=== PATIENT | female | born 1930 | race Caucasian/White ===

== ENCOUNTER 2016-04-20 20:16 | Inpatient (IN) | payer OTHER, MEDICARE ==
[~2016-04-20] VITALS: Ht 157.5 cm; Wt 54.4 kg
[~2016-04-20 20:16] MED LIST: ACEPHEN650 MG PR; ACETAMINOPHEN500 M4 PO; ACIDOPHILUS1 CAP PO; ALEVE220 MG PO; ANTIVERT25 MG PO; APAP/CODEINE 301 TAB PO; ASPERCREME HE70.8 GM PAT; ATENOLOL25 MG PO; ATIVAN1 M1 PO; ATORVASTATIN CA10 MG PO; AUGMENTIN 500M500 MG PO; BACTRIM DS 8001 TAB PO; BAYER ASPIRIN R81 MG PO; BENGAY ULTRA STREN5% TOP; CIPRO 250MG250 MG PO; CIPRO 500MG TA500 MG PO; COLACE100 MG PO; DILAUDID2 M1 PO; DILAUDID4 M1 PO; DILAUDID8 M1 PO; DULCOLAX10 MG PR; DULCOLAX5 M1 PO; FLEET ENEMA 131 UNIT RC; FUROSEMIDE20 MG; FUROSEMIDE40 MG PO; GABAPENTIN300 MG PO; GOOD NEIGHBOR650 M1 PO; HYDROCO/APAP TAB 5-3 PO; HYDROMORPHONE HC2 M1 PO; HYDROMORPHONE HC4 M1 PO; IMODIUM 2 MG. CA2 MG PO; LACTULOSE10 GM/153 PO; LASIX20 MG PO; LEVOTHYROXINE0.05 M1 PO; LEVOTHYROXINE50 MCG PO; LIDOCAINE51 TOP; LIDODERM1 EACH EXT; LOPRESSOR 25MG25 MG PO; LORAZEPAM0.5 M1 PO; LORAZEPAM1 MG PO; MACROBID100 MG PO; MACRODANTIN 50M50 MG PO; MECLIZINE HCL25 M1 PO; MECLIZINE HCL25 MG PO; METOPROLOL TART50 M1 PO; MILK OF MAGNESI30 ML PO; MIRALAX17 G1 PO; MIRALAX17 GM PO; MYRBETRIQ25 M1; NAPROXEN375 MG PO; NEURONTIN300 MG PO; NITROFURANTOIN100 MG PO; NORCO 325 MG-51 TAB PO; ONDANSETRON HCL4 MG PO; PERCOCET 325 MG1 TA2 PO; PERCOCET 5-3251 EACH PO; PRAVASTATIN40 MG PO; PREDNISONE 1 MG1 MG PO; PREDNISONE10 M2 PO; PREDNISONE5 M1 PO; PRILOSEC 20MG C20 MG PO; PROBIOTIC FORMU1 CAP PO; ROBITUSSIN COU237 ML PO; SENNA CON/DOCUS1 TAB PO; TRAMADOL HCL50 M1 PO; TRAMADOL HCL50 MG PO; TRAMADOL50 MG PO; TYLENOL TAB 32325 MG PO; TYLENOL325 M1 PO; VITAMIN D31000 IU PO; VOLTAREN100 GM TOP; ZITHROMAX250 M2 PO; ZOFRAN 4 MG TABL4 MG PO
[2016-04-20] MEDS ORDERED: HYDROMORPHONE HC2 M1 PO (20:31)
[2016-04-20] MEDS ORDERED: LEVOFLOXACIN500 M1 PO (20:32)
[2016-04-20] MEDS ORDERED: METOPROLOL TART50 M1 PO (20:36)
--- NOTE | 2016-04-20 20:39 | ED DYSPNEA/ASTHMA COMPLAINT ---
History of Present Illness General Chief Complaint: General Adult Stated Complaint: BIBA WITH PROBLEM BREATHIN Source: patient, EMS Exam Limitations: no limitations Allergies Coded Allergies: Sulfa (Sulfonamide Antibiotics) (HIVES 11/13/15) cyclobenzaprine (Severe, LIGHTHEADED 11/13/15) nitrofurantoin (Severe, SWEATING, DIZZY, RED ALL OVER, SHAKING 11/13/15) codeine (GI 11/13/15) mushroom (DIZZY 11/13/15) Reconcile Medications Aspirin (Aysha Aspirin Regimen) 81 MG ECT 2 TAB PO DAILY HEART (Reported) Atorvastatin Calcium (Lipitor) 10 MG TAB 1 TAB PO DAILY CHOLESTEROL (Reported ) Bisacodyl (Dulcolax) 5 MG TABLET.DR 2 TAB PO DAILY GI (Reported) Cholecalciferol (Vitamin D3) 1,000 IU TAB 1 TAB PO DAILY SUPPLEMENT Hydromorphone HCl 4 MG TABLET 1 TAB PO TID PRN PAIN (Reported) Hydromorphone HCl 2 MG TABLET 1 TAB PO QHS PRN PAIN (Reported) Levofloxacin 500 MG TABLET 1 TAB PO DAILY ANTIBIOTIC (Reported) Levothyroxine Sodium 50 MCG TABLET 1 TAB PO DAILY THYROID (Reported) Lorazepam 0.5 MG TABLET 1 TAB PO DAILY NEEDED ANXIETY (Reported) Meclizine HCl 25 MG TABLET 1 TAB PO TIDPRN DIZZY (Reported) Metoprolol Tartrate (Unknown Strength) TABLET 50 MG PO BID HEART/BP (Reported ) Triage Nurses Notes Reviewed? yes HPI: This patient is an 85-year-old female with a past medical history including atrial fibrillation who presented to the emergency department today brought in by ambulance for multiple complaints. This patient is a poor historian. PER EMS , this patient's visiting nurse felt that she needed to come to the emergency department for evaluation. Reported that she had been weak, incontinent which is not her baseline, fever to 102F, complaining of shortness of breath, and no appetite for food or drink. The patient is complaining of 10 out of 10 back pain. She was unable to describe the pain, but reported that it is in her lower back. She reported that she was unable to sleep last night due to the pain. She thinks that the pain began today. The patient denied any chest pain or difficulty breathing here in the emergency department. She denied any abdominal pain, nausea, vomiting. (CHAD HARRELL PA-C) Vital Signs & Intake/Output Vital Signs & Intake/Output Vital Signs Date Time Temp Pulse Resp B/P Pulse O2 O2 Flow FiO2 Ox Delivery Rate 04/21 1302 Nasal 5.0L Cannula 04/21 1023 100 117/70 04/21 0800 96 Nasal 2.5L Cannula 04/21 0702 99.0 90 20 117/70 04/21 0324 96 Nasal 2.5L Cannula 04/21 0134 102 117/67 04/21 0105 98.3 100 20 117/68 95 Nasal Cannula 04/21 0017 95 Nasal 2.5L Cannula 04/20 2346 98.3 108 20 117/68 95 Nasal 2.5L Cannula 04/20 2228 100.0 110 18 120/66 93 Nasal 2.5L Cannula 04/20 2210 100.2 04/20 2201 100.2 122 20 111/56 93 Nasal 2.0L Cannula 04/20 2200 100.2 122 20 111/56 04/20 2134 100.8 127 20 143/70 94 Nasal 2.0L Cannula 04/20 2100 101.1 04/20 205 93 Room Air 04/20 205 101.1 150 18 136/92 04/20 2045 101.1 150 18 136/92 93 Room Air ED Intake and Output 04/21 0000 04/20 1200 Intake Total 1000 Output Total Balance 1000 Intake, IV 1000 Patient 130 lb Weight Past History Travel History Traveled to [place] past 21 day No Medical History Any Pertinent Medical History? see below for history Neurological: CVA EENT: NONE Cardiovascular: AFIB, hypertension Respiratory: NONE Gastrointestinal: GERD Hepatic: NONE Renal: NONE Musculoskeletal: osteoarthritis, rheumatoid arthritis, L SCAPULA FX Psychiatric: anxiety Endocrine: hypothyroidism Blood Disorders: DEHYDRATION Cancer(s): NONE MANAGER EXPRESS/Reproductive: NONE History of MRSA: No History of VRE: No History of CDIFF: No Pneumonia Vaccine: 01/05/15 Influenza Vaccine: 01/06/16 Surgical History Surgical History: appendectomy, cholecystectomy Psychosocial History Who do you live with Patient/Self Services at Home Home Health Aide What is your primary language Indonesian Tobacco Use: Never used Family History Family History, If Any: DAUGHTER FH: diabetes mellitus Hx Contributory? No (CHAD HARRELL PA-C) Review of Systems Review of Systems Constitutional: Reports: see HPI. EENTM: Reports: no symptoms. Respiratory: Reports: see HPI. Cardiovascular: Reports: no symptoms. GI: Reports: no symptoms. Genitourinary: Reports: see HPI. Musculoskeletal: Reports: see HPI. Skin: Reports: no symptoms. Neurological/Psychological: Reports: no symptoms. All Other Systems: Reviewed and Negative (JULIO CESAR SHUKLA,CHAD) Physical Exam Physical Exam Respiratory: normal breath sounds, chest non-tender, no respiratory distress, NO WHEEZES, RALES, OR RHONCHI Comments: Well-developed well-nourished person who appears anxious PERRLA bilaterally Neck: Supple, no lymphadenopathy. No midline tenderness Back: Normal inspection. Positive midline tenderness over the lumbar spine Cardiovascular: Irregularly irregular Abdomen: Soft, nontender nondistended with normoactive bowel sounds Extremity: No edema, no calf tenderness to palpation, normal and equal pulses. Neuro: Alert oriented x3, cranial nerves II through XII grossly intact. Skin: No appreciable rash on exposed skin, skin is warm and dry. Psych: Mood and affect is anxious Core Measures ACS in differential dx? Yes Severe Sepsis Present: No Septic Shock Present: No (JULIO CESAR SHUKLA,CHAD) Progress Differential Diagnosis: asthma, AMI, bronchitis, costochondritis, CHF, COPD, musculoskeletal pain, pericarditis, pulmonary embolism, pneumonia, pneumothorax, unstable angina, ATRIAL FIBRILLATION Diagnostic Imaging: Viewed by Me: Radiology Read. Discussed w/RAD: Radiology Read. CXR Impression: PATIENT: ARMAAN REED PRESENT AGE: 85 PATIENT ACCOUNT NO: [id number] : 31 LOCATION: [facility] ORDERING PHYSICIAN: CHAD HARRELL PA-C SERVICE DATE: 04/20/16 EXAM TYPE: RAD - XRY- PORTABLE CHEST XRAY EXAMINATION: XR CHEST PORTABLE CLINICAL INFORMATION: Atrial fibrillation. Rule out mass or bleed. COMPARISON: Chest radiography 03/09/2016. TECHNIQUE: Portable view of the chest was obtained. FINDINGS: The lungs are well -expanded. Persistent left basilar opacification and blunting of the left costophrenic angle. No overt pulmonary edema. No pneumothorax. Prominence of the cardiac silhouette. No acute osseous abnormalities. IMPRESSION: Persistent left basilar opacification likely representing pleural effusion and adjacent basilar atelectasis/consolidation. No overt pulmonary edema. DICTATED BY: CARLOS KYLE MD DATE/TIME DICTATED:04/20/162118 NEUROSURGEON:NARINDER DATE/TIME TRANSCRIBED:04/20/162118 CONFIDENTIAL, DO NOT COPY WITHOUT APPROPRIATE AUTHORIZATION. <Electronically signed in Other Vendor System> SIGNED BY: CARLOS KYLE MD 04/20/162132 Initial ED EKG: AFIB, rapid ventricular rate, ST depression in lead V4 similar to prior EKG Hand-Off Endorsed To: SHIRA CUTLER MD Endorsed Time: 2250 Pending: CT, labs, other Comments: 04/20/2016 9:51:29 PM: Discussed this patient with Dr. CUTLER who recommended starting with 10 mg IV of Cardizem and increasing by 15 mg each time thereafter. (JULIO CESAR SHUKLA,CHAD) Plan of Care: Orders Procedure Date/time Status Heart Healthy Diet 04/21 B Active RT: Reevaluation 04/21 1301 Active RT: Evaluation 04/21 1301 Active TROPONIN LEVEL 04/21 0600 Complete CBC WITHOUT DIFFERENTIAL 04/21 0600 Complete BASIC ELECTROLYTES PLUS BUN&CR 04/21 0600 Complete EKG 04/21 0600 Active TRC EVALUATION (GEN) 04/21 0051 Complete PT Evaluate & Treat 04/21 0051 Active Saline Lock 04/21 0051 Active Pathway - chart 04/21 0051 Active House Staff 04/21 0051 Active STREP PNEUMO URINARY ANTIGEN 04/21 0051 Complete LEGIONELLA URINARY ANTIGEN 04/21 0051 Complete LOWER RESPIRATORY CULTURE 04/21 0051 Active Code Status 04/21 0051 Active Vital Signs 04/21 0009 Active Teach/Educate 04/21 000 Active Nutritional Intake, Monitor 04/21 8 Active Isolation 04/21 0009 Active Intake & Output 04/21 000 Active Patient Care Conference 04/21 0009 Active Activity/Ambulation 04/21 0009 Active THERAPIST ORDERS 04/21 UNK Complete Lab Add-on Test 04/21 UNK Active VTE Mechanical Prophylaxis 04/21 UNK Active Vital Signs 04/21 UNK Complete Intake & Output 04/21 UNK Complete ECHOCARDIOGRAM 04/21 UNK Active Add-on Test (ER Only) 04/20 2350 Active OXYGEN SETUP (GEN) 04/20 2329 Active Saline Lock 04/20 2329 Active Admit to inpatient 04/20 2329 Active Vital Signs 04/20 2329 Active Activity/Ambulation 04/20 232 Active Code Status 04/20 232 Complete Patient Data 04/20 2318 Active Intake & Output 04/20 2313 Active VIRAL CULTURE 04/20 2309 Active THYROID STIMULATING HORMONE 04/20 2049 Complete PHOSPHORUS 04/20 2049 Complete FREE T4 04/20 2049 Complete DIRECT BILIRUBIN 04/20 2049 Complete BLOOD CULTURE 04/20 2040 Active URINALYSIS 04/20 2040 Complete LACTIC ACID 04/20 2040 Complete D-DIMER 04/20 2040 Complete RAPID VIRAL INFLUENZA A 04/20 2037 Complete TROPONIN LEVEL 04/20 2037 Complete PARTIAL THROMBOPLASTIN TIME 04/20 2037 Complete PROTHROMBIN TIME 04/20 2037 Complete MAGNESIUM 04/20 2037 Complete COMPREHENSIVE METABOLIC PANEL 04/20 2037 Complete CBC WITHOUT DIFFERENTIAL 04/20 2037 Complete EKG 04/20 2021 Active Current Medications Sig/Yessenia Start time Last Medication Dose Stop Time Status Admin Hydromorphone HCl 2 MG Q6P PRN 04/21 0300 AC (Dilaudid) Lorazepam 0.5 MG DAILY NEEDED 04/21 030 AC (Ativan) 04/28 0259 Acetaminophen 650 MG Q6P PRN 04/21 0030 AC (Tylenol) Ibuprofen 600 MG Q6P PRN 04/21 0030 AC (Motrin) Laboratory Tests 04/21/16 0645: Anion Gap 11, Estimated GFR 60, BUN/Creatinine Ratio 17.8, Troponin I 0.02, CBC w Diff NO MAN DIFF REQ, RBC 2.60 L, MCV 92.3, MCH 31.1 H, RDW 15.7 H, MPV 7.6 , Gran % 61.5, Lymphocytes % 28.2, Monocytes % 9.3, Eosinophils % 0.5, Basophils % 0.5, Absolute Granulocytes 1.5, Absolute Lymphocytes 0.7 L, Absolute Monocytes 0.2, Absolute Eosinophils 0, Absolute Basophils 0, PUBS MCHC 33.7 04/21/16 0117: Urine Color YEL, Urine Clarity HAZY H, Urine pH 6.0, Ur Specific Minto 1.015, Urine Protein 30 H, Urine Ketones TRACE H, Urine Nitrite NEG, Urine Bilirubin NEG, Urine Urobilinogen 0.2, Ur Leukocyte Esterase NEG, Ur Microscopic SEDIMENT EXAMINED, Urine RBC 3-5, Urine WBC 1-3 H, Ur Epithelial Cells FEW, Urine Mucus RARE, Urine Hemoglobin TRACE-INTACT, Urine Glucose NEG 04/20/16 2341: Lactic Acid Cancelled 04/20/16 2310: Virus Culture Pending 04/20/162049: Lactic Acid 1.5, D-Dimer 903 H 04/20/162049: Anion Gap 13, Estimated GFR 60, BUN/Creatinine Ratio 21.1, Glucose 99, Calcium 8.8, Phosphorus 3.6, Magnesium 1.8, Total Bilirubin 1.4 H, Direct Bilirubin 0.6 H, AST 27, ALT 23, Alkaline Phosphatase 59, Troponin I 0.02, Total Protein 6.7, Albumin 3.8, Globulin 2.9, Albumin/Globulin Ratio 1.3, TSH 1.370, Free T4 0.99, PT 13.2 H, INR 1.26 H, APTT 31, CBC w Diff NO MAN DIFF REQ, RBC 3.27 L, MCV 92.2, MCH 30.9, RDW 15.6 H, MPV 7.8, Gran % 78.7 H, Lymphocytes % 13.6 L, Monocytes % 6.8, Eosinophils % 0.2, Basophils % 0.7, Absolute Granulocytes 3.2, Absolute Lymphocytes 0.6 L, Absolute Monocytes 0.3, Absolute Eosinophils 0, Absolute Basophils 0, PUBS MCHC 33.5 Microbiology 04/21 116 URINE ROUT: Legionella Antigen - COMP 04/21 116 URINE ROUT: Streptococcus pneumoniae Antigen (M - COMP 04/21 50 LOWER RESP: Respiratory Culture - COLB 04/21 50 LOWER RESP: Gram Stain - COLB 04/20 2134 BLOOD: Blood Culture - RES 04/20 2049 BLOOD: Blood Culture - RES Departure Departure Disposition: STILL A PATIENT Condition: Stable Clinical Impression Primary Impression: Pneumonia Qualifiers: Pneumonia type: due to unspecified organism Laterality: unspecified laterality Lung location: unspecified part of lung Qualified Code: J18.9 - Pneumonia, unspecified organism Referrals: SHEY CARDENAS MD (PCP/Family) Departure Forms: Customer Survey General Discharge Information Admission Note Documentation of Exam: Documentation of any treatments & extenuating circumstances including Concerns Regarding Discharge (functional status, medication knowledge or non-compliance, living conditions, etc.) that warrant an admission rather than observation: [ This patient is an 85-year-old female with a past medical history including atrial fibrillation who presented to the emergency department today for evaluation of weakness, shortness of breath, and lower back pain. Likely persistent pneumonia seen on chest x-ray despite outpatient antibiotic therapy. This patient will need to be brought into the emergency department for cardiac monitoring, cardiology consultation, possible Cardizem drip, IV antibiotics, gentle hydration, trend labs, follow-up blood cultures, PT consultation, and close monitoring. Premature discharge could prove medically harmful.] (CHAD HARRELL PA-C) PA/SAFE EXPERT Co-Sign Statement Statement: ED Attending supervision documentation- x I saw and evaluated the patient. I have also reviewed all the pertinent lab results and diagnostic results. I agree with the findings and the plan of care as documented in the PA's/SAFE EXPERT's documentation. [] I have reviewed the ED Record and agree with the PA's/SAFE EXPERT's documentation. [] Additions or exceptions (if any) to the PAs/SAFE EXPERT's note and plan are summarized below: [] (OMAYRA SHAIKH,SHIRA) Critical Care Note Critical Care Note Critical Care Time: non-applicable (CHAD HARRELL PA-C)
--- NOTE | 2016-04-20 20:40 | NUR ---
PT TO ROOM 21 BIBA FROM HOME FOR GENERAL WEAKNESS, LETHARGY, FEVER, SOB, COUGH, NO APPETITE, INCONTINENCE x2DAYS. PT CURRENTLY ON LEVOFLOXACIN FOR ?PNEUMONIA PER HER PCP. PT ARRIVED AAOx2, RAPID AFIB 150'S ON REED FIXER, TEMP 101.1, NO RESP DISTRESS NOTED, O2SAT 93% ON RA. PT DENIES CHEST PAIN,ABD PAIN, DENIES SOB, C/O BACK PAIN. HX OF AFIB,HTN, CVA, GERD, ARTHRITIS.
--- NOTE | 2016-04-20 20:51 | NUR ---
DARIUS BONILLA AT BEDSIDE FOR PT EVAL. BLOOD DRAWN AND SENT TO LAB-[facility], 1ST BC.
--- NOTE | 2016-04-20 20:52 | NUR ---
CARDIZEM 10MG IV ADMINISTERED PER ORDER FOR RAPID AFIB 150'S.
[2016-04-20 20:59] LABS: ABSOLUTE BASOPHIL COUNT 0 /CUMM (0.0-0.2); ABSOLUTE EOSINOPHIL COUNT 0 /CUMM (0.0-0.7); ABSOLUTE GRANULOCYTE CT 3.2 /CUMM (1.4-6.5); ABSOLUTE LYMPH COUNT 0.6 /CUMM (1.2-3.4); ABSOLUTE MONOCYTE COUNT 0.3 /CUMM (0.10-0.60); BASOPHIL % 0.7 % (0.0-2.0); EOSINOPHIL % 0.2 % (0-5); GRANULOCYTE % 78.7 % (42.2-75.2); HEMATOCRIT 30.1 % (37-47); MEAN CORPUSCULAR HGB 30.9 PG (27.0-31.0); MEAN CORPUSCULAR HGB CONC 33.5 G/DL (33.0-37.0); MEAN CORPUSCULAR VOLUME 92.2 FL (81.0-99.0); MEAN PLATELET VOLUME 7.8 FL (7.4-10.4); PLATELET COUNT 230 /CUMM (130-400); RBC DISTRIBUTION WIDTH 15.6 % (11.5-14.5); RED BLOOD CELL CT 3.27 /CUMM (4.20-5.40)
--- NOTE | 2016-04-20 21:00 | NUR ---
NS AND OFIRMEV INFUSING PER EMAR.
[2016-04-20 21:14] LABS: PT 13.2 SEC (9.4-12.5); PTT 31 SEC (25-37)
--- NOTE | 2016-04-20 21:33 | RADIOLOGY REPORT ---
EXAMINATION: XR CHEST PORTABLE CLINICAL INFORMATION: Atrial fibrillation. Rule out mass or bleed. COMPARISON: Chest radiography 03/09/2016. TECHNIQUE: Portable view of the chest was obtained. FINDINGS: The lungs are well-expanded. Persistent left basilar opacification and blunting of the left costophrenic angle. No overt pulmonary edema. No pneumothorax. Prominence of the cardiac silhouette. No acute osseous abnormalities. IMPRESSION: Persistent left basilar opacification likely representing pleural effusion and adjacent basilar atelectasis/consolidation. No overt pulmonary edema.
--- NOTE | 2016-04-20 22:00 | NUR ---
HR REMAINS AT AFIB 120'S, PT MEDICATED WITH CARDIZEM 15MG IV PER ORDER. TEMP 100.2 AT THIS TIME.
--- NOTE | 2016-04-20 22:29 | NUR ---
PT MEDICATED WITH MORPHINE FOR BACK PAIN, TOLERATED WELL. VSS. PT SENT TO CAT SCAN BY MOON.
--- NOTE | 2016-04-20 23:21 | CT SCAN REPORT ---
EXAMINATION: CT HEAD WITHOUT CONTRAST CLINICAL INFORMATION: Altered mental status COMPARISON: 11/13/2015 TECHNIQUE: Contiguous axial imaging was performed from the skull base to vertex without intravenous administration of contrast. DLP: 743.80 mGy-cm. FINDINGS: Assessment is somewhat limited due to patient motion artifact. There is no evidence of acute intracranial hemorrhage or territorial infarction. No abnormal mass effect or midline shift is seen. Zhu to white matter differentiation is well preserved. No extra-axial fluid collections are identified. The ventricles are normal in size. A chronic hypoattenuating focus in the left basal ganglia may reflect a chronic lacunar infarct or prominent perivascular space. There is mild periventricular white matter hypoattenuation consistent with chronic small vessel ischemic disease. The osseous structures and soft tissues are normal. The mastoid air cells and visualized portions of the paranasal sinuses are well aerated. IMPRESSION: No acute intracranial pathology.
--- NOTE | 2016-04-20 23:31 | CT SCAN REPORT ---
EXAMINATION: CT ANGIOGRAM OF THE CHEST WITH AND WITHOUT CONTRAST (CT PULMONARY ANGIOGRAM FOR PE) CLINICAL INFORMATION: R/O PE
Signs Symptoms: SOB, AFIB COMPARISON: No pertinent prior studies are available for comparison. TECHNIQUE: Prior to contrast administration, noncontrast localization images were obtained. Subsequently, multidetector volumetric imaging was performed from the thoracic inlet to below the diaphragms following the administration of 120 mL Optiray 350 intravenous contrast. No contrast reaction reported Sagittal, coronal, and MIP oblique sagittal reformatted images were obtained on the CT workstation, uploaded to PACS, and reviewed. Total exam dose-length product 255.46 mGy-cm FINDINGS: QUALITY OF STUDY/CONTRAST BOLUS: Satisfactory. PULMONARY ARTERIES: No acute appearing central or segmental pulmonary emboli. There is a questionable right lower lobe segmental pulmonary artery web(image [id number]) suggesting sequelae of chronic embolus. The main pulmonary artery is dilated to 3.4 cm in diameter, suspicious for underlying pulmonary hypertension. THORACIC AORTA: No aneurysm or dissection. There is atherosclerotic calcification along the aorta. LUNG: There is partial opacification of the bilateral lower lobes which may reflect a combination of atelectasis and consolidation. There is mild patchy subpleural opacity in the posterior right upper lobe. Biapical scarring is noted. Scattered mild subsegmental atelectasis is also noted. PLEURA: Trace bilateral pleural effusions are present. MEDIASTINUM: The visualized thyroid gland is grossly unremarkable, although suboptimally assessed due to streak artifact in some regions. No mediastinal lymphadenopathy is seen. There is moderate cardiomegaly. Coronary artery calcifications are present. No evidence of septal bowing or right heart strain. CHEST WALL/AXILLA: No axillary or internal mammary lymphadenopathy. OSSEOUS STRUCTURES: There is a healed fracture of the manubrium. Healed rib fractures are also noted. Degenerative changes are noted in the spine. UPPER ABDOMEN: Grossly unremarkable. No reflux of contrast into the hepatic veins to suggest elevated right heart pressures. IMPRESSION: 1. No acute pulmonary embolus identified. 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 Dilated main pulmonary artery, suspicious for pulmonary hypertension. 2. Partial opacification of the bilateral lower lobes, which may reflect atelectasis and/or consolidation. 3. Trace pleural effusions. VTE: Negative
--- NOTE | 2016-04-20 23:40 | CT SCAN REPORT ---
EXAMINATION: CT LUMBAR SPINE WITH CONTRAST CLINICAL INFORMATION: Rule out cauda equina COMPARISON: 03/08/2016 TECHNIQUE: 120 Optiray 320 intravenous contrast. Multidetector helical imaging was performed through the lumbar spine. Coronal and sagittal reformatted images were created at the technologist workstation. DLP: 526.83 mGy-cm. FINDINGS: There is anatomic alignment of the lumbar vertebral bodies and posterior elements. Mild to moderate loss of height at L5 is again demonstrated with vertebral body cement; degree of compression is unchanged from 03/08/2016. Remaining lumbar vertebral body heights are maintained. Intervertebral disc spaces are relatively well-preserved. There is facet arthropathy at L4-L5 and L5-S1. No acute fracture is seen. Soft tissue detail is limited on CT. There is thickening of the ligamentum flavum and L2-L3 with mild central stenosis suspected. There is also thickening of the ligamentum flavum flavum at L3-L4 with associated disc protrusion, suspected to result in moderate central canal narrowing. Mild central canal narrowing is suspected at L4-L5, with thickening of the ligamentum flavum. No acute appearing paraspinal abnormality is seen. There are partially visualized small pleural effusions with adjacent parenchymal opacification at the lung bases. There is atherosclerotic calcification along the aorta. IMPRESSION: 1. Limited assessment of the soft tissues with CT. Degenerative changes as described above. Moderate central canal narrowing is suspected at L3-L4, with likely mild central canal narrowing at L2-L3 and L4-L5. If clinically warranted, this would be better further assessed with MRI. 2. 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
--- NOTE | 2016-04-20 23:58 | NUR ---
PT STATED SHE IS NOT GIVING A URINE SAMPLE AT THIS TIME.
--- NOTE | 2016-04-21 00:04 | History & Physical ---
TOMMY JEAN MD 04/21/16 0003: General Information and HPI MD Statement: I have seen and personally examined ARMAAN REED and documented this H&P. The patient is a 85 year old F who presented with a patient stated chief complaint of [cold]. Source of Information: patient Exam Limitations: poor historian History of Present Illness: 85-year-old female with PMH of atrial fibrillation on metoprolol and not on anticoagulation due to falls and GI bleed, hypertension, hypothyroidism, presented to the hospital for a "cold". Her only complains are cough productive of thick yellow sputum over the last 2-3 days. As per ED note, visiting nurse noted weakness, urinary incontinence (not her baseline), fever, poor PO intake, and thought pt should be evaluated in the hospital. Pt denied having a visiting nurse, denies weakness, urinary incontinence. She noted fever that started yesterday morning but does not recall the temperature. Her appetite is "so-so". As per ED note, pt was also complaining of 10/10 back pain, but denied it to us. Pt reports that she lives by herself without any nursing aids. Her girl friend comes by to help her with laundry etc. As per pt, her her girlfriend and daughter came to visit her today and thought she "doesn't look good". She reports shortness of breath once she came to the ED, and was put on supplemental oxygen, up to 2.5L. Her shortness of breath has not improved. Pt was admitted at [facility] in Mar 2016 and discharged to rehab.Pt initially said she was in rehab for months, but later said she has not been to rehab in at least 3 years. She went to see Dr. Mccormack a day prior to admission, and was prescribed levaquin. She has only taken 1 pill prior to coming to the hospital. In the ED, her HR was found to be elevated, up to 150, in atrial fibrillation, and she was given 1 X 10 mg IV cardizem, 1 X 15 mg IV cardizem, and her HR was still in the 120s. Low dose cardizem drip started by the ED. Pt refused to have another IV line for antibiotics. Pt refused to get straight cathed for urine sample, but eventually was able to give a sample. We will hold the cardizem drip for an hour to let the antibiotics run. Allergies/Medications Allergies: Coded Allergies: Sulfa (Sulfonamide Antibiotics) (HIVES 11/13/15) cyclobenzaprine (Severe, LIGHTHEADED 11/13/15) nitrofurantoin (Severe, SWEATING, DIZZY, RED ALL OVER, SHAKING 11/13/15) codeine (GI 11/13/15) mushroom (DIZZY 11/13/15) Home Med list Aspirin (Aysha Aspirin Regimen) 81 MG ECT 2 TAB PO DAILY HEART (Reported) Atorvastatin Calcium (Lipitor) 10 MG TAB 1 TAB PO DAILY CHOLESTEROL (Reported ) Bisacodyl (Dulcolax) 5 MG TABLET.DR 2 TAB PO DAILY GI (Reported) Cholecalciferol (Vitamin D3) 1,000 IU TAB 1 TAB PO DAILY SUPPLEMENT Hydromorphone HCl 4 MG TABLET 1 TAB PO TID PRN PAIN (Reported) Hydromorphone HCl 2 MG TABLET 1 TAB PO QHS PRN PAIN (Reported) Levofloxacin 500 MG TABLET 1 TAB PO DAILY ANTIBIOTIC (Reported) Levothyroxine Sodium 50 MCG TABLET 1 TAB PO DAILY THYROID (Reported) Lorazepam 0.5 MG TABLET 1 TAB PO DAILY NEEDED ANXIETY (Reported) Meclizine HCl 25 MG TABLET 1 TAB PO TIDPRN DIZZY (Reported) Metoprolol Tartrate (Unknown Strength) TABLET 50 MG PO BID HEART/BP (Reported ) Past History Travel History Traveled to [place] past 21 day No Medical History Neurological: CVA EENT: NONE Cardiovascular: AFIB, hypertension Respiratory: NONE Gastrointestinal: GERD Hepatic: NONE Renal: NONE Musculoskeletal: osteoarthritis, rheumatoid arthritis, L SCAPULA FX Psychiatric: anxiety Endocrine: hypothyroidism Blood Disorders: DEHYDRATION Cancer(s): NONE CORPORATE STRATEGY ASSOCIATE/Reproductive: NONE History of MRSA: No History of VRE: No History of CDIFF: No Pneumonia Vaccine: 01/05/15 Influenza Vaccine: 01/06/16 Surgical History Surgical History: appendectomy, cholecystectomy Past Family/Social History Family History Relations & Conditions if any DAUGHTER FH: diabetes mellitus Psychosocial History Where do you live? Home Who Do You Live With? self Services at Home: Home Health Aide Smoking Status: Never Smoked ETOH Use: denies use Illicit Drug Use: denies illicit drug use Functional Ability ADLs Independent: dressing, eating, toileting. Needs Assist: bathing. Ambulation: walker IADLs Independent: telephone, medication admin. Needs Assist: shopping, housework, finances, food prep, transportation. Review of Systems Review of Systems Constitutional: Reports: fever. Denies: chills. EENTM: Denies: visual changes. Cardiovascular: Denies: chest pain, palpitations. Respiratory: Reports: cough, short of breath, sputum production. GI: Denies: abdominal pain, bloating, constipation, diarrhea, nausea, vomiting. Genitourinary: Denies: dysuria, frequency, pain. Exam & Diagnostic Data Last 24 Hrs of Vital Signs/I&O Vital Signs Date Time Temp Pulse Resp B/P Pulse O2 O2 Flow FiO2 Ox Delivery Rate 04/21 0134 102 117/67 04/21 0105 98.3 100 20 117/68 95 Nasal Cannula 04/21 0017 95 Nasal 2.5L Cannula 04/20 2346 98.3 108 20 117/68 95 Nasal 2.5L Cannula 04/20 2228 100.0 110 18 120/66 93 Nasal 2.5L Cannula 04/20 2210 100.2 04/20 2201 100.2 122 20 111/56 93 Nasal 2.0L Cannula 04/20 2200 100.2 122 20 111/56 04/20 2134 100.8 127 20 143/70 94 Nasal 2.0L Cannula 04/20 2100 101.1 04/20 2053 93 Room Air 04/20 2050 101.1 150 18 136/92 04/20 2045 101.1 150 18 136/92 93 Room Air Intake & Output 04/21 0800 04/21 0000 04/20 1600 Intake Total 1000 Output Total Balance 1000 Intake, IV 1000 Patient 58.967 kg Weight Physical Exam General Appearance Alert, No Acute Distress, oriented to place, but not to time , irritable Skin No Significant Lesion HEENT Atraumatic, Mucous Membr. moist/pink, kept closing her eyes when we tried to examine her pupils Neck Supple, +2 Carotid Pulse wo Bruit Lymphatic Axillary nl, Cervical nl Cardiovascular irregular rate, tachycardic Lungs rhonchi over lung bases Abdomen Normal Bowel Sounds, Soft, No Tenderness Neurological Normal Speech Extremities lower extremities are big in comparison to the rest of her body, but she says that is her baseline. tender on left calf. Vascular Normal Pulses Last 24 Hrs of Labs/Karel: Laboratory Tests 04/21/16 0117: Urine Color YEL, Urine Clarity HAZY H, Urine pH 6.0, Ur Specific [place] 1.015, Urine Protein 30 H, Urine Ketones TRACE H, Urine Nitrite NEG, Urine Bilirubin NEG, Urine Urobilinogen 0.2, Ur Leukocyte Esterase NEG, Ur Microscopic SEDIMENT EXAMINED, Urine RBC 3-5, Urine WBC 1-3 H, Ur Epithelial Cells FEW, Urine Mucus RARE, Urine Hemoglobin TRACE-INTACT, Urine Glucose NEG 04/20/162049: Lactic Acid 1.5, D-Dimer 903 H 04/20/162049: Anion Gap 13, Estimated GFR 60, BUN/Creatinine Ratio 21.1, Glucose 99, Calcium 8.8, Phosphorus 3.6, Magnesium 1.8, Total Bilirubin 1.4 H, Direct Bilirubin 0.6 H, AST 27, ALT 23, Alkaline Phosphatase 59, Troponin I 0.02, Total Protein 6.7, Albumin 3.8, Globulin 2.9, Albumin/Globulin Ratio 1.3, PT 13.2 H, INR 1.26 H, APTT 31, CBC w Diff NO MAN DIFF REQ, RBC 3.27 L, MCV 92.2, MCH 30.9, RDW 15.6 H, MPV 7.8, Gran % 78.7 H, Lymphocytes % 13.6 L, Monocytes % 6.8, Eosinophils % 0.2, Basophils % 0.7, Absolute Granulocytes 3.2, Absolute Lymphocytes 0.6 L, Absolute Monocytes 0.3, Absolute Eosinophils 0, Absolute Basophils 0, PUBS MCHC 33.5 Microbiology 04/21 116 URINE ROUT: Legionella Antigen - COMP 04/21 116 URINE ROUT: Streptococcus pneumoniae Antigen (M - COMP 04/21 50 LOWER RESP: Respiratory Culture - ORD 04/21 50 LOWER RESP: Gram Stain - ORD 04/20 2134 BLOOD: Blood Culture - RECD 04/20 2049 BLOOD: Blood Culture - RECD Diagnostic Data EKG Results atrial fibrillation, rapid ventricular rate CXR Results IMPRESSION: Persistent left basilar opacification likely representing pleural effusion and adjacent basilar atelectasis/consolidation. No overt pulmonary edema. Other Results Chest CTA IMPRESSION: 1. No acute pulmonary embolus identified. 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 Dilated main pulmonary artery, suspicious for pulmonary hypertension. 2. Partial opacification of the bilateral lower lobes, which may reflect atelectasis and/or consolidation. 3. Trace pleural effusions. VTE: Negative Lumbar spine CT: IMPRESSION: 1. Limited assessment of the soft tissues with CT. Degenerative changes as described above. Moderate central canal narrowing is suspected at L3-L4, with likely mild central canal narrowing at L2-L3 and L4-L5. If clinically warranted, this would be better further assessed with MRI. 2. 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 Head CT: IMPRESSION: No acute intracranial pathology. Assessment/Plan Assessment: 85-year-old female with PMH of atrial fibrillation on metoprolol and not on anticoagulation due to falls and GI bleed, hypertension, hypothyroidism, admitted to telemetry for atrial fibrillation with rapid ventricular rate, and pneumonia. # Atrial fibrillation with rapid ventricular rate - Pt sees Dr. Davila - On metoprolol 50 bid at home * Continue cardizem drip low dose 2.5ml/hr * Continue metoprolol 50 bid * Cardio consult in am * Repeat ekg and trop at 6am # Pneumonia, could be healthcare acquired pneumonia given recent hospitalization , and rehab - rapid flu negative - cough, SOB, fever - Negative acute PE, shows chronic PE * Follow BC X 2, UA, UC, urine legionella, urine strep pneumo, LRC * Start vancomycin and ceftazidime * mucinex 600 q12 # Back pain: central canal narrowingL3-L4 - Given 2 mg IV morphine X 1 * Consider MRI if persists * Pain pathway with dilaudid for severe pain, motrin moderate, tylenol mild # Hypothyroid * Continue levothyroxine 50 mcg daily # Anxiety * Continue lorazepam 0.5 mg prn # Other home meds * Continue meclizine 25 tid prn * Continue aspirin 81 mg daily * Continue atorvastain 10 mg daily * Continue vit D 1000 IU daily Diet: heart healthy DVT ppx: mech and pharm FULL CODE As Ranked By This Provider Problem List: 1. Atrial fibrillation with RVR 2. Pneumonia Qualifiers Pneumonia type: due to unspecified organism Laterality: unspecified laterality Lung location: unspecified part of lung Qualified Code: J18.9 - Pneumonia, unspecified organism Core Measures/Miscellaneous Acute Coronary Syndrome ACS Diagnosis: No Cerebrovascular Accident CVA/TIA Diagnosis: No Congestive Heart Failure CHF Diagnosis: No Venous Thromboembolism VTE Risk Factors: Acute medical illness, Age > 40 VTE Prophylaxis Ordered Inpt: Mech & Pharm No Mech VTE prophylaxis d/t: No contraindications No VTE Pharm Prophylaxis d/t: No contraindications VTE Diagnosis: No VTE Type: NONE VTE Confirmed by (Test): CT CHEST ANGIOGRAM Severe Sepsis Severe Sepsis Present: No Septic Shock Septic Shock Present: No Miscellaneous Documentation Attending Case Discussed With: FISH العلي MD Primary Care Physician: SHEY CARDENAS MD Patient sees these Specialists Dr Davila cardiology Level of Patient Care: Telemetry VIVI NAILS 04/21/16 0328: Resident Review Statement Resident Statement: examined this patient, discussed with sports management internship, agreed with sports management internship, reviewed EMR data (avail), reviewed images, amended to note Other Findings: This is 85-year-old female with past medical history of atrial fibrillation on metoprolol and not on anticoagulation due to falls and GI bleed, hypertension, hypothyroidism, GERD, CVA, rheumatoid arthritis, osteoarthritis, anxiety questionable history of dementia. Presented to the hospital by EMS due to fever , difficulty breathing. According to the visiting nurse and her fever was 102 Fahrenheit, and she stated that the patient looked weak and tired and she was complaining of severe back pain. Patient stated that she had cough productive of thick yellow sputum over the last 2-3 days. Patient was recently discharged from [facility] to short-term rehabilitation on March 2016 that was for mechanical fall, rapid atrial fibrillation and a questionable pneumonia that was treated with 4 day course of azithromycin. The patient stated that she saw her primary care doctor who prescribed for her levofloxacin and she take only 1 dose that was yesterday. CTA of the chest was done on showed chronic subsegmental right lower lobe pulmonary arterial with as sequela of chronic embolus. No acute PE. Physical examination, lab and imaging as above. Problem list: -Rapid ventricular rate atrial fibrillation -Fever, difficulty breathing most likely due to hospital-acquired pneumonia -Chronic hyponatremia -Chronic back pain Plan: -Admit patient to telemetry floor -Vitals every shift strict DESTINY's -Serial troponin and EKG -Start the patient on IV Cardizem drip -Start the patient on IV ceftazidime and vancomycin -Start the patient on Muconix, TRC nebs as needed -IV fluid hydration 75 mL/hour for 1 bag. -streptococcus, Legionella urine antigen, sputum and blood culture -Urinalysis, urine culture, check TSH and free T4 -Continue the patient home medication including metoprolol -Cardiology consultation in a.m. -Physical therapy consultation -Conferred patient home medication. -Heart healthy diet -Pain pathway -DVT prophylaxis subcutaneous heparin -Full code SEVERIANO SHAIKH, [facility] 04/21/16 0538: Attending MD Review Statement Attending Statement Attending MD Statement: examined this patient, discuss w/resident/PA/INTERNATIONAL MARKETING INTERN, agreed w/resident/PA/INTERNATIONAL MARKETING INTERN Attending Assessment/Plan: 85 yo F with h/o HTN, Afib not on AC 2/ fall and hematoma, RA, hypothyroidism, CVA, last admitted to [facility] (Mar 2016) for fall, Afib with RVR and possible pneumonia that was monitored off abx then discharged to SNF, is now brought in from home for 3-day h/o weakness, lethargy, fever 102, productive cough/ congestion and dyspnea. No sick contacts. She was started on levaquin by PCP for possible pneumonia of which she has only taken 1 dose. She denies urinary symptoms. Vitals: Tmax 101.1, tachycardic to 120-130's, BP 111/56, sats 93% on 2L. Chest bilateral basal rhonchi. LE edema is chronic. Labs: WBC 4.0, Na 135, BUN 19, trop neg, UA neg, D-dimer 903, CXR persistent left basilar opacification pleural effusion with consolidation/atelectasis. CT head neg. CTA chest: no acute PE. RLL segmental arterial web ?sequelae of chronic embolus, pulmonary hypertension. Partial opacification of b/l lower lobes consolidation/ atelectasis. Lumbar spine CT: degenerative changes, moderate central canal narrowing. Echo (2014): EF 60-65%. 1. Acute bronchitis with possible HCAP (unclear when she was discharged from SNF ). Panculture, O2 supplementation, TRC nebs, will cover with Ceftaz and Vanco, consider narrowing antibiotics in AM, Mucinex BID. Gentle hydration. She has pulmonary hypertension with sequelae of chronic embolus on CT. 2. Afib with rapid ventricular response. Rule out, obtain Echo, Cardio consult. Low dose cardizem drip, restart metoprolol and uptitrate dose based on HR. No anticoagulation. Check TSH, free T4. She is not volume overloaded. DVT ppx Lovenox. Full code.
--- NOTE | 2016-04-21 00:27 | NUR ---
HOUSESTAFF AT BEDSIDE FOR EVAL.
[2016-04-21 01:05] VITALS: BP 117/68
--- NOTE | 2016-04-21 01:29 | NUR ---
URINE TRIO SENT TO LAB.
[2016-04-21 01:34] VITALS: BP 117/67
--- NOTE | 2016-04-21 03:13 | NUR ---
LATE ENTRY: PT STARTED ON 2.5 MG CARDIZEM GTT AT 0100. B/P-117/60. IV FORTAZ AND VANCO ADMINISTERED ORDERED. PT REFUSED NEW IV LINE FOR FLUIDS. NO C/O PAIN OR DISCOMFORT/ AFIB ON THE MONITOR HR 90-105. POX 96 ON 2L. REPEAT TROP AND EKG AT 0600/
--- NOTE | 2016-04-21 05:25 | Admission Certification ---
Admission Certification Certification Statement - As attending physician, I certify that at the time of - admission, based on clinical presentation, severity of - symptoms, need for further diagnostic testing and - therapeutic interventions, and risk of adverse outcomes - without in-hospital treatment, in my clinical assessment, - this patient requires an acute hospital stay for a minimum - of two nights or longer. I have also considered psychsocial - factors such as support system, advanced age, financial - issues, cognitive issues, and failed out-patient treatments, - past re-admission history, safety of patient, and lack of - compliance as applicable. Specific rationale supporting this admission is: Acute bronchitis, HCAP. Afib with rapid ventricular response.
--- NOTE | 2016-04-21 06:48 | NUR ---
BLOOD DRAWN AND SENT TO LAB [facility]
[2016-04-21 07:02] VITALS: BP 117/70
[2016-04-21 07:02] LABS: ABSOLUTE BASOPHIL COUNT 0 /CUMM (0.0-0.2); ABSOLUTE EOSINOPHIL COUNT 0 /CUMM (0.0-0.7); ABSOLUTE GRANULOCYTE CT 1.5 /CUMM (1.4-6.5); ABSOLUTE LYMPH COUNT 0.7 /CUMM (1.2-3.4); ABSOLUTE MONOCYTE COUNT 0.2 /CUMM (0.10-0.60); BASOPHIL % 0.5 % (0.0-2.0); EOSINOPHIL % 0.5 % (0-5); GRANULOCYTE % 61.5 % (42.2-75.2); MEAN CORPUSCULAR HGB 31.1 PG (27.0-31.0); MEAN CORPUSCULAR HGB CONC 33.7 G/DL (33.0-37.0); MEAN CORPUSCULAR VOLUME 92.3 FL (81.0-99.0); MEAN PLATELET VOLUME 7.6 FL (7.4-10.4); PLATELET COUNT 174 /CUMM (130-400); RBC DISTRIBUTION WIDTH 15.7 % (11.5-14.5); WHITE BLOOD CELL COUNT 2.4 /CUMM (4.8-10.8)
--- NOTE | 2016-04-21 11:26 | NUR ---
CARDIZEM DRIP CONTINUES AT 2.5 ML/H. AFIB ON THE MONITOR HR- 80-100. REFUSED BREAKFAST. 2L NC. EKG AND TROP AT 0600, TROP NEGATIVE. EKG REVIEWED BY MD URBINA. NNO. NS @ 75 ML/H. NO C/O PAIN. MEDICATIONS ADMINISTERED ORDERED.
--- NOTE | 2016-04-21 13:08 | PN- Att Addend ---
Attending Addendum Attending Brief Note 85F PMH HTN, chronic atrial fibrillation not on anti-coagulation secondary to falls, rheumatoid arthritis, history of CVA with recent admission for a-fib with RVR and CAP, transferred to SNF. Admitted overnight with 3 days of lethargy, febrile 102, productive cough. Spikes 101 overnight. Still lethargic but has no complaints when woken aside from weakness. HR 90-100 on Cardizem drip. Physical exam reveals rapid rate with no murmurs and bibasilar coarse breath sounds. Laboratory Tests 04/21/16 0645: Anion Gap 11, Estimated GFR 60, BUN/Creatinine Ratio 17.8, Troponin I 0.02, CBC w Diff NO MAN DIFF REQ, RBC 2.60 L, MCV 92.3, MCH 31.1 H, RDW 15.7 H, MPV 7.6 , Gran % 61.5, Lymphocytes % 28.2, Monocytes % 9.3, Eosinophils % 0.5, Basophils % 0.5, Absolute Granulocytes 1.5, Absolute Lymphocytes 0.7 L, Absolute Monocytes 0.2, Absolute Eosinophils 0, Absolute Basophils 0, PUBS MCHC 33.7 04/21/16 0117: Urine Color YEL, Urine Clarity HAZY H, Urine pH 6.0, Ur Specific [place] 1.015, Urine Protein 30 H, Urine Ketones TRACE H, Urine Nitrite NEG, Urine Bilirubin NEG, Urine Urobilinogen 0.2, Ur Leukocyte Esterase NEG, Ur Microscopic SEDIMENT EXAMINED, Urine RBC 3-5, Urine WBC 1-3 H, Ur Epithelial Cells FEW, Urine Mucus RARE, Urine Hemoglobin TRACE-INTACT, Urine Glucose NEG 04/20/16 2341: Lactic Acid Cancelled 04/20/16 2310: Virus Culture Pending 04/20/162049: Lactic Acid 1.5, D-Dimer 903 H 04/20/162049: Anion Gap 13, Estimated GFR 60, BUN/Creatinine Ratio 21.1, Glucose 99, Calcium 8.8, Phosphorus 3.6, Magnesium 1.8, Total Bilirubin 1.4 H, Direct Bilirubin 0.6 H, AST 27, ALT 23, Alkaline Phosphatase 59, Troponin I 0.02, Total Protein 6.7, Albumin 3.8, Globulin 2.9, Albumin/Globulin Ratio 1.3, TSH 1.370, Free T4 0.99, PT 13.2 H, INR 1.26 H, APTT 31, CBC w Diff NO MAN DIFF REQ, RBC 3.27 L, MCV 92.2, MCH 30.9, RDW 15.6 H, MPV 7.8, Gran % 78.7 H, Lymphocytes % 13.6 L, Monocytes % 6.8, Eosinophils % 0.2, Basophils % 0.7, Absolute Granulocytes 3.2, Absolute Lymphocytes 0.6 L, Absolute Monocytes 0.3, Absolute Eosinophils 0, Absolute Basophils 0, PUBS MCHC 33.5 Vital Signs Date Time Temp Pulse Resp B/P Pulse O2 O2 Flow FiO2 Ox Delivery Rate 04/21 1302 Nasal 5.0L Cannula 04/21 1023 100 117/70 04/21 0800 96 Nasal 2.5L Cannula 04/21 0702 99.0 90 20 117/70 Intake & Output 04/21 1600 Intake Total 430 Output Total 350 Balance 80 Intake, IV 310 Intake, Oral 120 Output, Urine 350 Plan - Continue Vancomycin and Ceftazidime for now for possible HCAP - Follow blood and sputum cultures - TRC/nebulizer treatment - Continue Metoprolol and Cardizem drip - Follow cardiology recommendations - Follow up echocardiogram - Continue home medications - DVT PPx
--- NOTE | 2016-04-21 15:15 | NUR ---
[facility] ASSIGNMENT [phone]
[2016-04-21 15:54] VITALS: BP 130/67
[2016-04-21 16:54] VITALS: BP 120/82
[2016-04-21 22:57] VITALS: BP 130/72
--- NOTE | 2016-04-22 05:56 | PN- Housestaff ---
SAM OHARA 04/22/16 0552: Subjective Follow-up For: 1. Acute bronchitis ? HCAP 2. Chronic Pulmonary emboli with ? pulmonary hypertension 3. Afib with rapid ventricular response Subjective: seens and examined the patient today, c/o mutiple episodes of diarrhea. Review of Systems Constitutional: Reports: see HPI. Objective Last 24 Hrs of Vital Signs/I&O Vital Signs Date Time Temp Pulse Resp B/P Pulse O2 O2 Flow FiO2 Ox Delivery Rate 04/22 0424 92 Nasal 4.0L Cannula 04/22 0000 Nasal 3.0L Cannula 04/21 2257 99.6 95 20 130/72 96 Nasal 3.0L Cannula 04/21 2127 112 130/70 04/21 2100 93 Nasal 3.0L Cannula 04/21 1700 94 Nasal 3.0L Cannula 04/21 1654 98.3 90 18 120/82 91 Nasal 3.0L Cannula 04/21 1554 98.5 88 16 130/67 98 Nasal 3.0L Cannula 04/21 1302 Nasal 5.0L Cannula 04/21 1023 100 117/70 04/21 0800 96 Nasal 2.5L Cannula 04/21 0702 99.0 90 20 117/70 Intake & Output 04/22 0800 04/22 0000 04/21 1600 Intake Total 700 510 Output Total 400 550 Balance 300 -40 Intake, IV 300 310 Intake, Oral 400 200 Number 3 Bowel Movements Output, Urine 400 550 Physical Exam General Appearance: Alert, Oriented X3, Cooperative, Mild Distress Skin: No Rashes, No Breakdown, No Significant Lesion HEENT: Atraumatic, PERRLA, EOMI Neck: Supple, No JVD, No thryomegaly Cardiovascular: Normal S1, Normal S2, No Murmurs Lungs: Clear to Auscultation, Normal Air Movement Abdomen: Normal Bowel Sounds, Soft, No Tenderness Neurological: Normal Speech, Strength at 5/5 X4 Ext, Normal Tone, Sensation Intact Extremities: No Clubbing, No Cyanosis, Normal Pulses, b/l LE edema Vascular: Normal Pulses Current Medications: Current Medications Sig/Yessenia Start time Last Medication Dose Route Stop Time Status Admin Acetaminophen 650 MG Q6P PRN 04/21 0030 AC PO Albuterol Sulfate 3 ML Q4H PRN 04/21 1430 AC 04/22 INH 0421 Aspirin Buffered 81 MG DAILY 04/21 1000 AC 04/21 PO 1023 Atorvastatin Calcium 10 MG DAILY 04/21 1000 AC 04/21 PO 1023 Bisacodyl 10 MG DAILY NEEDED PRN 04/21 2030 AC PO Bisacodyl 10 MG DAILY 04/21 1000 DC 04/21 PO 1023 Ceftazidime 0 .STK-MED ONE 04/21 1329 DC .ROUTE Ceftazidime 1,000 MG Q12H 04/21 0200 AC 04/22 IV 0330 Diltiazem HCl 125 MG Q24H 04/21 0030 AC 04/22 Dextrose/Water 100 ML IV 0030 Guaifenesin 600 MG Q12 04/21 0208 AC 04/21 PO 2123 Heparin Sodium 0 .STK-MED ONE 04/21 1329 DC (Porcine) .ROUTE Heparin Sodium 0 .STK-MED ONE 04/21 0608 DC (Porcine) .ROUTE Heparin Sodium 5,000 UNIT Q8 04/21 0027 AC 04/22 (Porcine) SC 0452 Hydromorphone HCl 2 MG Q6P PRN 04/21 0300 AC PO Ibuprofen 600 MG Q6P PRN 04/21 0030 AC PO Levothyroxine Sodium 0.05 MG DAILY AC 04/21 0700 AC 04/21 PO 0613 Lorazepam 0.5 MG DAILY NEEDED 04/21 0300 AC 04/21 PO 04/28 0259 2321 Metoprolol Tartrate 50 MG BID 04/21 1000 AC 04/21 PO 2127 Sodium Chloride 1,000 ML .[id number] 04/21 0600 DC 04/21 IV 04/21 1919 0613 Vancomycin HCl 1,000 MG 0130 04/21 0130 AC 04/22 Dextrose/Water 250 ML IV 0230 Last 24 Hrs of Lab/Karel Results Last 24 Hrs of Labs/Mics: Laboratory Tests 04/21/16 0645: Anion Gap 11, Estimated GFR 60, BUN/Creatinine Ratio 17.8, Troponin I 0.02, CBC w Diff NO MAN DIFF REQ, RBC 2.60 L, MCV 92.3, MCH 31.1 H, RDW 15.7 H, MPV 7.6 , Gran % 61.5, Lymphocytes % 28.2, Monocytes % 9.3, Eosinophils % 0.5, Basophils % 0.5, Absolute Granulocytes 1.5, Absolute Lymphocytes 0.7 L, Absolute Monocytes 0.2, Absolute Eosinophils 0, Absolute Basophils 0, PUBS MCHC 33.7 Lines/Diet/Fluids Restraints: none Assessment/Plan Assessment: 85-year-old female with PMH of atrial fibrillation on metoprolol and not on anticoagulation due to falls and GI bleed, hypertension, hypothyroidism, admitted to telemetry for atrial fibrillation with rapid ventricular rate, and pneumonia. # Atrial fibrillation with rapid ventricular rate * metorpolol increased to 100. * Will d/c cardizem drip * Cardio consult appreciated. # Pneumonia, could be healthcare acquired pneumonia given recent hospitalization , and rehab * rapid flu negative * cough, SOB, fever * Negative acute PE, shows chronic PE * BC show one bottle of gram postive cocci in clusters,Follow BC X 2, UA, UC, urine legionella, urine strep pneumo, LRC * DC vancomycin and ceftazidime, switch to moxifloxacin * mucinex 600 q12 # Back pain: central canal narrowingL3-L4 * Given 2 mg IV morphine X 1 * Consider MRI if persists * Pain pathway with dilaudid for severe pain, motrin moderate, tylenol mild # Hypothyroid * Continue levothyroxine 50 mcg daily # Anxiety * Continue lorazepam 0.5 mg prn # Other home meds * Continue meclizine 25 tid prn * Continue aspirin 81 mg daily * Continue atorvastain 10 mg daily * Continue vit D 1000 IU daily Diet: heart healthy DVT ppx: mech and pharm FULL CODE Problem List: 1. ATRIAL FIBRILATION 2. Pneumonia 3. Atrial fibrillation with RVR Pain Ratin Pain Location: na Pain Goal: Remain pain free Pain Plan: tylenol Tomorrow's Labs & Rationales: tuan OROZCO MD,NORBERTO 04/22/16 1317: Attending MD Review Statement Attending Statement Attending MD Statement: examined this patient, discuss w/resident/PA/COMMISSIONED FIRE OFFICER, agreed w/resident/PA/COMMISSIONED FIRE OFFICER, reviewed EMR data (avail), discussed with nursing, discussed with case mgmt Attending Assessment/Plan: 85-year-old female past medical history of hypertension, A. fib not on anticoagulation secondary to bleeding, rheumatoid arthritis and history of pulmonary hypertension. She is here with a fever and suspected gram-negative and or MRSA pneumonia. We have her on Vanco and ceftaz for now. She failed levofloxacin as an outpatient but her CT chest is not that impressive. She is growing GPC in clusters in one set (?one bottle) of blood cultures. Will need ID to help us out with etiology of the fever, are we treating a staph pneumonia. In the setting of the fever she had rapid A. fib, appreciate cardiology evaluation and will transition her to a higher dose of beta erika and wean off the IV Cardizem.
--- NOTE | 2016-04-22 07:49 | NUR ---
APPROXIMATELY 0400 PT WAS C/O DIFFICULTY BREATHING. 02 88% ON 3L NC HR 112. SCATTERED RHONCI WITH AUDIBLE WHEEZING. PRODUCTIVE COUGH WITH THICK SPUTUM. 02 WAS INCREASED TO 4L MD WAS PAGED AND EXAMED THE PT AT BEDSIDE. RESPIRATORY WAS PAGED AND PT WAS GIVEN A BREATHING TX. O2 WAS NOW 100% ON 4L, PT STILL C/O MILD DIFFUCULTY BREATHING BUT NOTED IMPROVEMENT. WILL CONTINUE TO MONITOR.
[2016-04-22 08:15] VITALS: BP 148/84
[2016-04-22 08:46] LABS: ABSOLUTE BASOPHIL COUNT 0 /CUMM (0.0-0.2); ABSOLUTE EOSINOPHIL COUNT 0 /CUMM (0.0-0.7); ABSOLUTE GRANULOCYTE CT 2.6 /CUMM (1.4-6.5); ABSOLUTE MONOCYTE COUNT 0.4 /CUMM (0.10-0.60)
[2016-04-22 08:59] LABS: BASOPHIL % 0.5 % (0.0-2.0); EOSINOPHIL % 0.5 % (0-5); GRANULOCYTE % 64.9 % (42.2-75.2); HEMATOCRIT 28.1 % (37-47); MEAN CORPUSCULAR HGB 30.8 PG (27.0-31.0); MEAN CORPUSCULAR HGB CONC 33.5 G/DL (33.0-37.0); MEAN CORPUSCULAR VOLUME 92.1 FL (81.0-99.0); MEAN PLATELET VOLUME 7.9 FL (7.4-10.4); PLATELET COUNT 187 /CUMM (130-400); RBC DISTRIBUTION WIDTH 15.3 % (11.5-14.5); RED BLOOD CELL CT 3.06 /CUMM (4.20-5.40)
--- NOTE | 2016-04-22 13:15 | Cons- Cardiology ---
General Information and HPI Consulting Request Date of Consult: 04/22/16 Requested By: NORBERTO OROZCO MD Reason for Consult: Atrial fibrillation History of Present Illness: The patient is an 85-year-old female with history of chronic atrial fibrillation and CVA who is not on anticoagulation because of GI bleed. She was recently admitted in March after a mechanical fall. Due to the emergency department on April 20 with complaint of productive cough and shortness of breath for the past few days. She was noted to have any recent fever. In the emergency department she was noted to be in atrial fibrillation with rapid ventricular rate. Low-dose Cardizem drip was started, and the ventricular rate is now under control. IV antibiotic therapy has been initiated for pneumonia. No chest pain. She notes occasional palpitations. No diaphoresis. No lightheadedness or dizziness. No nausea or vomiting. Allergies/Medications Allergies: Coded Allergies: Sulfa (Sulfonamide Antibiotics) (HIVES 11/13/15) cyclobenzaprine (Severe, LIGHTHEADED 11/13/15) nitrofurantoin (Severe, SWEATING, DIZZY, RED ALL OVER, SHAKING 11/13/15) codeine (GI 11/13/15) mushroom (DIZZY 11/13/15) Home Med List: Aspirin (Aysha Aspirin Regimen) 81 MG ECT 2 TAB PO DAILY HEART (Reported) Atorvastatin Calcium (Lipitor) 10 MG TAB 1 TAB PO DAILY CHOLESTEROL (Reported ) Bisacodyl (Dulcolax) 5 MG TABLET.DR 2 TAB PO DAILY GI (Reported) Cholecalciferol (Vitamin D3) 1,000 IU TAB 1 TAB PO DAILY SUPPLEMENT Hydromorphone HCl 4 MG TABLET 1 TAB PO TID PRN PAIN (Reported) Hydromorphone HCl 2 MG TABLET 1 TAB PO QHS PRN PAIN (Reported) Levofloxacin 500 MG TABLET 1 TAB PO DAILY ANTIBIOTIC (Reported) Levothyroxine Sodium 50 MCG TABLET 1 TAB PO DAILY THYROID (Reported) Lorazepam 0.5 MG TABLET 1 TAB PO DAILY NEEDED ANXIETY (Reported) Meclizine HCl 25 MG TABLET 1 TAB PO TIDPRN DIZZY (Reported) Metoprolol Tartrate (Unknown Strength) TABLET 50 MG PO BID HEART/BP (Reported ) Current Medications: Current Medications Sig/Yessenia Start time Last Medication Dose Route Stop Time Status Admin Acetaminophen 650 MG Q6P PRN 04/21 0030 AC 04/22 PO 0950 Albuterol Sulfate 3 ML Q4H PRN 04/21 1430 AC 04/22 INH 1117 Aspirin Buffered 81 MG DAILY 04/21 1000 AC 04/22 PO 1203 Atorvastatin Calcium 10 MG DAILY 04/21 1000 AC 04/22 PO 1203 Bisacodyl 10 MG DAILY NEEDED PRN 04/21 2030 AC PO Bisacodyl 10 MG DAILY 04/21 1000 DC 04/21 PO 1023 Ceftazidime 0 .STK-MED ONE 04/21 1329 DC .ROUTE Ceftazidime 1,000 MG Q12H 04/21 0200 AC 04/22 IV 0330 Diltiazem HCl 125 MG Q24H 04/21 0030 AC 04/22 Dextrose/Water 100 ML IV 0030 Guaifenesin 600 MG Q12 04/21 0208 AC 04/22 PO 1158 Heparin Sodium 0 .STK-MED ONE 04/21 1329 DC (Porcine) .ROUTE Heparin Sodium 5,000 UNIT Q8 04/21 0027 AC 04/22 (Porcine) SC 0452 Hydromorphone HCl 2 MG Q6P PRN 04/21 0300 AC PO Ibuprofen 600 MG Q6P PRN 04/21 0030 AC PO Levothyroxine Sodium 0.05 MG DAILY AC 04/21 0700 AC 04/22 PO 0839 Lorazepam 0.5 MG DAILY NEEDED 04/21 0300 AC 04/21 PO 04/28 0259 2321 Metoprolol Tartrate 50 MG BID 04/21 1000 AC 04/22 PO 1206 Sodium Chloride 1,000 ML .[id number] 04/21 0600 DC 04/21 IV 04/21 1919 0613 Vancomycin HCl 1,000 MG 0130 04/21 0130 AC 04/22 Dextrose/Water 250 ML IV 0230 Review of Systems Review of Systems: No rash. No tremor. No melena. No diaphoresis. No syncope. All other systems were reviewed, and were noted to be negative. 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 Home Who Do You Live With? self Services at Home: Home Health Aide Smoking Status: Never Smoked ETOH Use: denies use Illicit Drug Use: denies illicit drug use Functional Ability ADLs Independent: dressing, eating, toileting. Needs Assist: bathing. Ambulation: walker IADLs Independent: telephone, medication admin. Needs Assist: shopping, housework, finances, food prep, transportation. ECHO Results (as available) Report: CONCLUSIONS 1. This was a technically difficult examination due to the patient's body habitus. 2. Mild to moderate aortic sclerosis is present in a tricuspid aortic valve with no significant valvular stenosis but with minimal aortic insufficiency present. On the parasternal images, the possibility of leaflet prolapse cannot be excluded. Minimal dilatation of the ascending aorta is noted. 3. Thickening of the mitral leaflets is present. Eccentric, posterolaterally directed mitral insufficiency is present which is at least moderate in severity with mild left atrial dilatation. 4. There is no significant pericardial fluid present. A small anterior echo free space is noted. 5. The left ventricular chamber size is normal with mild to moderate concentric hypertrophy. There appears to be mild localized posterobasal hypokinesia present. The ejection fraction is greater than 55%. 6. The right heart structures were not optimally visualized. The right heart chambers appear to be upper normal in size. Mild to moderate tricuspid and pulmonic insufficiency are present with pulmonary hypertension and an estimated RV systolic pressure of 58 mmHg. 7. The descending thoracic aorta is prominent but was not optimally visualized. 8. If clinically indicated, a GALLO would be useful to better assess the anatomy and function of the aortic and mitral valves. Specifically, to better assess the severity of mitral insufficiency and to rule out the presence of aortic valve prolapse. Di Davila M.D. Exam & Diagnostic Data Vital Signs and I&O Vital Signs Date Time Temp Pulse Resp B/P Pulse O2 O2 Flow FiO2 Ox Delivery Rate 04/22 1206 93 118/78 04/22 1118 95 Nasal 3.0L Cannula 04/22 0815 98.9 98 20 148/84 93 Nasal 4.0L Cannula 04/22 0800 Nasal 4.0L Cannula 04/22 0424 92 Nasal 4.0L Cannula 04/22 0000 Nasal 3.0L Cannula 01/15 2257 99.6 95 20 130/72 96 Nasal 3.0L Cannula 04/217 112 130/70 04/21 2100 93 Nasal 3.0L Cannula 04/21 1700 94 Nasal 3.0L Cannula 04/21 1654 98.3 90 18 120/82 91 Nasal 3.0L Cannula 04/21 1554 98.5 88 16 130/67 98 Nasal 3.0L Cannula Intake & Output 04/22 0800 04/22 0000 04/21 1600 04/21 0800 04/21 0000 Intake Total 250 337 700 595 556 7680 Output Total 500 400 550 500 Balance 250 -163 300 -40 10 1000 Intake, IV 10 287 300 012 871 4466 Intake, Oral 240 50 400 200 120 Number 1 1 3 Bowel Movements Output, Urine 500 400 550 500 Patient 130 lb 130 lb Weight Physical Exam: Gen: The patient is in no acute distress HEENT: Normal nose, ears, and oropharynx. Pupils equal bilaterally. Conjunctiva normal. Neck: Supple with no JVD, no masses, and no thyromegaly Lungs: Bilateral rhonchi with normal respiratory effort Heart: Irregularly irregular S1, S2, 1/6 systolic murmur. 1+ peripheral edema, 1+ pulses in the lower extremities bilaterally Abdomen: Soft, nontender, no masses. No hepatomegaly. No splenomegaly Extremities: No clubbing or cyanosis. Normal muscle strength in the upper and lower extremities Skin: Normal skin turgor with no skin ulcers or lesions noted. Neuro: Cranial nerves intact. Sensation intact Psych: Alert and oriented 3 with appropriate affect Labs/Karel Results: Laboratory Tests 04/22 04/21 0625 0645 Chemistry Sodium (137 - 145 mmol/L) 135 L 136 L Potassium (3.5 - 5.1 mmol/L) 4.1 3.9 Chloride (98 - 107 mmol/L) 102 98 Carbon Dioxide (22 - 30 mmol/L) 22 27 Anion Gap (5 - 16) 11 11 BUN (7 - 17 mg/dL) 16 16 Creatinine (0.5 - 1.0 mg/dL) 0.9 0.9 Estimated GFR (>60 ml/min) 60 60 BUN/Creatinine Ratio (7 - 25 %) 17.8 17.8 Troponin I (< 0.11 ng/ml) 0.02 Hematology CBC w Diff NO MAN DIFF REQ NO MAN DIFF REQ WBC (4.8 - 10.8 /CUMM) 4.0 L 2.4 L RBC (4.20 - 5.40 /CUMM) 3.06 L 2.60 L Hgb (12.0 - 16.0 G/DL) 9.4 L 8.1 L Hct (37 - 47 %) 28.1 L 24.0 L MCV (81.0 - 99.0 FL) 92.1 92.3 MCH (27.0 - 31.0 PG) 30.8 31.1 H RDW (11.5 - 14.5 %) 15.3 H 15.7 H Plt Count (130 - 400 /CUMM) 187 174 MPV (7.4 - 10.4 FL) 7.9 7.6 Gran % (42.2 - 75.2 %) 64.9 61.5 Lymphocytes % (20.5 - 51.1 %) 24.4 28.2 Monocytes % (1.7 - 9.3 %) 9.7 H 9.3 Eosinophils % (0 - 5 %) 0.5 0.5 Basophils % (0.0 - 2.0 %) 0.5 0.5 Absolute Granulocytes (1.4 - 6.5 /CUMM) 2.6 1.5 Absolute Lymphocytes (1.2 - 3.4 /CUMM) 1.0 L 0.7 L Absolute Monocytes (0.10 - 0.60 /CUMM) 0.4 0.2 Absolute Eosinophils (0.0 - 0.7 /CUMM) 0 0 Absolute Basophils (0.0 - 0.2 /CUMM) 0 0 PUBS MCHC (33.0 - 37.0 G/DL) 33.5 33.7 04/21 04/20 04/20 0117 2341 2310 Chemistry Lactic Acid Cancelled Serology Virus Culture Pending Urines Urine Color (YEL,AMB,STR) YEL Urine Clarity (CLEAR) HAZY H Urine pH (5.0 - 8.0) 6.0 Ur Specific [place] (1.001 - 1.035) 1.015 Urine Protein (NEG,<30 MG/DL) 30 H Urine Ketones (NEG) TRACE H Urine Nitrite (NEG) NEG Urine Bilirubin (NEG) NEG Urine Urobilinogen (0.1 - 1.0 EU/dl) 0.2 Ur Leukocyte Esterase (NEG) NEG Ur Microscopic SEDIMENT EXAMINED Urine RBC (0 - 5 /HPF) 3-5 Urine WBC (0 - 2 /HPF) 1-3 H Ur Epithelial Cells (NONE,FEW) FEW Urine Mucus (FEW,NONE) RARE Urine Hemoglobin (NEG) TRACE-INTACT Urine Glucose (N MG/DL) NEG 04/20 Chemistry Sodium (137 - 145 mmol/L) 135 L Potassium (3.5 - 5.1 mmol/L) 4.4 Chloride (98 - 107 mmol/L) 96 L Carbon Dioxide (22 - 30 mmol/L) 27 Anion Gap (5 - 16) 13 BUN (7 - 17 mg/dL) 19 H Creatinine (0.5 - 1.0 mg/dL) 0.9 Estimated GFR (>60 ml/min) 60 BUN/Creatinine Ratio (7 - 25 %) 21.1 Glucose (65 - 99 mg/dL) 99 Lactic Acid (0.7 - 2.1 mmol/L) 1.5 Calcium (8.4 - 10.2 mg/dL) 8.8 Phosphorus (2.5 - 4.5 mg/dL) 3.6 Magnesium (1.6 - 2.3 mg/dL) 1.8 Total Bilirubin (0.2 - 1.3 mg/dL) 1.4 H Direct Bilirubin (< 0.4 mg/dL) 0.6 H AST (14 - 36 U/L) 27 ALT (9 - 52 U/L) 23 Alkaline Phosphatase (<127 U/L) 59 Troponin I (< 0.11 ng/ml) 0.02 Total Protein (6.3 - 8.2 g/dL) 6.7 Albumin (3.5 - 5.0 g/dL) 3.8 Globulin (1.9 - 4.2 gm/dL) 2.9 Albumin/Globulin Ratio (1.1 - 2.2 %) 1.3 TSH (0.270 - 4.200 uIU/mL) 1.370 Free T4 (0.85 - 1.93 ng/dL) 0.99 Coagulation PT (9.4 - 12.5 SEC) 13.2 H INR (0.90 - 1.19) 1.26 H APTT (25 - 37 SEC) 31 D-Dimer (70 - 232 ng/ml) 903 H Hematology CBC w Diff NO MAN DIFF REQ WBC (4.8 - 10.8 /CUMM) 4.0 L RBC (4.20 - 5.40 /CUMM) 3.27 L Hgb (12.0 - 16.0 G/DL) 10.1 L Hct (37 - 47 %) 30.1 L MCV (81.0 - 99.0 FL) 92.2 MCH (27.0 - 31.0 PG) 30.9 RDW (11.5 - 14.5 %) 15.6 H Plt Count (130 - 400 /CUMM) 230 MPV (7.4 - 10.4 FL) 7.8 Gran % (42.2 - 75.2 %) 78.7 H Lymphocytes % (20.5 - 51.1 %) 13.6 L Monocytes % (1.7 - 9.3 %) 6.8 Eosinophils % (0 - 5 %) 0.2 Basophils % (0.0 - 2.0 %) 0.7 Absolute Granulocytes (1.4 - 6.5 /CUMM) 3.2 Absolute Lymphocytes (1.2 - 3.4 /CUMM) 0.6 L Absolute Monocytes (0.10 - 0.60 /CUMM) 0.3 Absolute Eosinophils (0.0 - 0.7 /CUMM) 0 Absolute Basophils (0.0 - 0.2 /CUMM) 0 PUBS MCHC (33.0 - 37.0 G/DL) 33.5 Diagnostic Data EKG Results EKG tracings are independently reviewed. EKG from 04/20/16 revealed atrial fibrillation with ventricular response of 156 and repolarization abnormality. EKG from 04/21/16 reveals atrial fibrillation with ventricular response of 95, borderline T-wave abnormality CXR Results Persistent left basilar opacification likely representing pleural effusion and adjacent basilar atelectasis/consolidation. No overt pulmonary edema. Other Results CTA chest: 1. No acute pulmonary embolus identified. 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 Dilated main pulmonary artery, suspicious for pulmonary hypertension. 2. Partial opacification of the bilateral lower lobes, which may reflect atelectasis and/or consolidation. 3. Trace pleural effusions. Assessment/Plan Assessment/Plan The patient is an 85-year-old female with history of chronic atrial fibrillation , not antiplatelet because of GI bleed, remote history of CVA who presents with cough and shortness of breath. She is admitted for pneumonia. Ventilatory rate was rapid on presentation, and is now under control on low dose diltiazem drip. Myocardial infarction has been ruled out with negative troponin 2. Recommendations: * Increase metoprolol to 100 mg po twice a day for rate control, and then discontinue diltiazem. * Continue to monitor on telemetry. * Continue aspirin. Consult Acknowledgment - Thank you for your consult request.
--- NOTE | 2016-04-22 13:50 | NUR ---
PHYSICAL THERAPY PT REFUSED ANY PT OR OOB TODAY
--- NOTE | 2016-04-22 14:51 | NUR ---
PHYSICAL THERAPY: Attempted to see patient this P.M. Patient con't to refuse physical therapy today stating "I have been coughing all day and I am very tired, not today, I hope I feel better tomorrow." Patient educated on the benefits of mobility and sitting in chair for respiratory health; Pt con't to politely refuse. Will f/u as appropriate tomorrow.
[2016-04-22 15:18] VITALS: BP 140/84
--- NOTE | 2016-04-22 15:22 | Cons- Infect Disease ---
General Information and HPI Consulting Request Date of Consult: 04/22/16 Requested By: NORBERTO OROZCO MD Reason for Consult: Rule out pneumonia Source of Information: patient, old records History of Present Illness: This is an 85-year-old woman with a history of atrial fibrillation, not maintained on anticoagulation because of a previous GI bleed, last hospitalized 6 weeks prior to admission after a fall and found to be in rapid atrial fibrillation, treated at that time with several days of Azithromycin for possible pneumonia, discharged to a rehabilitation facility and, ultimately, home, several weeks prior to admission, admitted on April 20 with several days of lethargy, cough, productive of yellow sputum, shortness of breath, anorexia and generalized weakness despite one dose of Levaquin given on the day prior to admission. On admission she was febrile to 101.1, with an O2 sat of 93% on room air. Laboratory data revealed a white blood cell count of 4000, BUN/creatinine 19 and 0.9, bilirubin 1.4, INR 1.26. Urinalysis 3-5 RBC/1-3 WBCs. Chest x-ray revealed persistent left basilar opacification. CT of the head was negative for any acute process. CT of the lumbar spine was negative for any acute process. CTA of the chest revealed partial opacification of both lower lobes, with mild patchy subpleural opacity in the posterior right upper lobe. She was begun on Vancomycin and Ceftazidime with rapid defervescence and she has remained afebrile. Her white blood cell count has remained low normal, with a drop to 2.4 yesterday. She does report diarrhea, with soft stools reported, but has no abdominal complaints. She continues to report a cough, which is dry, with mild shortness of breath but denies any chest pain. She has no urinary symptoms. Allergies/Medications Allergies: Coded Allergies: Sulfa (Sulfonamide Antibiotics) (HIVES 11/13/15) cyclobenzaprine (Severe, LIGHTHEADED 11/13/15) nitrofurantoin (Severe, SWEATING, DIZZY, RED ALL OVER, SHAKING 11/13/15) codeine (GI 11/13/15) mushroom (DIZZY 11/13/15) Home Med List: Aspirin (Aysha Aspirin Regimen) 81 MG ECT 2 TAB PO DAILY HEART (Reported) Atorvastatin Calcium (Lipitor) 10 MG TAB 1 TAB PO DAILY CHOLESTEROL (Reported ) Bisacodyl (Dulcolax) 5 MG TABLET.DR 2 TAB PO DAILY GI (Reported) Cholecalciferol (Vitamin D3) 1,000 IU TAB 1 TAB PO DAILY SUPPLEMENT Hydromorphone HCl 4 MG TABLET 1 TAB PO TID PRN PAIN (Reported) Hydromorphone HCl 2 MG TABLET 1 TAB PO QHS PRN PAIN (Reported) Levofloxacin 500 MG TABLET 1 TAB PO DAILY ANTIBIOTIC (Reported) Levothyroxine Sodium 50 MCG TABLET 1 TAB PO DAILY THYROID (Reported) Lorazepam 0.5 MG TABLET 1 TAB PO DAILY NEEDED ANXIETY (Reported) Meclizine HCl 25 MG TABLET 1 TAB PO TIDPRN DIZZY (Reported) Metoprolol Tartrate (Unknown Strength) TABLET 50 MG PO BID HEART/BP (Reported ) Past History Travel History Traveled to [place] past 21 day No Medical History Neurological: NONE (left-sided), CVA EENT: benign positional vertigo Cardiovascular: AFIB, hypertension Respiratory: NONE Gastrointestinal: GERD Hepatic: NONE Renal: NONE Musculoskeletal: osteoarthritis, osteoporosis, rheumatoid arthritis, L SCAPULA FX, status post vertebroplasty Psychiatric: anxiety Endocrine: hypothyroidism Blood Disorders: DEHYDRATION Cancer(s): NONE 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 Home Who Do You Live With? self Services at Home: Home Health Aide Smoking Status: Never Smoked ETOH Use: denies use Illicit Drug Use: denies illicit drug use Functional Ability ADLs Independent: dressing, eating, toileting. Needs Assist: bathing. Ambulation: walker IADLs Independent: telephone, medication admin. Needs Assist: shopping, housework, finances, food prep, transportation. Review of Systems Review of Systems Constitutional: Denies: chills. Genitourinary: Reports: no symptoms. All Other Systems: Reviewed and Negative Exam & Diagnostic Data Last 24 Hrs of Vital Signs/I&O Vital Signs Date Time Temp Pulse Resp B/P Pulse O2 O2 Flow FiO2 Ox Delivery Rate 04/22 1206 93 118/78 04/22 1118 95 Nasal 3.0L Cannula 04/22 0815 98.9 98 20 148/84 93 Nasal 4.0L Cannula 04/22 0800 Nasal 4.0L Cannula 04/22 0424 92 Nasal 4.0L Cannula 04/22 0000 Nasal 3.0L Cannula 04/21 2257 99.6 95 20 130/72 96 Nasal 3.0L Cannula 04/21 2127 112 130/70 04/21 2100 93 Nasal 3.0L Cannula 04/21 1700 94 Nasal 3.0L Cannula 04/21 1654 98.3 90 18 120/82 91 Nasal 3.0L Cannula 04/21 1554 98.5 88 16 130/67 98 Nasal 3.0L Cannula Intake & Output 04/22 1600 04/22 0800 04/22 0000 Intake Total 250 337 700 Output Total 500 400 Balance 250 -163 300 Intake, IV 10 287 300 Intake, Oral 240 50 400 Number 1 1 3 Bowel Movements Output, Urine 500 400 Patient 130 lb Weight Physical Exam Other Physical Findings: She is awake and alert, frail-appearing, but in no acute distress. She is afebrile. Skin reveals no rash. HEENT exam is negative. Neck is supple with no adenopathy. Lungs bilateral rhonchi with scattered crackles. Heart irregular rhythm with a 1/6 systolic ejection murmur. Abdomen is soft, nontender with positive bowel sounds. Back no CVA tenderness. Extremities no cyanosis, clubbing or edema. Neuro is without focality. Last 24 Hours of Lab Results: Laboratory Tests 04/22 0625 Chemistry Sodium (137 - 145 mmol/L) 135 L Potassium (3.5 - 5.1 mmol/L) 4.1 Chloride (98 - 107 mmol/L) 102 Carbon Dioxide (22 - 30 mmol/L) 22 Anion Gap (5 - 16) 11 BUN (7 - 17 mg/dL) 16 Creatinine (0.5 - 1.0 mg/dL) 0.9 Estimated GFR (>60 ml/min) 60 BUN/Creatinine Ratio (7 - 25 %) 17.8 Hematology CBC w Diff NO MAN DIFF REQ WBC (4.8 - 10.8 /CUMM) 4.0 L RBC (4.20 - 5.40 /CUMM) 3.06 L Hgb (12.0 - 16.0 G/DL) 9.4 L Hct (37 - 47 %) 28.1 L MCV (81.0 - 99.0 FL) 92.1 MCH (27.0 - 31.0 PG) 30.8 RDW (11.5 - 14.5 %) 15.3 H Plt Count (130 - 400 /CUMM) 187 MPV (7.4 - 10.4 FL) 7.9 Gran % (42.2 - 75.2 %) 64.9 Lymphocytes % (20.5 - 51.1 %) 24.4 Monocytes % (1.7 - 9.3 %) 9.7 H Eosinophils % (0 - 5 %) 0.5 Basophils % (0.0 - 2.0 %) 0.5 Absolute Granulocytes (1.4 - 6.5 /CUMM) 2.6 Absolute Lymphocytes (1.2 - 3.4 /CUMM) 1.0 L Absolute Monocytes (0.10 - 0.60 /CUMM) 0.4 Absolute Eosinophils (0.0 - 0.7 /CUMM) 0 Absolute Basophils (0.0 - 0.2 /CUMM) 0 PUBS MCHC (33.0 - 37.0 G/DL) 33.5 Last 24 Hours of Karel Results: Blood cultures April 20 one bottle positive for gram-positive cocci in clusters Rapid flu swab April 20 negative Urine strep pneumo antigen and Legionella antigen April 21 negative Diagnostic Data Recent Imaging Findings: Chest x-ray, personally reviewed, reveals a persistent left basilar opacification. CT of the head negative for any acute process. CT of the lumbar spine negative for any acute process. CTA of the chest revealed partial opacification of both lower lobes, with mild patchy subpleural opacity in the posterior right upper lobe; suggestion of a segmental right lower lobe pulmonary arterial web, possibly a sequela of chronic embolus Assessment/Plan Assessment/Plan Impression: This is an 85-year-old woman with atrial fibrillation, not maintained on anticoagulation, admitted on April 20 with several days of a cough, shortness of breath, lethargy and weakness, found to be febrile with a low white blood cell count, bibasilar densities on chest x-ray and CT scan, not significantly changed from her previous chest x-ray, now with mild hypoxia. It does not appear that she has pneumonia, with the CT scan revealing what appears to be chronic bibasilar densities, perhaps more suggestive of atelectasis, but her hypoxia is of some concern. She may have a viral illness, such as influenza, though this should not cause hypoxia; therefore bronchitis might be considered and, given her age and frailty, it may be reasonable to treat this with antibiotics. She does report diarrhea, which could suggest a viral illness or, possibly C. difficile, given her recent antibiotics on her previous admission. Her positive blood culture likely represents a contaminant. Suggestion: 1. Attempt to obtain a sputum culture if possible 2. Stool for C. difficile if persistent diarrhea 3. Follow-up results of recent positive blood culture 4. Discontinue Vancomycin and Ceftazidime 5. Begin Moxifloxacin 400 mg po every 24 hours Consult Acknowledgment - Thank you for your consult request.
[2016-04-22 23:01] VITALS: BP 140/92
[2016-04-23 06:54] LABS: ABSOLUTE BASOPHIL COUNT 0 /CUMM (0.0-0.2); ABSOLUTE EOSINOPHIL COUNT 0 /CUMM (0.0-0.7); ABSOLUTE GRANULOCYTE CT 2.3 /CUMM (1.4-6.5); ABSOLUTE LYMPH COUNT 0.9 /CUMM (1.2-3.4); ABSOLUTE MONOCYTE COUNT 0.5 /CUMM (0.10-0.60); BASOPHIL % 0.5 % (0.0-2.0); EOSINOPHIL % 0.9 % (0-5); GRANULOCYTE % 61.6 % (42.2-75.2); HEMATOCRIT 28.4 % (37-47); MEAN CORPUSCULAR HGB 30.9 PG (27.0-31.0); MEAN CORPUSCULAR HGB CONC 33.8 G/DL (33.0-37.0); MEAN CORPUSCULAR VOLUME 91.5 FL (81.0-99.0); MEAN PLATELET VOLUME 7.5 FL (7.4-10.4); PLATELET COUNT 199 /CUMM (130-400); RBC DISTRIBUTION WIDTH 15.5 % (11.5-14.5); WHITE BLOOD CELL COUNT 3.8 /CUMM (4.8-10.8)
--- NOTE | 2016-04-23 07:34 | PN- Housestaff ---
See Addendum Subjective Follow-up For: 1? acute bronchitis v/s influenza causing hypoxia 2.chronic A fib not on AC with rate control increased. 3.Chronic pulmonary emboli ? pulmonary hypertension Complaints: no complaints Tele-Events Since Last Visit: atrial fibriallation Subjective: I have seen and examined the patient today morning, she seems to be doing okay, metoprolol was increased, is not offering any new complaint today morning, she is lying on the bed comfortable, we will continue the by mouth moxifloxacin, continue to watch her saturations. Review of Systems Constitutional: Reports: see HPI. EENTM: Denies: blurred vision, double vision, visual changes, eye pain. Cardiovascular: Denies: chest pain, edema, orthopena, palpitations. Respiratory: Reports: cough, short of breath. Denies: hemoptysis, orthopnea. Gastrointestinal: Denies: abdominal pain, bloating, constipation, diarrhea. Genitourinary: Denies: discharge, dysuria, frequency, hematuria. Musculoskeletal: Reports: no symptoms. Skin: Reports: no symptoms. Objective Last 24 Hrs of Vital Signs/I&O Vital Signs Date Time Temp Pulse Resp B/P Pulse O2 O2 Flow FiO2 Ox Delivery Rate 04/23 0820 97.9 112 18 155/96 94 Nasal 2.0L Cannula 04/23 0000 94 Nasal 2.0L Cannula 04/22 2317 102 148/80 04/22 2301 98.3 96 18 140/92 96 Nasal 2.0L Cannula 04/22 2100 98 Nasal 3.0L Cannula 04/22 1650 86 140/84 04/22 1600 Nasal 3.0L Cannula 04/22 1518 98.2 86 20 140/84 95 Nasal 3.0L Cannula 04/22 1206 93 118/78 04/22 1118 95 Nasal 3.0L Cannula Intake & Output 04/23 1600 04/23 0800 04/23 0000 Intake Total 240 400 Output Total 325 375 Balance -85 25 Intake, Oral 240 400 Number 2 Bowel Movements Output, Urine 325 375 Physical Exam General Appearance: Alert, Oriented X3, Cooperative, No Acute Distress Other Physical Findings: She is alert oriented to time place and person, continues to be in afebrile, she is not in any acute distress, skin clear. Neck is supple. No lymphadenopathy.Heart irregularly irregular rhythm, S1 and S2 present. Lungs bilateral rhonchi present however reduced compared to yesterday. Abdomen is soft nontender, bowel sounds present.Extremities show no edema cyanosis, pulses present in bilateral lower extremity. Current Medications: Current Medications Sig/Yessenia Start time Last Medication Dose Route Stop Time Status Admin Acetaminophen 650 MG .STK-MED ONE 04/22 0947 DC PO 04/22 0948 Acetaminophen 650 MG Q6P PRN 04/21 0030 AC 04/22 PO 0950 Albuterol Sulfate 3 ML Q4H PRN 04/21 1430 AC 04/22 INH 1117 Aspirin Buffered 81 MG DAILY 04/21 1000 AC 04/22 PO 1203 Atorvastatin Calcium 10 MG DAILY 04/21 1000 AC 04/22 PO 1203 Bisacodyl 10 MG DAILY NEEDED PRN 04/21 2030 AC PO Ceftazidime 1,000 MG Q12H 04/21 0200 DC 04/22 IV 1459 Diltiazem HCl 125 MG Q24H 04/21 0030 DC 04/22 Dextrose/Water 100 ML IV 0030 Guaifenesin 600 MG Q12 04/21 0208 AC 04/22 PO 2317 Heparin Sodium 5,000 UNIT Q8 04/21 0027 AC 04/23 (Porcine) SC 0610 Hydromorphone HCl 2 MG Q6P PRN 04/21 0300 AC PO Ibuprofen 600 MG Q6P PRN 04/21 0030 AC PO Levothyroxine Sodium 0.05 MG DAILY AC 04/21 0700 AC 04/23 PO 0823 Lorazepam 0.5 MG DAILY NEEDED 04/21 0300 AC 04/22 PO 04/28 0259 2317 Metoprolol Tartrate 100 MG BID 04/22 2200 AC 04/22 PO 2317 Metoprolol Tartrate 50 MG ONCE ONE 04/22 1330 DC 04/22 PO 04/22 1331 1650 Metoprolol Tartrate 50 MG BID 04/21 1000 DC 04/22 PO 1206 Moxifloxacin HCl 400 MG DAILY 04/22 1529 AC 04/22 PO 1649 Potassium Chloride 20 MEQ ONCE ONE 04/23 0745 DC PO 04/23 0746 Vancomycin HCl 1,000 MG 0130 04/21 0130 DC 04/22 Dextrose/Water 250 ML IV 0230 Last 24 Hrs of Lab/Karel Results Last 24 Hrs of Labs/Mics: Laboratory Tests 01/17/17 0623: Anion Gap 10, Estimated GFR > 60, BUN/Creatinine Ratio 18.8, CBC w Diff NO MAN DIFF REQ, RBC 3.10 L, MCV 91.5, MCH 30.9, RDW 15.5 H, MPV 7.5, Gran % 61.6, Lymphocytes % 24.8, Monocytes % 12.2 H, Eosinophils % 0.9, Basophils % 0.5, Absolute Granulocytes 2.3, Absolute Lymphocytes 0.9 L, Absolute Monocytes 0.5, Absolute Eosinophils 0, Absolute Basophils 0, PUBS MCHC 33.8 Microbiology 04/22 1528 STOOL: Clostridium difficile Toxin A & B - COLB 04/22 1527 LOWER RESP: Respiratory Culture - COLB 04/22 1527 LOWER RESP: Gram Stain - COLB Lines/Diet/Fluids Restraints: none Assessment/Plan Assessment: 85-year-old female with PMH of atrial fibrillation on metoprolol and not on anticoagulation due to falls and GI bleed, hypertension, hypothyroidism, admitted to telemetry for atrial fibrillation with rapid ventricular rate not on AC , metoprolol doasge now icnreased, and suspected pnuemonia v/s bronchitis v/s ? influenza presnetinf with opyxgen desturation on presentation, now on PO AX # Atrial fibrillation with rapid ventricular rate * Rate well controlled. * Not on AC * metorpolol increased to 100, continue same * Will touch base with cardiology for recs on home doasge of metoprolol on discharge. * Cardizem drip discontinued. # Pneumonia, could be healthcare acquired pneumonia given recent hospitalization , and rehab * rapid flu negative * cough, SOB, fever * Negative acute PE, shows chronic PE * BC show one bottle of gram postive cocci in clusters,contineu to follow cultrues. * urine legionella, urine strep pneumo negative * vancomycin and ceftazidime given on admission was d/cd,she was continued on moxifloxacin, now day 2 today. * Ct mucinex 600 q12 # Back pain: central canal narrowingL3-L4 * Given 2 mg IV morphine X 1 * Consider MRI if persists * Pain pathway with dilaudid for severe pain, motrin moderate, tylenol mild # Hypothyroid * Continue levothyroxine 50 mcg daily # Anxiety * Continue lorazepam 0.5 mg prn # Other home meds * Continue meclizine 25 tid prn * Continue aspirin 81 mg daily * Continue atorvastain 10 mg daily * Continue vit D 1000 IU daily Diet: heart healthy DVT ppx: mech and pharm FULL CODE Problem List: 1. Atrial fibrillation with RVR 2. Hypoxia 3. Acute bronchitis Pain Ratin Pain Location: back Pain Goal: Remain pain free Pain Plan: tylenol , ibuprofin, dilaudid Tomorrow's Labs & Rationales: doesnot need DVT/Prophylaxis: pharmacological
[2016-04-23] MEDS ORDERED: METOPROLOL TART50 M1 PO (07:46)
[2016-04-23 08:20] VITALS: BP 155/96
--- NOTE | 2016-04-23 10:07 | ECHOCARDIOGRAM REPORT ---
ARMAAN REED Age: 85 : 1930 Gender: F Exam Date: 04/22/2016 20:14 Exam Location: [place] Ht (in): 62 Wt (lb): 130 BSA: 1.62 BP: 118 / 78 Ordering Physician: TOMMY JEAN MD Referring Physician: Di Davila MD Technologist: Shreya Menjivar [facility] Room Number: 185-01 Indications: AFIB/FLUTTER Rhythm: Atrial fibrillation Technical Quality: Fair, Technically difficult study FINDINGS Left Ventricle Normal size left ventricle. Left ventricular wall thickness mildly increased. Normal left ventricular ejection fraction estimated at 60-65%. Right Ventricle Right ventricle not well visualized, grossly normal. Right Atrium Right atrial dilatation. Left Atrium Moderate to severe left atrial dilatation. Mitral Valve Mitral valve thickened. Posteriorly directed mitral regurgitation jet. Moderate mitral regurgitation. Aortic Valve Trileaflet aortic valve. Diffuse thickening (sclerosis) of the aortic valve cusps without reduced excursion. No aortic stenosis. Mild aortic regurgitation. Tricuspid Valve Tricuspid valve not well visualized, grossly normal. Moderate tricuspid regurgitation. Right ventricular systolic pressure estimated at 42 mmHg. Pulmonic Valve Pulmonic valve not well visualized, grossly normal. Pericardium No pericardial effusion. Right and left pleural effusion. Great Vessels Aortic root and proximal ascending aorta not well visualized, grossly normal. CONCLUSIONS 1. This was a technically difficult examination 2. Moderate aortic sclerosis is present with mild aortic insufficiency. 3. Moderate thickening of the mitral leaflets is present with eccentric mitral insufficiency that is at least moderate in severity. Moderate to severe left atrial enlargement is present. 4. THere is no significant pericardial fluid present. 5. BIlateral pleural effusions are present (greater on the left side). 6. The left ventricular chamber size is normal with mild concentric hypertrophy and a normal ejection fraction with no visible resting wall motion abnormalities. 7. The right heart structures are grossly normal with moderate tricuspid insufficiency, mild right atrial enlargement and an estimated RV systolic pressure of 42 mmHg. Di Davila M.D. (Electronically Signed) Final Date: 23 April 2016 10:06 MEASUREMENTS (Male / Female) Normal Values 2D ECHO LV Diastolic Diameter PLAX 4.3 cm 4.2 - 5.9 / 3.9 - 5.3 cm LV Systolic Diameter PLAX 2.5 cm 2.1 - 4.0 cm LV Fractional Shortening PLAX 41.9 % 25 - 46 % LV Ejection Fraction 2D Teich 73.1 % IVS Diastolic Thickness 1.3 cm LVPW Diastolic Thickness 1.3 cm LV Relative Wall Thickness 0.6 RV Internal Dim ED PLAX 3.3 cm 1.9 - 3.8 cm LVOT Diameter 2.1 cm Aortic Root Diameter 3.3 cm LA Systolic Diameter LX 4.1 cm 3.0 - 4.0 / 2.7 - 3.8 cm LA Volume 113.0 cm 18 - 58 / 22 - 52 cm Ascending Aorta Diameter 2.9 cm DOPPLER AV Peak Velocity 138.0 cm/s AV Peak Gradient 7.6 mmHg AV Mean Velocity 89.4 cm/s AV Mean Gradient 4.0 mmHg AV Velocity Time Integral 25.8 cm LVOT Peak Velocity 66.9 cm/s LVOT Peak Gradient 1.8 mmHg LVOT Mean Velocity 43.7 cm/s LVOT Mean Gradient 1.0 mmHg LVOT Velocity Time Integral 12.4 cm LVOT Stroke Volume 42.9 cm AV Area Cont Eq vti 1.7 cm AV Area Cont Eq pk 1.7 cm MV Peak Velocity 106.0 cm/s MV Peak Gradient 4.5 mmHg MV Mean Velocity 57.6 cm/s MV Mean Gradient 2.0 mmHg Mitral E Point Velocity 98.2 cm/s MV PHT Velocity 113.0 cm/s MV Deceleration Barnwell 497.0 cm/s MV Pressure Half Time 68.2 ms MV Area PHT 3.2 cm MV Deceleration Time 195.0 ms MR Peak Velocity 494.0 cm/s MR Peak Gradient 97.6 mmHg MR ERO PISA 0.2 cm MR Regurgitant Volume PISA 26.9 cm TR Peak Velocity 318.0 cm/s TR Peak Gradient 40.4 mmHg Right Atrial Pressure 5.0 mmHg Pulmonary Artery Systolic Pressu 45.4 mmHg Right Ventricular Systolic Press 45.4 mmHg LV E' Lateral Velocity 11.2 cm/s Mitral E to LV E' Lateral Ratio 8.8 LV E' Septal Velocity 8.7 cm/s Mitral E to LV E' Septal Ratio 11.3
--- NOTE | 2016-04-23 10:23 | PN- Infect Dx ---
Subjective Subjective: Afebrile. She feels improved today with no complaints of cough or shortness of breath. She does report a productive cough with yellow sputum yesterday. Objective Last 24 Hrs of Vital Signs/I&O Vital Signs Date Time Temp Pulse Resp B/P Pulse O2 O2 Flow FiO2 Ox Delivery Rate 04/23 0939 112 155/96 04/23 0820 97.9 112 18 155/96 94 Nasal 2.0L Cannula 04/23 0000 94 Nasal 2.0L Cannula 04/22 2317 102 148/80 04/22 2301 98.3 96 18 140/92 96 Nasal 2.0L Cannula 04/22 2100 98 Nasal 3.0L Cannula 04/22 1650 86 140/84 04/22 1600 Nasal 3.0L Cannula 04/22 1518 98.2 86 20 140/84 95 Nasal 3.0L Cannula 04/22 1206 93 118/78 04/22 1118 95 Nasal 3.0L Cannula Intake & Output 04/23 1600 04/23 0800 04/23 0000 Intake Total 240 400 Output Total 325 375 Balance -85 25 Intake, Oral 240 400 Number 2 Bowel Movements Output, Urine 325 375 Physical Exam Other Physical Findings: She appears comfortable in no acute distress, with obvious cough noted on exam Lungs diffuse rhonchi bilaterally Heart irregular rhythm with a 1/6 systolic ejection murmur Abdomen is soft, nontender with positive bowel sounds Extremities no cyanosis, clubbing or edema Results Last 24 Hours of Lab Results: Laboratory Tests 04/23 06 Chemistry Sodium (137 - 145 mmol/L) 138 Potassium (3.5 - 5.1 mmol/L) 3.7 Chloride (98 - 107 mmol/L) 104 Carbon Dioxide (22 - 30 mmol/L) 24 Anion Gap (5 - 16) 10 BUN (7 - 17 mg/dL) 15 Creatinine (0.5 - 1.0 mg/dL) 0.8 Estimated GFR (>60 ml/min) > 60 BUN/Creatinine Ratio (7 - 25 %) 18.8 Hematology CBC w Diff NO MAN DIFF REQ WBC (4.8 - 10.8 /CUMM) 3.8 L RBC (4.20 - 5.40 /CUMM) 3.10 L Hgb (12.0 - 16.0 G/DL) 9.6 L Hct (37 - 47 %) 28.4 L MCV (81.0 - 99.0 FL) 91.5 MCH (27.0 - 31.0 PG) 30.9 RDW (11.5 - 14.5 %) 15.5 H Plt Count (130 - 400 /CUMM) 199 MPV (7.4 - 10.4 FL) 7.5 Gran % (42.2 - 75.2 %) 61.6 Lymphocytes % (20.5 - 51.1 %) 24.8 Monocytes % (1.7 - 9.3 %) 12.2 H Eosinophils % (0 - 5 %) 0.9 Basophils % (0.0 - 2.0 %) 0.5 Absolute Granulocytes (1.4 - 6.5 /CUMM) 2.3 Absolute Lymphocytes (1.2 - 3.4 /CUMM) 0.9 L Absolute Monocytes (0.10 - 0.60 /CUMM) 0.5 Absolute Eosinophils (0.0 - 0.7 /CUMM) 0 Absolute Basophils (0.0 - 0.2 /CUMM) 0 PUBS MCHC (33.0 - 37.0 G/DL) 33.8 Last 24 Hours of Karel Results: Blood cultures April 20 one bottle positive for coag-negative Staph Assessment/Plan Impression: Somewhat improved with no further fevers and with decreased oxygen requirements now on Moxifloxacin Day 4 of treatment for possible bronchitis versus pneumonia, with CT scan more suggestive of atelectasis than pneumonia. Her leukopenia suggests a viral etiology. The positive blood culture for coag negative Staph presumably represents a contaminant. Suggestion: 1. Would send a sputum culture if possible 2. Continue Moxifloxacin
--- NOTE | 2016-04-23 10:35 | PN- Cardiology ---
Subjective Subjective: The patient is feeling better from a cardiac standpoint. No chest pain. No palpitations. Her ventricular rate is under control on telemetry. Shortness of breath is improving. Objective Vital Signs and I&Os Vital Signs Date Time Temp Pulse Resp B/P Pulse O2 O2 Flow FiO2 Ox Delivery Rate 04/23 0939 112 155/96 04/23 0820 97.9 112 18 155/96 94 Nasal 2.0L Cannula 04/23 0000 94 Nasal 2.0L Cannula 04/22 2317 102 148/80 04/22 2301 98.3 96 18 140/92 96 Nasal 2.0L Cannula 04/22 2100 98 Nasal 3.0L Cannula 04/22 1650 86 140/84 04/22 1600 Nasal 3.0L Cannula 04/22 1518 98.2 86 20 140/84 95 Nasal 3.0L Cannula 04/22 1206 93 118/78 04/22 1118 95 Nasal 3.0L Cannula Intake & Output 04/23 1600 04/23 0800 04/23 0000 04/22 1600 04/22 0800 04/22 0000 Intake Total 240 400 850 337 700 Output Total 325 375 550 500 400 Balance -85 25 300 -163 300 Intake, IV 10 287 300 Intake, Oral 240 400 840 50 400 Number 2 4 1 3 Bowel Movements Output, Urine 325 375 550 500 400 Patient 130 lb Weight Physical Exam: Gen: The patient is in no acute distress HEENT: Normal nose, ears, and oropharynx. Pupils equal bilaterally. Conjunctiva normal. Neck: Supple with no JVD, no masses, and no thyromegaly Lungs: Bilateral rhonchi with normal respiratory effort Heart: Irregularly irregular S1, S2, 1/6 systolic murmur. 1+ peripheral edema, 1+ pulses in the lower extremities bilaterally Abdomen: Soft, nontender, no masses. No hepatomegaly. No splenomegaly Extremities: No clubbing or cyanosis. Normal muscle strength in the upper and lower extremities Skin: Normal skin turgor with no skin ulcers or lesions noted. Current Medications: Current Medications Sig/Yessenia Start time Last Medication Dose Route Stop Time Status Admin Acetaminophen 650 MG Q6P PRN 04/21 0030 AC 04/22 PO 0950 Albuterol Sulfate 3 ML Q4H PRN 04/21 1430 AC 04/22 INH 1117 Aspirin Buffered 81 MG DAILY 04/21 1000 AC 04/23 PO 0936 Atorvastatin Calcium 10 MG DAILY 04/21 1000 AC 04/23 PO 0937 Bisacodyl 10 MG DAILY NEEDED PRN 04/21 2030 AC PO Ceftazidime 1,000 MG Q12H 04/21 0200 DC 04/22 IV 1459 Diltiazem HCl 125 MG Q24H 04/21 0030 DC 04/22 Dextrose/Water 100 ML IV 0030 Guaifenesin 600 MG Q12 04/21 0208 AC 04/23 PO 0937 Heparin Sodium 5,000 UNIT Q8 04/21 0027 AC 04/23 (Porcine) SC 0610 Hydromorphone HCl 2 MG Q6P PRN 04/21 0300 AC PO Ibuprofen 600 MG Q6P PRN 04/21 0030 AC PO Levothyroxine Sodium 0.05 MG DAILY AC 04/21 0700 AC 04/23 PO 0823 Lorazepam 0.5 MG DAILY NEEDED 04/21 0300 AC 04/22 PO 04/28 0259 2317 Metoprolol Tartrate 100 MG BID 04/22 2200 AC 04/23 PO 0939 Metoprolol Tartrate 50 MG ONCE ONE 04/22 1330 DC 04/22 PO 04/22 1331 1650 Metoprolol Tartrate 50 MG BID 04/21 1000 DC 04/22 PO 1206 Moxifloxacin HCl 400 MG DAILY 04/22 1529 AC 04/23 PO 0937 Potassium Chloride 20 MEQ ONCE ONE 04/23 0745 DC 04/23 PO 04/23 0746 0935 Vancomycin HCl 1,000 MG 0130 04/21 0130 DC 04/22 Dextrose/Water 250 ML IV 0230 Results Last 48 Hrs of Labs/Mics: Laboratory Tests 04/23/16 0623: Anion Gap 10, Estimated GFR > 60, BUN/Creatinine Ratio 18.8, CBC w Diff NO MAN DIFF REQ, RBC 3.10 L, MCV 91.5, MCH 30.9, RDW 15.5 H, MPV 7.5, Gran % 61.6, Lymphocytes % 24.8, Monocytes % 12.2 H, Eosinophils % 0.9, Basophils % 0.5, Absolute Granulocytes 2.3, Absolute Lymphocytes 0.9 L, Absolute Monocytes 0.5, Absolute Eosinophils 0, Absolute Basophils 0, PUBS MCHC 33.8 04/22/16 0625: Anion Gap 11, Estimated GFR 60, BUN/Creatinine Ratio 17.8, CBC w Diff NO MAN DIFF REQ, RBC 3.06 L, MCV 92.1, MCH 30.8, RDW 15.3 H, MPV 7.9, Gran % 64.9, Lymphocytes % 24.4, Monocytes % 9.7 H, Eosinophils % 0.5, Basophils % 0.5, Absolute Granulocytes 2.6, Absolute Lymphocytes 1.0 L, Absolute Monocytes 0.4, Absolute Eosinophils 0, Absolute Basophils 0, PUBS MCHC 33.5 Recent Imaging Studies: CTA chest: 1. No acute pulmonary embolus identified. 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 Dilated main pulmonary artery, suspicious for pulmonary hypertension. 2. Partial opacification of the bilateral lower lobes, which may reflect atelectasis and/or consolidation. 3. Trace pleural effusions. 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 The patient is not on full anticoagulation because of GI bleed Continue telemetry? Yes
--- NOTE | 2016-04-23 14:02 | Discharge Summary ---
See Addendum Visit Information Visit Dates Admission Date: 04/20/16 Discharge Date: 04/24/16 Hospital Course Course Attending Physician: ERNESTO SHAIKH,NORBERTO Roque Primary Care Physician: SHEY CARDENAS MD Consulting Request: Consulting Specialty: Cardiology Hospital Course: 85-year-old female with PMH of atrial fibrillation on metoprolol and not on anticoagulation due to falls and GI bleed, hypertension, hypothyroidism, admitted to telemetry for atrial fibrillation with rapid ventricular rate, and suspected pneumonia. vitals on presentation : t-101.1, Hr : 150, RR : 18, bp - 136/92, 92% on room air. relevant labs : whit count of 4.0, rest stable, sodium low at 135, ua negative. Cxray : persistent bibalsial atelectasis/consolidation, no overt pulmoary edema. CTA was done to rule out PE : it showed subsegemtal right lower lobe chronic PE. Partial opcification of b/o lobes ? atelectasis v/s pnuemonia. Problem list alongwith assesment and plan : #1Atrial fibrillation with rapid ventricular rate Cardiology was on board. Intially rate control was continued with metoprolol 50 BID, cardizem drip was started and continue at low dose, subsequently her metoprolol dosage was increased to 100 BID and and Cardizem was discontinued. Ekg and troponins were trended on admission, which remained negative and no significant ischemia changes. #Acute bronchitis with possible early pnuemonia On admission rapid flu negative. CTA was Negative acute PE, shows ?chronic Pulmonary web. One bottle of one set of blood cultures shower gram positive cocci in chains which was recognised as coagulase negative staph and was considered a contaminant. Initially patient was given one time iv vancmycin and ceftazidime for possible HCAP pnuemonia, however in presence of no white count and not very positve cxray findings, perhabs it was thought that she had acute broncitis which was symptomatic, however due to her accompanying hypoxia, she was treated with po moxifloxacin. ID was on board. All other cultures were followed and were found to negative. mucinex 600 q12 was continued. She was discharged on moxifloxacin to complete a total of 7 days (including her days here) # Back pain: central canal narrowingL3-L4 This was cornic, pain was controlled iwth initially iv morphine. Pain pathway with dilaudid for severe pain, motrin moderate, tylenol mild were given. # Hypothyroid * Continued on levothyroxine 50 mcg daily # Anxiety * Continued on lorazepam 0.5 mg prn # Other home meds * meclizine 25 tid prn, aspirin 81 mg daily, atorvastain 10 mg daily, vit D 1000 IU daily were continued as per home dosage. Diet: heart healthy DVT ppx: mech and pharm FULL CODE Allergies: Coded Allergies: Sulfa (Sulfonamide Antibiotics) (HIVES 11/13/15) cyclobenzaprine (Severe, LIGHTHEADED 11/13/15) nitrofurantoin (Severe, SWEATING, DIZZY, RED ALL OVER, SHAKING 11/13/15) codeine (GI 11/13/15) mushroom (DIZZY 11/13/15) Significant Procedures: SERVICE DATE: 04/20/16 EXAM TYPE: RAD - XRY-PORTABLE CHEST XRAY IMPRESSION: Persistent left basilar opacification likely representing pleural effusion and adjacent basilar atelectasis/consolidation. No overt pulmonary edema. SERVICE DATE: 04/20/16 EXAM TYPE: CAT - CT HEAD WO IV CONTRAST FINDINGS: Assessment is somewhat limited due to patient motion artifact. There is no evidence of acute intracranial hemorrhage or territorial infarction. No abnormal mass effect or midline shift is seen. Zhu to white matter differentiation is well preserved. No extra-axial fluid collections are identified. The ventricles are normal in size. A chronic hypoattenuating focus in the left basal ganglia may reflect a chronic lacunar infarct or prominent perivascular space. There is mild periventricular white matter hypoattenuation consistent with chronic small vessel ischemic disease. The osseous structures and soft tissues are normal. The mastoid air cells and visualized portions of the paranasal sinuses are well aerated. IMPRESSION: No acute intracranial pathology. SERVICE DATE: 04/20/16 EXAM TYPE: CAT - CT LUMB SPINE W IV CONTRAST IMPRESSION: 1. Limited assessment of the soft tissues with CT. Degenerative changes as described above. Moderate central canal narrowing is suspected at L3-L4, with likely mild central canal narrowing at L2-L3 and L4-L5. If clinically warranted, this would be better further assessed with MRI. 2. 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 SERVICE DATE: 04/20/16 EXAM TYPE: CAT - CTA CHEST-PULMONARY EMBOLISM IMPRESSION: 1. No acute pulmonary embolus identified. 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 Dilated main pulmonary artery, suspicious for pulmonary hypertension. 2. Partial opacification of the bilateral lower lobes, which may reflect atelectasis and/or consolidation. 3. Trace pleural effusions. 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 Left ventricular wall thickness mildly increased. Normal left ventricular ejection fraction estimated at 60-65%. Right Ventricle Right ventricle not well visualized, grossly normal. Right Atrium Right atrial dilatation. Left Atrium Moderate to severe left atrial dilatation. Mitral Valve Mitral valve thickened. Posteriorly directed mitral regurgitation jet. Moderate mitral regurgitation. Aortic Valve Trileaflet aortic valve. Diffuse thickening (sclerosis) of the aortic valve cusps without reduced excursion. No aortic stenosis. Mild aortic regurgitation. Tricuspid Valve Tricuspid valve not well visualized, grossly normal. Moderate tricuspid regurgitation. Right ventricular systolic pressure estimated at 42 mmHg. Pulmonic Valve Pulmonic valve not well visualized, grossly normal. Pericardium No pericardial effusion. Right and left pleural effusion. Great Vessels Aortic root and proximal ascending aorta not well visualized, grossly normal. CONCLUSIONS 1. This was a technically difficult examination 2. Moderate aortic sclerosis is present with mild aortic insufficiency. 3. Moderate thickening of the mitral leaflets is present with eccentric mitral insufficiency that is at least moderate in severity. Moderate to severe left atrial enlargement is present. 4. THere is no significant pericardial fluid present. 5. BIlateral pleural effusions are present (greater on the left side). 6. The left ventricular chamber size is normal with mild concentric hypertrophy and a normal ejection fraction with no visible resting wall motion abnormalities. 7. The right heart structures are grossly normal with moderate tricuspid insufficiency, mild right atrial enlargement and an estimated RV systolic pressure of 42 mmHg. Disposition Summary Disposition Principal Diagnosis: -Acute bronchtis/early Pneumonia -A fib with rapid RVR Additional Diagnosis: -Chronic back pain -HTN -Hypothyroidism Discharge Disposition: STR Discharge Instructions General Discharge Information Code Status: Full Code Patient's Diet: heart healthy Patient's Activity: as tolerated. 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 Please continue to take your medications as prescribed. Please note the change in dose of your metoprolol medication. No anticiagulation due to bleeding and fall risk Medications at Discharge Discharge Medications: Stop taking the following medications: Levofloxacin (Levofloxacin) 500 MG TABLET ORAL DAILY Qty = 5 Metoprolol Tartrate (Metoprolol Tartrate) (Unknown Strength) TABLET ORAL TWICE DAILY Days = 30 Continue taking these medications: Aspirin (Aysha Aspirin Regimen) 81 MG ECT 2 Tablet ORAL DAILY Comments: LAST DOSE GIVEN ON 03/31/15 AT 09:00AM Atorvastatin Calcium (Lipitor) 10 MG TAB 1 Tablet ORAL DAILY Comments: LAST DOSE GIVEN ON 03/30/15 AT 4:00PM Cholecalciferol (Vitamin D3) 1,000 IU TAB 1 Tablet ORAL DAILY Days = 30 Comments: NOT GIVEN IN HOSPITAL Bisacodyl (Dulcolax) 5 MG TABLET.DR 2 Tablet ORAL DAILY Comments: NOT TAKEN Lorazepam (Lorazepam) 0.5 MG TABLET 1 Tablet ORAL DAILY NEEDED Qty = 60 Comments: Last Taken:04/22/16 Time:11:23P.M Meclizine HCl (Meclizine HCl) 25 MG TABLET 1 Tablet ORAL THREE TIMES A DAY NEEDED Qty = 30 Comments: NOT TAKEN Levothyroxine Sodium (Levothyroxine Sodium) 50 MCG TABLET 1 Tablet ORAL DAILY Qty = 90 Comments: Last Taken: 04/25/16 Time: 8:15 AM Hydromorphone HCl (Hydromorphone HCl) 4 MG TABLET 1 Tablet ORAL THREE TIMES DAILY as needed for PAIN Qty = 180 Comments: NOT GIVEN IN THE HOSPITAL Hydromorphone HCl (Hydromorphone HCl) 2 MG TABLET 1 Tablet ORAL TAKE AT BEDTIME as needed for PAIN Qty = 30 Comments: Last Taken: 04/24/16 Time: 8:40 AM Start taking the following new medications: Moxifloxacin HCl (Moxifloxacin HCl) 400 MG TABLET 400 Milligram ORAL DAILY Days = 1 No Refills Comments: Last Taken: 04/25/16 Time: 9:20 AM Metoprolol Tartrate (Metoprolol Tartrate) 50 MG TABLET 2 Tablet ORAL TWICE DAILY Days = 60 No Refills Comments: Last Taken: 04/25/16 Time: 9:20AM Lidocaine (Lidoderm) 5 % ADH..PATCH 1 Patch ON SKIN DAILY Days = 30 No Refills Instructions: apply 1-2 patch on the back for pain Copies To: RONALD SHAIKH,SHEY; MCKNEZIE SHAIKH,Isaiah TURNER
[2016-04-23 16:57] VITALS: BP 129/74
[2016-04-23 23:00] VITALS: BP 132/84
--- NOTE | 2016-04-24 08:16 | PN- Housestaff ---
ISAK SHAIKH,MELVA 04/24/16 0816: Subjective Follow-up For: acute bronchitis A fib with RVR Tele-Events Since Last Visit: Overnight telemetry shows heart rate between 90s to 110s. Otherwise no events Subjective: Patient appears comfortable in bed with no distress. Complains of headache and back pain. headache since this morning which is new, frontal, no positional change, no vision abnormalities. Has chronic back pain which waxes and wanes. Today reports pain as 8 x 10. Denies difficulty in standing up. Yesterday was more to from bed to chair by physical therapy which patient was able to go. She did received 2 mg of Dilaudid overnight for back pain. /Chest pain, palpitations, syncopal episodes. Review of Systems Constitutional: Reports: see HPI. Objective Last 24 Hrs of Vital Signs/I&O Vital Signs Date Time Temp Pulse Resp B/P Pulse O2 O2 Flow FiO2 Ox Delivery Rate 04/24 0837 97.6 102 18 148/84 94 Nasal 1.0L Cannula 04/24 0000 Nasal 1.0L Cannula 04/23 2300 98.5 94 18 132/84 95 Nasal 1.0L Cannula 04/23 2107 104 132/84 04/23 1657 98.8 94 18 129/74 94 Nasal Cannula 04/23 1136 96 Nasal 2.0L Cannula 04/23 1130 Nasal 2.0L Cannula 04/23 1125 Nasal 2.0L Cannula Intake & Output 04/24 1600 04/24 0800 04/24 0000 Intake Total 250 490 Output Total 250 450 Balance 0 40 Intake, IV 10 10 Intake, Oral 240 480 Output, Urine 250 450 Physical Exam General Appearance: Alert, Oriented X3, Cooperative, No Acute Distress Skin: No Rashes, No Breakdown HEENT: PERRLA Cardiovascular: irregular Lungs: bilateral coarse rhonchi present, crackles. No wheezes noted Abdomen: Normal Bowel Sounds, Soft, No Tenderness Extremities: No Edema Other Physical Findings: Examination of the back. Tenderness noticed on the lumbar spine. No paraspinal tenderness Current Medications: Current Medications Sig/Yessenia Start time Last Medication Dose Route Stop Time Status Admin Acetaminophen 650 MG Q6P PRN 04/21 0030 AC 04/22 PO 0950 Albuterol Sulfate 3 ML Q4H PRN 04/21 1430 AC 04/22 INH 1117 Aspirin Buffered 81 MG DAILY 04/21 1000 AC 04/23 PO 0936 Atorvastatin Calcium 10 MG DAILY 04/21 1000 AC 04/23 PO 0937 Bisacodyl 10 MG DAILY NEEDED PRN 04/21 2030 AC PO Dicyclomine HCl 20 MG 4 TIMES/DAY PRN 04/24 0045 AC PO Docusate Sodium 100 MG DAILY 04/24 0045 CAN PO Guaifenesin 600 MG Q12 04/21 0208 AC 04/23 PO 2107 Heparin Sodium 5,000 UNIT Q8 04/21 0027 AC 04/24 (Porcine) SC 0645 Hydromorphone HCl 2 MG Q6P PRN 04/21 0300 AC 04/24 PO 0841 Ibuprofen 600 MG Q6P PRN 04/21 0030 AC PO Levothyroxine Sodium 0.05 MG DAILY AC 04/21 0700 AC 04/23 PO 0823 Lidocaine 1 PAT DAILY 04/24 0945 AC EXT Lorazepam 0.5 MG DAILY NEEDED 04/21 0300 AC 04/22 PO 04/28 0259 2317 Metoprolol Tartrate 100 MG BID 04/22 2200 AC 04/23 PO 2107 Moxifloxacin HCl 400 MG DAILY 04/22 1529 AC 04/23 PO 0937 Senna 187 MG AT BEDTIME 04/24 0045 CAN PO Last 24 Hrs of Lab/Karel Results Last 24 Hrs of Labs/Mics: Microbiology 04/24 43 STOOL: Clostridium difficile Toxin A & B - COLB Assessment/Plan Assessment: 85-year-old female with PMH of atrial fibrillation not on AC due to falls and GI bleed, hypertension, hypothyroidism, admitted to telemetry for atrial fibrillation with rapid ventricular rate, metoprolol doasge now icnreased, and suspected pnuemonia v/s bronchitis v/s ? influenza. CTA showed chronic PE. Her HR remians in 100's overnight while at rest. # Atrial fibrillation with rapid ventricular rate - Overnight HR remained in 100s - Currently on metoprolol 100 twice a day -We'll touch base with cardiology regarding medication adustment # Bronchitis -Currently on levofloxacin day 4 of antibiotic ( she was started on vancomycin and ceftazidime on admission) we will continue levofloxacin for a total of 7 days - Incentive spirometry - Continue mucolytics # Back pain: central canal narrowingL3-L4 - Chronic waxes and wanes. - Had MRI done in thousand 13 that showed acute mild superior endplate/ compression deformity of the L5 vertebra. Repeat CAT scan was done in summer 2015 for the same complaint that showed compression fracture at L5 has been treated with methacrylate. - CAT scan done on this admission showed moderate central canal narrowing suspected at L3-L4 level. Partial loss of height of L5 without significant change from CAT scan done on March 2016. - Patient's medication included Tylenol and ibuprofen, which unfortunately is not given. The last dose of Tylenol was on and ibuprofen was never given here. She was given Dilaudid IV. - Discussed with the nurse to administer medication. Will start her on Lidoderm - No neurological abnormality/normal white count/normal protein so not suspecting cordcompression fracture/ multiple mueloma at this time. - We will continue to monitor - She takes by mouth Dilaudid at home # Hypothyroid * Continue levothyroxine 50 mcg daily # Anxiety * Continue lorazepam 0.5 mg prn # Other home meds * Continue meclizine 25 tid prn * Continue aspirin 81 mg daily * Continue atorvastain 10 mg daily * Continue vit D 1000 IU daily Diet: heart healthy DVT ppx: mech and pharm FULL CODE Problem List: 1. ATRIAL FIBRILATION 2. Acute bronchitis 3. Lumbar spine strain 4. Spinal stenosis at L4-L5 level Pain Ratin Pain Location: Back Pain Goal: Pain 4 or less Pain Plan: On tylenol, ibuprofen, dilaudid Tomorrow's Labs & Rationales: Not needed patient to be discharged ERNESTO SHAIKH,NORBERTO 04/24/16 1034: Attending MD Review Statement Attending Statement Attending MD Statement: examined this patient, discuss w/resident/PA/DIRECTOR OF EDUCATION, agreed w/resident/PA/DIRECTOR OF EDUCATION, reviewed EMR data (avail), discussed with nursing, discussed with case mgmt Attending Assessment/Plan: Patient is complaining of some lower back pain. She says she gets this and takes Tylenol or ibuprofen for it. She is an 85-year-old who is here with likely community-acquired pneumonia having failed outpatient oral antibiotics. She also has had rapid A. fib in that setting. We are titrating her rate control medications and she is on metoprolol. She is also on moxifloxacin per ID and has a few more days left of the antibiotics. PT is recommending STR and will clarify the rate control agents and plan for discharge.
[2016-04-24 08:37] VITALS: BP 148/84
--- NOTE | 2016-04-24 10:38 | Patient Discharge Instructions ---
Discharge Instructions General Discharge Information You were seen/treated for: graciela Special Instructions: please follow up with your PCP within one week of discharge. Please continue to tkae your medications as prescribed. Completed the course of antibiotic Diet Recommended Diet: Regular Activity Full Activity/No Limits: Yes Acute Coronary Syndrome Inclusion Criteria At DC or during hospital stay patient has or had the following: ACS DIAGNOSIS No Discharge Core Measures Meds if any: Prescribed or Continued at Discharge Meds if any: NOT Prescribed or Continued at Discharge Congestive Heart Failure Inclusion Criteria At DC or during hospital stay patient has or had the following: CHF DIAGNOSIS No Discharge Core Measures Meds if any: Prescribed or Continued at Discharge Meds if any: NOT Prescribed or Continued at Discharge Cerebrovascular accident Inclusion Criteria At DC or during hospital stay patient has or had the following: CVA/TIA Diagnosis No Discharge Core Measures Meds if any: Prescribed or Continued at Discharge Meds if any: NOT Prescribed or Continued at Discharge Venous thromboembolism Inclusion Criteria VTE Diagnosis No VTE Type NONE VTE Confirmed by (Test) NONE Discharge Core Measures - Per Current guidelines, there needs to be overlap - treatment for the first 5 days of Warfarin therapy. - If discharged on Warfarin prior to 5 days of - overlap therapy, the patient will need to be - assessed for post discharge needs including - *Post discharge parental anticoagulation - *Warfarin and/or parental anticoagulation education - *Follow up date to check INR post discharge At least 5 days overlap therapy as Inpatient No Meds if any: Prescribed or Continued at Discharge Note: Overlap Therapy is Warfarin and Anticoagulant Meds if any: NOT Prescribed or Continued at Discharge
[2016-04-24] MEDS ORDERED: MOXIFLOXACIN H400 M2 PO (10:41)
--- NOTE | 2016-04-24 10:41 | PN- Infect Dx ---
Subjective Subjective: Afebrile. She complains of a headache and low back pain, which has been a chronic problem. She reports a minimal cough with no shortness of breath or chest discomfort. Objective Last 24 Hrs of Vital Signs/I&O Vital Signs Date Time Temp Pulse Resp B/P Pulse O2 O2 Flow FiO2 Ox Delivery Rate 04/24 1004 97.6 102 18 148/84 04/24 0837 97.6 102 18 148/84 94 Nasal 1.0L Cannula 04/24 0000 Nasal 1.0L Cannula 04/23 2300 98.5 94 18 132/84 95 Nasal 1.0L Cannula 04/23 2107 104 132/84 04/23 1657 98.8 94 18 129/74 94 Nasal Cannula 04/23 1136 96 Nasal 2.0L Cannula 04/23 1130 Nasal 2.0L Cannula 04/23 1125 Nasal 2.0L Cannula Intake & Output 04/24 1600 04/24 0800 04/24 0000 Intake Total 250 490 Output Total 250 450 Balance 0 40 Intake, IV 10 10 Intake, Oral 240 480 Output, Urine 250 450 Physical Exam Other Physical Findings: She appears frail but in no acute distress Lungs bilateral diffuse rhonchi Heart irregular rhythm with a 1/6 systolic ejection murmur Extremities no cyanosis, clubbing or edema Results Last 24 Hours of Lab Results: No labs from today Last 24 Hours of Karel Results: No recent cultures Assessment/Plan Impression: Stable with temperatures and white blood cell count remaining normal on Moxifloxacin now Day 5 of treatment for possible bronchitis versus pneumonia, with oxygen requirements further decreased. Her leukopenia persists suggesting a viral etiology. Suggestion: 1. Continue Moxifloxacin for 2 more days
--- NOTE | 2016-04-24 14:03 | PN- Cardiology ---
Subjective Subjective: Clinically improved and stable. Rate better controlled Objective Vital Signs and I&Os Vital Signs Date Time Temp Pulse Resp B/P Pulse O2 O2 Flow FiO2 Ox Delivery Rate 04/24 1218 94 Nasal 1.0L Cannula 04/24 1004 97.6 102 18 148/84 04/24 0837 97.6 102 18 148/84 94 Nasal 1.0L Cannula 04/24 0800 94 Nasal 1.0L Cannula 04/24 0000 Nasal 1.0L Cannula 04/23 2300 98.5 94 18 132/84 95 Nasal 1.0L Cannula 04/23 2107 104 132/84 04/23 1657 98.8 94 18 129/74 94 Nasal Cannula Intake & Output 04/24 1600 04/24 0800 04/24 0000 04/23 1600 04/23 0800 04/23 0000 Intake Total 250 490 550 240 400 Output Total 250 450 600 325 375 Balance 0 40 -50 -85 25 Intake, IV 10 10 Intake, Oral 240 480 550 240 400 Number 2 Bowel Movements Output, Urine 250 450 600 325 375 Patient 120 lb Weight Physical Exam: General Appearance: Alert, Oriented X3, Cooperative, No Acute Distress Skin: No Rashes, No Breakdown HEENT: PERRLA Cardiovascular: irregular, S1, S2 , 2/6 systolc murmur Lungs: bilateral coarse rhonchi present, crackles. No wheezes noted Abdomen: Normal Bowel Sounds, Soft, No Tenderness Extremities: No Edema Current Medications: Current Medications Sig/Yessenia Start time Last Medication Dose Route Stop Time Status Admin Acetaminophen 650 MG Q6P PRN 04/21 0030 AC 04/22 PO 0950 Albuterol Sulfate 3 ML Q4H PRN 04/21 1430 AC 04/22 INH 1117 Aspirin Buffered 81 MG DAILY 04/21 1000 AC 04/24 PO 1004 Atorvastatin Calcium 10 MG DAILY 04/21 1000 AC 04/24 PO 1004 Bisacodyl 10 MG DAILY NEEDED PRN 04/21 2030 AC PO Dicyclomine HCl 20 MG 4 TIMES/DAY PRN 04/24 0045 AC PO Docusate Sodium 100 MG DAILY 04/24 0045 CAN PO Guaifenesin 600 MG Q12 04/21 0208 AC 04/24 PO 1004 Heparin Sodium 5,000 UNIT Q8 04/21 0027 AC 04/24 (Porcine) SC 1303 Hydromorphone HCl 2 MG Q6P PRN 04/21 0300 AC 04/24 PO 0841 Ibuprofen 600 MG Q6P PRN 04/21 0030 AC PO Levothyroxine Sodium 0.05 MG DAILY AC 04/21 0700 AC 04/23 PO 0823 Lidocaine 1 PAT DAILY 04/24 0945 AC 04/24 EXT 1041 Lorazepam 0.5 MG DAILY NEEDED 04/21 0300 AC 04/22 PO 04/28 0259 2317 Metoprolol Tartrate 100 MG BID 04/22 2200 AC 04/24 PO 1004 Moxifloxacin HCl 400 MG DAILY 04/22 1529 AC 04/24 PO 1004 Senna 187 MG AT BEDTIME 04/24 0045 CAN PO Results Last 48 Hrs of Labs/Mics: Laboratory Tests 04/23/16 0623: Anion Gap 10, Estimated GFR > 60, BUN/Creatinine Ratio 18.8, CBC w Diff NO MAN DIFF REQ, RBC 3.10 L, MCV 91.5, MCH 30.9, RDW 15.5 H, MPV 7.5, Gran % 61.6, Lymphocytes % 24.8, Monocytes % 12.2 H, Eosinophils % 0.9, Basophils % 0.5, Absolute Granulocytes 2.3, Absolute Lymphocytes 0.9 L, Absolute Monocytes 0.5, Absolute Eosinophils 0, Absolute Basophils 0, PUBS MCHC 33.8 Assessment/Plan Assessment/Plan Assessment: * Chronic atrial fibrillation, rate under control on metoprolol * Pneumonia * Positive blood culture * 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 Continue telemetry? Yes
[2016-04-24 14:26] VITALS: BP 148/84
--- NOTE | 2016-04-24 15:30 | NUR ---
PATIENT IS DISCHARGE TO [facility]. EMS HERE TO TRANSPORT PATIENT. PATIENT REFUSED TO LEAVE CITING SHE WAS NOT TOLD EARLIER. PATIENT WAS AWARE OF BEING DISCHARGE SINCE YESTERDAY PER MD. PATIENT MAINTAINED SHE WAS NOT INFORMED EARLY ENOUGH. DR OROZCO AWARE. COVERING RESIDENT MELVA CALLED AND IS AT PATIENT'S BEDSIDE. DARIELA ALEXANDER ALSO AWARE. WILL FOLLOW.
[2016-04-24 15:47] VITALS: BP 140/80
[2016-04-24 23:03] VITALS: BP 138/80
--- NOTE | 2016-04-25 00:37 | NUR ---
NURSING NOTE: PT ISNT ALLOWING THIS RN OR MST TO REPOSITION HER. STATES SHE IS NOT IN HER BED AND DOESNT WANT TO SLEEP IN IT. WHEN REORIENTING HER TO REMIND HER SHE IS IN THE BED SHE SAYS "I KNOW BUT I AM SLEEPING IN MY OTHER BED". SHE TOLD THIS RN TO GET OUT OF HER ROOM AND FIND SOMEONE NICER. BED ALARM IN PLACE. PT SITTING IN HIGH FOWLERS AND IN AND OUT OF SLEEP. WILL CTM.
--- NOTE | 2016-04-25 07:41 | PN- Housestaff ---
ISAK SHAIKH,[facility] 04/25/16 0741: Subjective Follow-up For: Cough Tele-Events Since Last Visit: Telemetry showed normal sinus rhythm with heart rate between 90s to 100. No other events. Subjective: Patient is lying comfortable today. Upset about thah she was not informed about the rehab yesterday. Back pian better with lidoderm patch. On PO medications as well cough reduced, producing some white phlem Review of Systems Constitutional: Reports: see HPI. Objective Last 24 Hrs of Vital Signs/I&O Vital Signs Date Time Temp Pulse Resp B/P Pulse O2 O2 Flow FiO2 Ox Delivery Rate 04/25 0921 120 161/94 04/25 0902 98.0 120 18 161/94 94 Nasal Cannula 04/25 0800 Nasal 1.0L Cannula 04/25 0000 Nasal 1.0L Cannula 04/24 2303 98.0 117 20 138/80 95 Nasal 1.0L Cannula 04/24 2257 117 138/80 04/24 2142 95 Nasal 1.0L Cannula 04/24 1600 Nasal 1.0L Cannula 04/24 1547 97.4 98 18 140/80 95 Nasal 1.0L Cannula 04/24 1426 97.6 102 18 148/84 04/24 1218 94 Nasal 1.0L Cannula 04/24 1004 97.6 102 18 148/84 Intake & Output 04/25 1600 04/25 0800 04/25 0000 Intake Total 50 480 Output Total 100 200 Balance -50 280 Intake, Oral 50 480 Number 0 Bowel Movements Output, Urine 100 200 Physical Exam General Appearance: Alert, Oriented X3, Cooperative, No Acute Distress Skin: No Rashes Cardiovascular: Regular Rate, Normal S1, Normal S2, No Murmurs Lungs: Clear to Auscultation Abdomen: Normal Bowel Sounds, Soft, No Tenderness Neurological: Normal Speech Extremities: No Clubbing, No Edema Current Medications: Current Medications Sig/Yessenia Start time Last Medication Dose Route Stop Time Status Admin Acetaminophen 650 MG .STK-MED ONE 04/25 0108 DC PO 04/25 0109 Acetaminophen 650 MG Q6P PRN 04/21 0030 AC 04/25 PO 0117 Albuterol Sulfate 3 ML Q4H PRN 04/21 1430 AC 04/22 INH 1117 Aspirin Buffered 81 MG DAILY 04/21 1000 AC 04/25 PO 0919 Atorvastatin Calcium 10 MG DAILY 04/21 1000 AC 04/25 PO 0920 Bisacodyl 10 MG DAILY NEEDED PRN 04/21 2030 AC PO Dicyclomine HCl 20 MG 4 TIMES/DAY PRN 04/24 0045 AC PO Guaifenesin 600 MG Q12 04/21 0208 AC 04/25 PO 0920 Heparin Sodium 5,000 UNIT Q8 04/21 0027 AC 04/24 (Porcine) SC 2257 Hydromorphone HCl 2 MG Q6P PRN 04/21 0300 AC 04/24 PO 0841 Ibuprofen 600 MG Q6P PRN 04/21 0030 AC PO Levothyroxine Sodium 0.05 MG DAILY AC 04/21 0700 AC 04/25 PO 0815 Lidocaine 1 PAT DAILY 04/24 0945 AC 04/25 EXT 0922 Lorazepam 0.5 MG DAILY NEEDED 04/21 0300 AC 04/22 PO 04/28 0259 2317 Metoprolol Tartrate 100 MG BID 04/22 2200 AC 04/25 PO 0921 Moxifloxacin HCl 400 MG DAILY 04/22 1529 AC 04/25 PO 0920 Assessment/Plan Assessment: 85-year-old female with PMH of atrial fibrillation not on AC due to falls and GI bleed, hypertension, hypothyroidism, admitted to telemetry for atrial fibrillation with rapid ventricular rate, metoprolol doasge now icnreased, and suspected pnuemonia v/s bronchitis v/s ? influenza. CTA showed chronic PE. Pateint today is feeling fine. ON Po abx for PNA/bronchitis. # Atrial fibrillation with rapid ventricular rate, controlled now - Cardio agreed on continuing Metoprolol 100 BID - Overnight have rate remained between 90s to 100 -Follow-upwith Naun Davila MD upon discharge. # Bronchitis/early pneumonia -Currently on levofloxacin day 6 of antibiotic ( she was started on vancomycin and ceftazidime on admission) we will continue levofloxacin for a total of 7 days - Incentive spirometry - Continue mucolytics # Back pain: central canal narrowingL3-L4 -Better with Lidoderm patch. We will add this to her discharge medication. - Had MRI done in that showed acute mild superior endplate/ compression deformity of the L5 vertebra. Repeat CAT scan was done in summer 2015 for the same complaint that showed compression fracture at L5 has been treated with methacrylate. - CAT scan done on this admission showed moderate central canal narrowing suspected at L3-L4 level. Partial loss of height of L5 without significant change from CAT scan done on March 2016. - No neurological abnormality/normal white count/normal protein so not suspecting cordcompression fracture/ multiple mueloma at this time. - We will continue to monitor - She takes by mouth Dilaudid at home # Hypothyroid * Continue levothyroxine 50 mcg daily # Anxiety * Continue lorazepam 0.5 mg prn # Other home meds * Continue meclizine 25 tid prn * Continue aspirin 81 mg daily * Continue atorvastain 10 mg daily * Continue vit D 1000 IU daily Diet: heart healthy DVT ppx: mech and pharm FULL CODE Patient is stable to be discharged to rehabilitation today. We (case management /nurse) met with the patient with her caregiver Shreya. Patient was explained that she will be going to [place] today as she will need rehab to regain her strength with PT. She was in agreement to be discharged today. Problem List: 1. Hypoxia 2. Acute bronchitis 3. Pneumonia 4. Atrial fibrillation with RVR Pain Ratin Pain Location: Back pain Pain Goal: Pain 4 or less Pain Plan: On Lidoderm patch, Dilantin by mouth Tomorrow's Labs & Rationales: Patient discharged today Consulting Request: Consulting Specialty: Cardiology ERNESTO SHAIKH,NORBERTO 04/25/16 1141: Attending MD Review Statement Attending Statement Attending MD Statement: examined this patient, discuss w/resident/PA/[employer] SPECIALIST, agreed w/resident/PA/[employer] SPECIALIST, reviewed EMR data (avail), discussed with nursing, discussed with case mgmt Attending Assessment/Plan: Patient did not leave yesterday as planned because she was upset about the choice of STR facility. Although her daughter had accepted the bed at the facility. Today this was discussed extensively with her and her caregiver and her daughter and the manager case management. She has accepted the bed in [place] and will be going there. She is going on the higher dose of metoprolol with close outpatient follow-up.
[2016-04-25 09:02] VITALS: BP 161/94
[2016-04-25] MEDS ORDERED: MOXIFLOXACIN H400 M2 PO (10:02)
[2016-04-25] MEDS ORDERED: LIDODERM1 EACH EXT (10:02)
[2016-04-25 10:21] VITALS: BP 146/82; BP 148/84
[2016-04-25 11:53] VITALS: BP 137/87
--- NOTE | 2016-04-25 18:29 | PN- Cardiology ---
Subjective Subjective: Stable with controlled rate on monitor Objective Vital Signs and I&Os Vital Signs Date Time Temp Pulse Resp B/P Pulse O2 O2 Flow FiO2 Ox Delivery Rate 04/25 1153 90 137/87 04/25 1021 98.0 18 90 146/82 04/25 0921 120 161/94 04/25 0902 98.0 120 18 161/94 94 Nasal Cannula 04/25 0800 Nasal 1.0L Cannula 04/25 0000 Nasal 1.0L Cannula 04/24 2303 98.0 117 20 138/80 95 Nasal 1.0L Cannula 04/24 2257 117 138/80 04/24 2142 95 Nasal 1.0L Cannula Intake & Output 04/25 1600 04/25 0800 04/25 0000 04/24 1600 04/24 0800 04/24 0000 Intake Total 50 480 360 250 490 Output Total 100 200 250 450 Balance -50 280 360 0 40 Intake, IV 10 10 Intake, Oral 50 480 360 240 480 Number 0 Bowel Movements Output, Urine 100 200 250 450 Current Medications: Current Medications Sig/Yessenia Start time Last Medication Dose Route Stop Time Status Admin Acetaminophen 650 MG .STK-MED ONE 04/25 0108 DC PO 04/25 0109 Acetaminophen 650 MG Q6P PRN 04/21 0030 DCD 04/25 PO 0117 Albuterol Sulfate 3 ML Q4H PRN 04/21 1430 DCD 04/22 INH 1117 Aspirin Buffered 81 MG DAILY 04/21 1000 DCD 04/25 PO 0919 Atorvastatin Calcium 10 MG DAILY 04/21 1000 DCD 04/25 PO 0920 Bisacodyl 10 MG DAILY NEEDED PRN 04/21 2030 DCD PO Dicyclomine HCl 20 MG 4 TIMES/DAY PRN 04/24 0045 DCD PO Guaifenesin 600 MG Q12 04/21 0208 DCD 04/25 PO 0920 Heparin Sodium 5,000 UNIT Q8 04/21 0027 DCD 04/24 (Porcine) SC 2257 Hydromorphone HCl 2 MG Q6P PRN 04/21 0300 DCD 04/24 PO 0841 Ibuprofen 600 MG Q6P PRN 04/21 0030 DCD PO Levothyroxine Sodium 0.05 MG DAILY AC 04/21 0700 DCD 04/25 PO 0815 Lidocaine 1 PAT DAILY 04/24 0945 DCD 04/25 EXT 0922 Lorazepam 0.5 MG DAILY NEEDED 04/21 0300 DCD 04/22 PO 04/28 0259 2317 Metoprolol Tartrate 100 MG BID 04/22 2200 DCD 04/25 PO 0921 Moxifloxacin HCl 400 MG DAILY 04/22 1529 DCD 04/25 PO 0920 Patient Medication 1 ED .STK-MED ONE 04/25 1352 DC Teaching ED 04/25 1353 Assessment/Plan Assessment/Plan Assessment: * Chronic atrial fibrillation, rate under control on metoprolol * Pneumonia * Positive blood culture * 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 Continue telemetry? No
== END 2016-04-25 11:55 | DRG 308 ==
LOC: ENRESERVDT → ENRESERVTM → ERH 20:16 → DELPENDDIS 23:29 → 1NO 23:29 → ENPENDDIS 23:29 → ERHI 23:29 → 1NO 04-21 16:35 → CMPBEDREQ 04-22 08:11 → 1NO 04-22 08:19
PROVIDERS: Internal Medicine; Internal Medicine Hematology & Oncology; Physician Assistant; Student in an Organized Health Care Education/Training Program; ADMIT Student in an Organized Health Care Education/Training Program
DX: I48.2 Chronic atrial fibrillation (principal); J18.9 Pneumonia, unspecified organism; E87.0 Hyperosmolality and hypernatremia; I27.2 Other secondary pulmonary hypertension; J20.9 Acute bronchitis, unspecified; I10 Essential (primary) hypertension; E03.9 Hypothyroidism, unspecified; K21.9 Gastro-esophageal reflux disease without esophagitis; M19.90 Unspecified osteoarthritis, unspecified site; M06.9 Rheumatoid arthritis, unspecified; M54.9 Dorsalgia, unspecified
CPT/HCPCS: 1NSP; ERO; 36415; 81001; 82436; 87040; 87070; 87147; 87449; 87450; 87804; 87804-59; 93005; 93010; 93306; 96374; 96375; 96376; 97110-GO; 97116-GO; 97530-GO; 97530-GP; J0131; J0713; J1644; J3370; J7060

== ENCOUNTER 2016-05-04 15:45 | Emergency (ER) | payer OTHER, MEDICARE ==
[~2016-05-04] VITALS: Ht 162.6 cm; Wt 55.8 kg
[~2016-05-04 15:45] MED LIST changes: +LEVOFLOXACIN500 M1 PO; +MOXIFLOXACIN H400 M2 PO
--- NOTE | 2016-05-04 16:10 | ED GENERAL ADULT ---
History of Present Illness General Chief Complaint: General Adult Stated Complaint: PNEUMONIA? Source: patient, old records, EMS, W10 Exam Limitations: patient's age Vital Signs & Intake/Output Vital Signs & Intake/Output Vital Signs Date Time Temp Pulse Resp B/P Pulse O2 O2 Flow FiO2 Ox Delivery Rate 05/04 1954 97.6 107 18 119/77 97 Room Air 05/04 1814 97.5 103 18 131/71 97 Room Air 05/04 1559 Nasal 2.0L Cannula 05/04 1558 96.8 100 20 121/58 100 Nasal 2.0L Cannula Allergies Coded Allergies: Sulfa (Sulfonamide Antibiotics) (HIVES 11/13/15) cyclobenzaprine (Severe, LIGHTHEADED 11/13/15) nitrofurantoin (Severe, SWEATING, DIZZY, RED ALL OVER, SHAKING 11/13/15) codeine (GI 11/13/15) mushroom (DIZZY 11/13/15) Reconcile Medications Aspirin (Aysha Aspirin Regimen) 81 MG ECT 2 TAB PO DAILY HEART (Reported) Atorvastatin Calcium (Lipitor) 10 MG TAB 1 TAB PO DAILY CHOLESTEROL (Reported ) Bisacodyl (Dulcolax) 5 MG TABLET.DR 2 TAB PO DAILY GI (Reported) Cholecalciferol (Vitamin D3) 1,000 IU TAB 1 TAB PO DAILY SUPPLEMENT Hydromorphone HCl 4 MG TABLET 1 TAB PO TID PRN PAIN (Reported) Hydromorphone HCl 2 MG TABLET 1 TAB PO QHS PRN PAIN (Reported) Levothyroxine Sodium 50 MCG TABLET 1 TAB PO DAILY THYROID (Reported) Lidocaine (Lidoderm) 5 % ADH..PATCH 1 PAT EXT DAILY back pain apply 1-2 patch on the back for pain Lorazepam 0.5 MG TABLET 1 TAB PO DAILY NEEDED ANXIETY (Reported) Meclizine HCl 25 MG TABLET 1 TAB PO TIDPRN DIZZY (Reported) Metoprolol Tartrate 50 MG TABLET 2 TAB PO BID heart health Moxifloxacin HCl 400 MG TABLET 400 MG PO DAILY BRONCHITIS Triage Note: 85 Y/O FEMALE BIBA FROM SNF FOR CHEST XRAY READ: PNEUMONIA. PATIENT REPORTS INTERMITTENT COUGH. REPORTS NO ADDITIONAL COMPLAINTS. AFEBRILE UPON ARRIVAL. Triage Nurses Notes Reviewed? yes Onset: Gradual Duration: day(s): (2) Timing: recent history Injury Environment: home Severity: mild Severity Numbers: 4 No Modifying Factors: none Associated Symptoms: cough HPI: Patient is an 85-year-old female presenting to the emergency department with chief complaint of evaluation for questionable pneumonia and questionable ileus. Patient resides at a nursing facility. She was complaining about constipation over the past several days so they gave her an enema yesterday and she woke up early this morning with extensive diarrhea, she reports 5 or 6 episodes of loose watery diarrhea. She is denying any current abdominal pain. She reports a gets crampy before she has to move her bowels. They didn't abdominal x-ray which showed questionable ileus. She has also been coughing so they did a chest x- ray. It noted questionable right lower lobe pneumonia. Patient denies any fevers or chills chest pain or shortness of breath. She does not use oxygen at home. (YENNY GRAHAM) Past History Travel History Traveled to [place] past 21 day No Medical History Any Pertinent Medical History? 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 History of MRSA: No History of VRE: No History of CDIFF: No Pneumonia Vaccine: 01/05/15 Influenza Vaccine: 01/06/16 Surgical History Surgical History: appendectomy, cholecystectomy, hysterectomy, knee replacement (left knee), status post venous stripping status post bilateral carpal tunnel surgeries Psychosocial History Who do you live with Patient/Self Services at Home Home Health Aide What is your primary language Libyan Tobacco Use: Cognitive Impairment ETOH Use: denies use Illicit Drug Use: denies illicit drug use Family History Family History, If Any: DAUGHTER FH: diabetes mellitus Hx Contributory? No (YENNY GRAHAM) Review of Systems Review of Systems Constitutional: Reports: no symptoms. Comments Review of systems: See HPI, All other systems negative. Constitutional, no chills fever or weight loss HEENT: No visual changes no sore throat no congestion Cardiovascular: No chest pain ,palpitation , orthopnea or ankle swelling Skin, no jaundice no rashes Respiratory: No dyspnea sputum or hemoptysis GI: No nausea no vomiting : No dysuria No hematuria Muscle skeletal: no back pain, no neck pain, Neurologic: No numbness no confusion no miller Psych: No stress anxiety Immunology: No splenectomy or history of AIDS (MIKE MCCOY,YENNY) Physical Exam Physical Exam General Appearance: well developed/nourished, no apparent distress, alert, awake , comfortable Comments: Well-developed well-nourished person in no acute distress HEENT: extraocular motion intact, no nystagmus. Pupils equally round and reactive to light and accommodation. Nose is atraumatic. External auditory canal and Tympanic membranes clear. Pharynx normal. No swelling or edema. Neck: Supple, no lymphadenopathy Back: Nontender, no CVA tenderness. Full range of motion Cardiovascular: Regular rate and rhythms no murmurs rubs or gallops, normal JVP Respiratory: Chest nontender. No respiratory distress.scattered rhonchi to auscultation bilaterally Abdomen: Soft, nontender nondistended, no appreciable organomegaly. Hyperactive bowel sounds.. No ascites Extremity: Nonpitting edema bilaterally, no calf tenderness to palpation, normal and equal pulses. Neuro: Alert oriented x3, motor sensory normal, cranial nerves II through XII grossly intact. Skin: No appreciable rash on exposed skin, skin is warm and dry. Psych: Mood and affect is normal, memory and judgment is normal. Core Measures ACS in differential dx? No CVA/TIA Diagnosis: No Severe Sepsis Present: No Septic Shock Present: No (YENNY GRAHAM) Progress Differential Diagnoses I considered the following diagnoses in my evaluation of the patient: Pneumonia , bronchitis, upper respiratory infection, enteritis, SPO, dehydration, electrolyte abnormality, ileus Diagnostic Imaging: Viewed by Me: Radiology Read, CT Scan. Discussed w/RAD: Radiology Read, CT Scan. Radiology Impression: PATIENT: ARMAAN REED PRESENT AGE: 85 PATIENT ACCOUNT NO: [id number] : 31 LOCATION: [facility] ORDERING PHYSICIAN: YENNY MCCOY SERVICE DATE: 05/04/16 EXAM TYPE: RAD - XRY-PORTABLE CHEST XRAY EXAMINATION: XR PORTABLE CHEST CLINICAL INFORMATION: Cough. Evaluate for pneumonia. COMPARISON: CTA chest 04/20/2016. TECHNIQUE: Portable AP view of the chest was obtained. FINDINGS: Single AP view of the chest is slightly limited secondary to patient rotation. There is blunting of the bilateral costophrenic angles, indicative of small bilateral pleural effusions. There is focal airspace consolidation within the right lung base, which could reflect atelectasis or infection in the appropriate clinical setting. Cardiomediastinal contours are stable. There is stable prominence of the cardiac silhouette, without overt pulmonary edema. No pneumothoraces. No acute osseous or soft tissue abnormality. IMPRESSION: Small bilateral pleural effusions. Right basilar opacification is nonspecific and could reflect atelectasis given overlying pleural effusion although consolidation secondary to pneumonia cannot be excluded in the appropriate clinical setting. Consider correlation with PA and lateral chest x-ray., PRESENT AGE: 85 PATIENT ACCOUNT NO: [id number] : 31 LOCATION: [facility] ORDERING PHYSICIAN: YENNY MCCOY SERVICE DATE: 05/04/16 EXAM TYPE: CAT - CT ABD & PELVIS W/O IV CONTRAS EXAMINATION: CT ABDOMEN AND PELVIS WITHOUT CONTRAST CLINICAL INFORMATION: Questionable small bowel obstruction on x-ray performed at an outside facility. COMPARISON: CT abdomen and pelvis with contrast 03/07/2016. TECHNIQUE: Multidetector volumetric imaging was performed from the superior aspect of the liver through the pubic symphysis. Sagittal and coronal reformatted images were obtained on the technologist's workstation. DLP: 239 mGy-cm. FINDINGS: Limited evaluation of the solid abdominal viscera in the absence of intravenous contrast. LUNG BASES: Evaluation of the included lung bases demonstrates bilateral pleural effusions, small in volume on the right and trace in volume on the left. There is right basilar airspace consolidation which could reflect aspiration pneumonitis, infection or atelectasis. No significant pericardial effusion is identified. LIVER, GALLBLADDER, AND BILIARY TREE: The liver is normal in size, shape, and attenuation. No contour deforming hepatic lesion or biliary ductal dilatation is present. The gallbladder is surgically absent. PANCREAS: Unremarkable. SPLEEN: Unremarkable. ADRENAL GLANDS: Unremarkable. KIDNEYS AND URETERS: Evaluation of the bilateral kidneys and renal collecting systems is notable for hyperdense lesions along the upper pole of the left kidney and the lower pole of the right kidney visualized measuring up to 9 mm in length. These likely reflect complex renal cortical cysts with internal proteinaceous/hemorrhagic debris. There is a punctate 1 mm nonobstructing stone within the midpole of the left kidney. There are no visible ureteral stones and there is no appreciable hydroureteronephrosis of either kidney or renal collecting system. BLADDER: Unremarkable. GASTROINTESTINAL TRACT: Normal anatomic orientation of the stomach relative to the duodenum. Normal caliber of abdominal and pelvic bowel loops, without evidence of obstruction or ileus. Postsurgical changes related to prior distal colonic surgery and anastomosis. The anastomotic sites within the left kidney pelvis appears grossly patent. Nonvisualization of the appendix. No acute inflammatory changes within the right lower quadrant of the abdomen. No organizing intra-abdominal fluid collections or free intraperitoneal air. ABDOMINAL WALL: No significant hernia is appreciated. LYMPH NODES: No significant abdominal or pelvic adenopathy. VASCULAR: Normal course and caliber of the abdominal aorta and its branching vessels, without aneurysmal dilatation. Limited evaluation for vascular patency in the absence of intravenous contrast. Scattered atherosclerosis of the abdominal aorta and its branching vessels. PELVIC VISCERA: Status post hysterectomy. No visible adnexal masses. OSSEOUS STRUCTURES: Diffuse demineralization of the visualized bones. Chronic appearing compression deformity involving the L5 vertebral body with approximately 50% disc height loss centrally and evidence of prior vertebroplasty. No visible acute osseous abnormalities. Remote fracture involving the left inferior pubic ramus. No destructive osseous lesions. IMPRESSION: 1. Limited exam secondary to lack of intravenous or oral contrast. Limited evaluation of the solid abdominal viscera. Bilateral pleural effusions, right greater than left, with overlying right basilar consolidation. This may be secondary to atelectasis although superimposed infection or aspiration pneumonitis cannot be excluded in the appropriate clinical setting. 2. Postsurgical changes related to prior distal colonic surgery and anastomosis. Normal caliber of abdominal and pelvic bowel loops, without findings suggestive of small bowel obstruction. DICTATED BY: CLAUDIA MOCK MD DATE/TIME DICTATED:05/04/161851 ALMOND CUTTING MACHINE TENDER:NARINDER DATE/TIME TRANSCRIBED:05/04/161851 CONFIDENTIAL, DO NOT COPY WITHOUT APPROPRIATE AUTHORIZATION. <Electronically signed in Other Vendor System> SIGNED BY: CLAUDAI MOCK MD 05/04/161921 Initial ED EKG: A. fib at 105 bpm Prior EKG: unchanged Comments: 05/04/2016 4:20:37 PM on arrival patient no acute distress, afebrile vitals within normal range. EKG is unchanged. Patient does have diffuse rhonchi on exam. We will repeat an x-ray and also obtain CT of the abdomen although patient is not having any abdominal pain on exam. She is sent in from the retirement to rule out ileus. Patient declined pain medication at this time. 05/04/2016 6:21:24 PM patient informed of all lab work results and x-ray results. So pending CT of the abdomen. Patient doeshave questionable pneumonia on x-ray , she has no fever and no white count. pt can be tx for pna at nursing facility. pt seen and evaluated by dr parks and she agrees with plan. (MIKE MCCOY,YENNY) Plan of Care: Orders Procedure Date/time Status Telemetry/Repairer Pump 05/04 160 Active CULTURE,STOOL 05/04 1609 Active C.DIFFICILE 05/04 1609 Active BLOOD CULTURE 05/04 1609 Active PARTIAL THROMBOPLASTIN TIME 05/04 1609 Complete PROTHROMBIN TIME 05/04 1609 Complete LIPASE 05/04 1609 Complete LACTIC ACID 05/04 1609 Complete COMPREHENSIVE METABOLIC PANEL 05/04 1609 Complete CBC WITHOUT DIFFERENTIAL 05/04 1609 Complete AMYLASE 05/04 1609 Complete EKG 05/04 1609 Active Laboratory Tests 05/04/16 1909: Lactic Acid Cancelled 05/04/16 1650: Anion Gap 12, Estimated GFR > 60, BUN/Creatinine Ratio 17.5, Glucose 99, Lactic Acid 1.2, Calcium 9.0, Total Bilirubin 0.7, AST 16, ALT 26, Alkaline Phosphatase 59, Total Protein 6.3, Albumin 3.4 L, Globulin 2.9, Albumin/Globulin Ratio 1.2, Amylase < 30 L, Lipase 91, PT 12.8 H, INR 1.22 H, APTT 29, CBC w Diff NO MAN DIFF REQ, RBC 2.93 L, MCV 90.7, MCH 30.2, RDW 16.0 H, MPV 7.1 L, Gran % 60.5, Lymphocytes % 23.2, Monocytes % 12.2 H, Eosinophils % 3.4, Basophils % 0.7, Absolute Granulocytes 3.0, Absolute Lymphocytes 1.2, Absolute Monocytes 0.6, Absolute Eosinophils 0.2, Absolute Basophils 0, PUBS MCHC 33.4 Microbiology 05/04 1658 BLOOD: Blood Culture - RECD 05/04 1650 BLOOD: Blood Culture - RECD 05/04 1609 STOOL: Clostridium difficile Toxin A & B - ORD 05/04 1609 STOOL: Stool Culture - ORD Departure Departure Time of Disposition: 1946 Disposition: HOME OR SELF CARE Condition: Stable Clinical Impression Primary Impression: Pneumonia Qualifiers: Pneumonia type: due to unspecified organism Laterality: right Lung location: lower lobe of lung Qualified Code: J18.1 - Lobar pneumonia, unspecified organism Referrals: RONALD SHAIKH,SHEY Additional Instructions: Requiring close observation for pneumonia vs. atelectasis, start Levaquin 500 milligrams daily for 5 days and reevaluate. Patient is well-appearing does not need hospital admission. Patient is not hypoxic or febrile. No elevation in white blood cell count. Departure Forms: Customer Survey General Discharge Information (YENNY GRAHAM) PA/POULTRY INSPECTOR Co-Sign Statement Statement: ED Attending supervision documentation- [x] I saw and evaluated the patient. I have also reviewed all the pertinent lab results and diagnostic results. I agree with the findings and the plan of care as documented in the PA's/POULTRY INSPECTOR's documentation. [x] I have reviewed the ED Record and agree with the PA's/POULTRY INSPECTOR's documentation. [] Additions or exceptions (if any) to the PAs/POULTRY INSPECTOR's note and plan are summarized below: [] (TANVI SHAIKH,JEREMIAH) Critical Care Note Critical Care Note Critical Care Time: non-applicable (YENNY GRAHAM)
[2016-05-04 17:14] LABS: ABSOLUTE BASOPHIL COUNT 0 /CUMM (0.0-0.2); ABSOLUTE EOSINOPHIL COUNT 0.2 /CUMM (0.0-0.7); ABSOLUTE LYMPH COUNT 1.2 /CUMM (1.2-3.4); ABSOLUTE MONOCYTE COUNT 0.6 /CUMM (0.10-0.60); BASOPHIL % 0.7 % (0.0-2.0); EOSINOPHIL % 3.4 % (0-5); GRANULOCYTE % 60.5 % (42.2-75.2); HEMATOCRIT 26.5 % (37-47); MEAN CORPUSCULAR HGB 30.2 PG (27.0-31.0); MEAN CORPUSCULAR HGB CONC 33.4 G/DL (33.0-37.0); MEAN CORPUSCULAR VOLUME 90.7 FL (81.0-99.0); MEAN PLATELET VOLUME 7.1 FL (7.4-10.4); PLATELET COUNT 351 /CUMM (130-400); RED BLOOD CELL CT 2.93 /CUMM (4.20-5.40)
--- NOTE | 2016-05-04 17:15 | RADIOLOGY REPORT ---
EXAMINATION: XR PORTABLE CHEST CLINICAL INFORMATION: Cough. Evaluate for pneumonia. COMPARISON: CTA chest 04/20/2016. TECHNIQUE: Portable AP view of the chest was obtained. FINDINGS: Single AP view of the chest is slightly limited secondary to patient rotation. There is blunting of the bilateral costophrenic angles, indicative of small bilateral pleural effusions. There is focal airspace consolidation within the right lung base, which could reflect atelectasis or infection in the appropriate clinical setting. Cardiomediastinal contours are stable. There is stable prominence of the cardiac silhouette, without overt pulmonary edema. No pneumothoraces. No acute osseous or soft tissue abnormality. IMPRESSION: Small bilateral pleural effusions. Right basilar opacification is nonspecific and could reflect atelectasis given overlying pleural effusion although consolidation secondary to pneumonia cannot be excluded in the appropriate clinical setting. Consider correlation with PA and lateral chest x-ray.
[2016-05-04 17:35] LABS: PT 12.8 SEC (9.4-12.5); PTT 29 SEC (25-37)
--- NOTE | 2016-05-04 19:22 | CT SCAN REPORT ---
EXAMINATION: CT ABDOMEN AND PELVIS WITHOUT CONTRAST CLINICAL INFORMATION: Questionable small bowel obstruction on x-ray performed at an outside facility. COMPARISON: CT abdomen and pelvis with contrast 03/07/2016. TECHNIQUE: Multidetector volumetric imaging was performed from the superior aspect of the liver through the pubic symphysis. Sagittal and coronal reformatted images were obtained on the technologist's workstation. DLP: 239 mGy-cm. FINDINGS: Limited evaluation of the solid abdominal viscera in the absence of intravenous contrast. LUNG BASES: Evaluation of the included lung bases demonstrates bilateral pleural effusions, small in volume on the right and trace in volume on the left. There is right basilar airspace consolidation which could reflect aspiration pneumonitis, infection or atelectasis. No significant pericardial effusion is identified. LIVER, GALLBLADDER, AND BILIARY TREE: The liver is normal in size, shape, and attenuation. No contour deforming hepatic lesion or biliary ductal dilatation is present. The gallbladder is surgically absent. PANCREAS: Unremarkable. SPLEEN: Unremarkable. ADRENAL GLANDS: Unremarkable. KIDNEYS AND URETERS: Evaluation of the bilateral kidneys and renal collecting systems is notable for hyperdense lesions along the upper pole of the left kidney and the lower pole of the right kidney visualized measuring up to 9 mm in length. These likely reflect complex renal cortical cysts with internal proteinaceous/hemorrhagic debris. There is a punctate 1 mm nonobstructing stone within the midpole of the left kidney. There are no visible ureteral stones and there is no appreciable hydroureteronephrosis of either kidney or renal collecting system. BLADDER: Unremarkable. GASTROINTESTINAL TRACT: Normal anatomic orientation of the stomach relative to the duodenum. Normal caliber of abdominal and pelvic bowel loops, without evidence of obstruction or ileus. Postsurgical changes related to prior distal colonic surgery and anastomosis. The anastomotic sites within the left kidney pelvis appears grossly patent. Nonvisualization of the appendix. No acute inflammatory changes within the right lower quadrant of the abdomen. No organizing intra-abdominal fluid collections or free intraperitoneal air. ABDOMINAL WALL: No significant hernia is appreciated. LYMPH NODES: No significant abdominal or pelvic adenopathy. VASCULAR: Normal course and caliber of the abdominal aorta and its branching vessels, without aneurysmal dilatation. Limited evaluation for vascular patency in the absence of intravenous contrast. Scattered atherosclerosis of the abdominal aorta and its branching vessels. PELVIC VISCERA: Status post hysterectomy. No visible adnexal masses. OSSEOUS STRUCTURES: Diffuse demineralization of the visualized bones. Chronic appearing compression deformity involving the L5 vertebral body with approximately 50% disc height loss centrally and evidence of prior vertebroplasty. No visible acute osseous abnormalities. Remote fracture involving the left inferior pubic ramus. No destructive osseous lesions. IMPRESSION: 1. Limited exam secondary to lack of intravenous or oral contrast. Limited evaluation of the solid abdominal viscera. Bilateral pleural effusions, right greater than left, with overlying right basilar consolidation. This may be secondary to atelectasis although superimposed infection or aspiration pneumonitis cannot be excluded in the appropriate clinical setting. 2. Postsurgical changes related to prior distal colonic surgery and anastomosis. Normal caliber of abdominal and pelvic bowel loops, without findings suggestive of small bowel obstruction.
[2016-05-04 19:55] VITALS: BP 119/77
== END 2016-05-04 20:51 ==
LOC: ERH 15:45
PROVIDERS: Physician Assistant
DX: J18.9 Pneumonia, unspecified organism (principal); I10 Essential (primary) hypertension; I48.91 Unspecified atrial fibrillation; Z86.73 Personal history of transient ischemic attack (TIA), and cerebral infarction without residual deficits
CPT/HCPCS: 74176; 87040; 87045; 93005; 93010; 96374; 96375; J0131

== ENCOUNTER 2016-08-17 10:08 | Inpatient (IN) | payer OTHER, MEDICARE ==
[~2016-08-17] VITALS: Ht 165.1 cm; Wt 56.7 kg
--- NOTE | 2016-08-17 10:14 | ED UPPER/LOWER EXTREMITY COMPL ---
History of Present Illness General Chief Complaint: General Adult Stated Complaint: BIBA R KNEE PAIN Source: patient, old records, EMS Exam Limitations: no limitations Vital Signs & Intake/Output Vital Signs & Intake/Output Vital Signs Date Time Temp Pulse Resp B/P B/P Pulse O2 O2 Flow FiO2 Mean Ox Delivery Rate 08/17 1459 97.5 116 18 124/58 98 Room Air 08/17 1324 97.7 98 18 127/85 97 Room Air 08/17 1020 97.2 100 16 122/62 96 Room Air 08/17 1018 98 Room Air Allergies Coded Allergies: Sulfa (Sulfonamide Antibiotics) (HIVES 11/13/15) cyclobenzaprine (Severe, LIGHTHEADED 11/13/15) nitrofurantoin (Severe, SWEATING, DIZZY, RED ALL OVER, SHAKING 11/13/15) codeine (GI 11/13/15) mushroom (DIZZY 11/13/15) Reconcile Medications Aspirin (Aysha Aspirin Regimen) 81 MG ECT 2 TAB PO DAILY HEART (Reported) Atorvastatin Calcium (Lipitor) 10 MG TAB 1 TAB PO DAILY CHOLESTEROL (Reported ) Bisacodyl (Dulcolax) 5 MG TABLET.DR 2 TAB PO DAILY GI (Reported) Cholecalciferol (Vitamin D3) 1,000 IU TAB 1 TAB PO DAILY SUPPLEMENT Hydromorphone HCl 4 MG TABLET 1 TAB PO TID PRN PAIN (Reported) Hydromorphone HCl 2 MG TABLET 1 TAB PO QHS PRN PAIN (Reported) Levothyroxine Sodium 50 MCG TABLET 1 TAB PO DAILY THYROID (Reported) Lidocaine (Lidoderm) 5 % ADH..PATCH 1 PAT EXT DAILY back pain apply 1-2 patch on the back for pain Lorazepam 0.5 MG TABLET 1 TAB PO DAILY NEEDED ANXIETY (Reported) Meclizine HCl 25 MG TABLET 1 TAB PO TIDPRN DIZZY (Reported) Metoprolol Tartrate 50 MG TABLET 2 TAB PO BID heart health Moxifloxacin HCl 400 MG TABLET 400 MG PO DAILY BRONCHITIS Triage Nurses Notes Reviewed? yes HPI: Patient brought in for increasing pain to her right leg as well as her left knee. Patient states she has chronic pain in both those areas but it is been getting worse. Patient states that it hurts to walk around. Patient states he is able to get up and walk around and walked to the kitchen as well as the bathroom. Patient states that her legs are chronically swollen. There are no fevers or chills. The pain is achy pain. She rates the pain as 7 out of 10. Pain increases with ambulation. Past History Travel History Traveled to [place] past 21 day No Medical History Any Pertinent Medical History? see below for history Neurological: NONE (left-sided), CVA EENT: benign positional vertigo Cardiovascular: AFIB, hypertension Respiratory: NONE Gastrointestinal: GERD Hepatic: NONE Renal: NONE Musculoskeletal: osteoarthritis, osteoporosis, rheumatoid arthritis, L SCAPULA FX status post vertebroplasty Psychiatric: anxiety Endocrine: hypothyroidism Blood Disorders: DEHYDRATION Cancer(s): NONE CUE WORKER/Reproductive: NONE History of MRSA: No History of VRE: No History of CDIFF: No Surgical History Surgical History: appendectomy, cholecystectomy, hysterectomy, knee replacement (left knee), status post venous stripping status post bilateral carpal tunnel surgeries Psychosocial History Who do you live with Patient/Self Services at Home Home Health Aide What is your primary language Guatemalan Tobacco Use: Never used ETOH Use: denies use Illicit Drug Use: denies illicit drug use Family History Family History, If Any: DAUGHTER FH: diabetes mellitus Hx Contributory? No Review of Systems Review of Systems Constitutional: Reports: no symptoms. Respiratory: Reports: no symptoms. Cardiovascular: Reports: no symptoms. Gastrointestinal/Abdominal: Reports: no symptoms. Musculoskeletal: Reports: see HPI. Neurological/Psychological: Reports: no symptoms. Hematologic/Endocrine: Reports: no symptoms. Immunological: Reports: no symptoms. Physical Exam Physical Exam General Appearance: well developed/nourished, alert, awake Head: atraumatic, normal appearance Eyes: Bilateral: PERRL, EOMI. Ears, Nose, Throat: normal pharynx, normal ENT inspection, hearing grossly normal Neck: normal inspection, supple, full range of motion Cardiovascular/Respiratory: normal breath sounds, normal peripheral pulses, regular rate/rhythm Leg Left: swelling Leg Right: swelling Neurologic/Tendon: normal sensation, normal motor functions, normal tendon functions Lymphatic: no anterior cervical savanah Progress Differential Diagnosis: contusion, DVT, fracture, sprain Plan of Care: Orders Procedure Date/time Status Regular Diet 08/17 D Active Admit to inpatient 08/17 1517 Active Patient Data 08/17 1509 Active URINALYSIS 08/17 1013 Complete COMPREHENSIVE METABOLIC PANEL 08/17 1013 Complete CBC WITHOUT DIFFERENTIAL 08/17 1013 Complete Laboratory Tests 08/17/16 1207: Urinalysis LIGHT H, Urine Color YEL, Urine Clarity HAZY H, Urine pH 6.0, Ur Specific [place] 1.020, Urine Protein TRACE H, Urine Ketones NEG, Urine Nitrite NEG, Urine Bilirubin NEG, Urine Urobilinogen 0.2, Ur Leukocyte Esterase TRACE H , Ur Microscopic SEDIMENT EXAMINED, Urine RBC RARE, Urine WBC 1-3 H, Ur Epithelial Cells RARE, Urine Bacteria MANY H, Hyaline Casts RARE H, Micro UA Comment BUDDING YEAST H, Urine Hemoglobin NEG, Urine Glucose NEG 08/17/16 1039: Anion Gap 11, Estimated GFR 60, BUN/Creatinine Ratio 43.3 H, Glucose 84, Calcium 8.7, Total Bilirubin 0.8, AST 38 H, ALT 38, Alkaline Phosphatase 71, Total Protein 6.8, Albumin 3.9, Globulin 2.9, Albumin/Globulin Ratio 1.3, CBC w Diff NO MAN DIFF REQ, RBC 2.98 L, MCV 94.4, MCH 31.9 H, RDW 15.1 H, MPV 6.7 L, Gran % 41.9 L, Lymphocytes % 34.6, Monocytes % 12.9 H, Eosinophils % 9.7 H , Basophils % 0.9, Absolute Granulocytes 1.6, Absolute Lymphocytes 1.3, Absolute Monocytes 0.5, Absolute Eosinophils 0.4, Absolute Basophils 0, PUBS MCHC 33.7 Diagnostic Imaging: Viewed by Me: Ultrasound. Discussed w/RAD: Ultrasound. Radiology Impression: PATIENT: ARMAAN REED PRESENT AGE: 86 PATIENT ACCOUNT NO: [id number] : 31 LOCATION: [facility] ORDERING PHYSICIAN: XIN BARBER MD SERVICE DATE: 08/17/16 EXAM TYPE: US - US-DUPLEX VENOUS EXTREM UNI EXAMINATION: US TRIPLEX LOWER EXTREMITY, RIGHT CLINICAL INFORMATION: This 86-year-old female with right lower extremity pain and swelling. COMPARISON: None TECHNIQUE: Color-flow triplex imaging with spectral analysis and compression Doppler were performed on the lower extremity. FINDINGS: Respiratory variation, normal compression and augmented flow are noted throughout the left lower extremity. The visualized common femoral vein, superficial femoral vein, profunda femoral vein, popliteal vein and midcalf peroneal and posterior tibial venous segments show no evidence of deep venous thrombosis. There is no Ruvalcaba's cyst. Subcutaneous edema is present. IMPRESSION: 1. There is no evidence of deep vein thrombosis. 2. Subcutaneous edema is noted. DICTATED BY: JELENA GUIDRY MD DATE/TIME DICTATED:08/17/161247 CHARGEBACK SPECIALIST:NARINDER DATE/TIME TRANSCRIBED:08/17/161247 CONFIDENTIAL, DO NOT COPY WITHOUT APPROPRIATE AUTHORIZATION. <Electronically signed in Other Vendor System> SIGNED BY: JELENA GUIDRY MD 08/17/16 1253, PATIENT: ARMAAN REED PRESENT AGE: 86 PATIENT ACCOUNT NO: [id number] : 31 LOCATION: [facility] ORDERING PHYSICIAN: XIN BARBER MD SERVICE DATE: 08/17/16 EXAM TYPE: RAD - XRY-KNEE COMPLETE RIGHT EXAMINATION: XR KNEE, RIGHT CLINICAL INFORMATION: Pain COMPARISON: Right knee radiography 10/05/2015. TECHNIQUE: Four views of the right knee. FINDINGS: Decreased bone mineral density. No fracture or dislocation. Severe lateral tibiofemoral compartment cartilage space narrowing. Moderate medial tibiofemoral compartment cartilage space during. Tricompartmental osteophyte formation. No large knee joint effusion. Subcutaneous edema/soft tissue swelling diffusely about the visualized portion of the right lower extremity. IMPRESSION: 1. No acute osseous abnormality demonstrated. 2. Right knee osteoarthritis, severe in the lateral tibiofemoral compartment. DICTATED BY: CARLOS KYLE MD DATE/TIME DICTATED:08/17/161409 CHARGEBACK SPECIALIST:NARINDER DATE/TIME TRANSCRIBED:1409 CONFIDENTIAL, DO NOT COPY WITHOUT APPROPRIATE AUTHORIZATION. < Electronically signed in Other Vendor System> SIGNED BY: CARLOS KYLE MD 08/17/16 1370 Comments: Attempted to ambulate the patient in the emergency department. Patient was unable to put any weight on her right leg. Patient states that the pain is just all over. The patient could not even take one step with these with a walker. Her pelvis is stable. She has full range of motion of the hip. Patient has full range of motion at the knee and the ligaments are stable. She is full range of motion at the ankle. Departure Departure Disposition: STILL A PATIENT Condition: Stable Clinical Impression Primary Impression: Leg pain Qualifiers: Laterality: bilateral Qualified Codes: M79.604 - Pain in right leg; M79.605 - Pain in left leg Secondary Impressions: Multifactorial gait disorder Referrals: GEOVANNA SHAIKH,WALDEMAR Monet (PCP/Family) Additional Instructions: RETURN IF SYMPTOMS WORSEN OR FOR ANY CONCERNS Departure Forms: Customer Survey General Discharge Information Admission Note Spoke With: GORDO SHAIKH,TRAVIS Documentation of Exam: Documentation of any treatments & extenuating circumstances including Concerns Regarding Discharge (functional status, medication knowledge or non-compliance, living conditions, etc.) that warrant an admission rather than observation: [ Patient is at high risk to go home since she is unable to even get up off the stretcher so she would not be able to get to the bathroom or to the kitchen to care for self. Patient will acquire admission to the hospital with physical therapy evaluation, pain control, orthopedic consultation.]
--- NOTE | 2016-08-17 10:18 | NUR ---
86 Y/0 FEMALE BIBA FOR EVAL OF R KNEE PAIN, "FOR A WHILE". PER EMS, PT HAD VISITING NURSE ON SCENE WHO REPORTED PT WAS C/O KNEE MORE THAN USUAL SO EMS WAS CALLED. PT ARRIVES A/O X 4, SPEAKING CLEARLY WITH NO DEFICITS. BILATERAL LEGS NOTED TO BE SWOLLEN ALL THE WAY UP INTO THIGHS. PT STATES BOTH LEGS "FEEL NUMB". PT DENIES RECENT INJURIES OR FALLS. MD BARBER TO EVAL.
--- NOTE | 2016-08-17 10:27 | NUR ---
PT RESTING ON STRETCHER COMPLAINS OF INCREASED PAIN TO BLE, EDEMA NOTED, PT STATES THAT PAIN IS WORSE IN R LEG. MEDICATED WITH TORADOL PER ORDER
--- NOTE | 2016-08-17 10:41 | NUR ---
BLOOD DRAWN AND SENT TO LAB BY THIS [facility]. SST/LAV
[2016-08-17 11:13] LABS: ABSOLUTE BASOPHIL COUNT 0 /CUMM (0.0-0.2); ABSOLUTE EOSINOPHIL COUNT 0.4 /CUMM (0.0-0.7); ABSOLUTE GRANULOCYTE CT 1.6 /CUMM (1.4-6.5); ABSOLUTE LYMPH COUNT 1.3 /CUMM (1.2-3.4); ABSOLUTE MONOCYTE COUNT 0.5 /CUMM (0.10-0.60); BASOPHIL % 0.9 % (0.0-2.0); EOSINOPHIL % 9.7 % (0-5); GRANULOCYTE % 41.9 % (42.2-75.2); HEMATOCRIT 28.2 % (37-47); MEAN CORPUSCULAR HGB 31.9 PG (27.0-31.0); MEAN CORPUSCULAR HGB CONC 33.7 G/DL (33.0-37.0); MEAN CORPUSCULAR VOLUME 94.4 FL (81.0-99.0); MEAN PLATELET VOLUME 6.7 FL (7.4-10.4); PLATELET COUNT 292 /CUMM (130-400); RBC DISTRIBUTION WIDTH 15.1 % (11.5-14.5); RED BLOOD CELL CT 2.98 /CUMM (4.20-5.40); WHITE BLOOD CELL COUNT 3.8 /CUMM (4.8-10.8)
--- NOTE | 2016-08-17 11:18 | NUR ---
PT RESTING ON STRETCHER , STATES THAT PAIN HAS DECREASED SINCE MEDICATIONS. HR 88 AND NSR ON MONITOR
--- NOTE | 2016-08-17 12:00 | NUR ---
PT AMBULATED TO BATHROOM WITH WALKER AND STAFF .
--- NOTE | 2016-08-17 12:07 | NUR ---
PT TO US VIA STRETCHER
--- NOTE | 2016-08-17 12:12 | NUR ---
URINE TRIO COLLECTED AND SEND TO LAB BY THIS [facility]
--- NOTE | 2016-08-17 12:53 | ULTRASOUND REPORT ---
EXAMINATION: US TRIPLEX LOWER EXTREMITY, RIGHT CLINICAL INFORMATION: This 86-year-old female with right lower extremity pain and swelling. COMPARISON: None TECHNIQUE: Color-flow triplex imaging with spectral analysis and compression Doppler were performed on the lower extremity. FINDINGS: Respiratory variation, normal compression and augmented flow are noted throughout the left lower extremity. The visualized common femoral vein, superficial femoral vein, profunda femoral vein, popliteal vein and midcalf peroneal and posterior tibial venous segments show no evidence of deep venous thrombosis. There is no Ruvalcaba's cyst. Subcutaneous edema is present. IMPRESSION: 1. There is no evidence of deep vein thrombosis. 2. Subcutaneous edema is noted.
--- NOTE | 2016-08-17 13:19 | NUR ---
PT UNABLE TO AMBULATE AT THIS TIME WITH STAFF, STATES THAT SHE CAN'T BARE WEIGHT ON HER R KNEE. DR BARBER AT BEDSIDE , PT TO HAVE XRAY
--- NOTE | 2016-08-17 14:28 | RADIOLOGY REPORT ---
EXAMINATION: XR KNEE, RIGHT CLINICAL INFORMATION: Pain COMPARISON: Right knee radiography 10/05/2015. TECHNIQUE: Four views of the right knee. FINDINGS: Decreased bone mineral density. No fracture or dislocation. Severe lateral tibiofemoral compartment cartilage space narrowing. Moderate medial tibiofemoral compartment cartilage space during. Tricompartmental osteophyte formation. No large knee joint effusion. Subcutaneous edema/soft tissue swelling diffusely about the visualized portion of the right lower extremity. IMPRESSION: 1. No acute osseous abnormality demonstrated. 2. Right knee osteoarthritis, severe in the lateral tibiofemoral compartment.
--- NOTE | 2016-08-17 15:00 | NUR ---
PT UNABLE TO VERIFY HOME MEDS
--- NOTE | 2016-08-17 15:08 | History & Physical ---
See Addendum TOMMY JEAN MD 08/17/16 1507: General Information and HPI MD Statement: I have seen and personally examined ARMAAN REED and documented this H&P. The patient is a 86 year old F who presented with a patient stated chief complaint of [RIGHT KNEE PAIN]. Source of Information: patient, family Exam Limitations: no limitations History of Present Illness: 86-year-old female with PMH atrial fibrillation with RVR not on anticoagulation, hypertension, hypothyroidism, osteoarthritis, rheumatoid arthritis, presented to the ED for worsening right knee pain. She has had chronic joint pain and has been diagnosed with osteoarthritis and rheumatoid arthritis (not on prednisone). The night prior to admission, she started having worsening right knee pain, described as achy, sometimes radiating down her leg, exacerbated by movement of her right foot, for which she took tylenol ([id number]) without significant relief, bringing her to the ED for further evaluation for possible DVT, which was negative. She denies trauma. Her ROM was very limited (only about 15 degrees flexion) for both knees on passive and active ROM. It is limited due to pain. She has chronic bilateral 3+ edema up to mid thighs, for which she keeps insisting "it is not swollen, it is just FAT". However, she did report that the ankle swelling seems worse than her baseline. She denies shortness of breath, she sleeps flat on 1 pillow, denies orthopnea. She was noticably upset about being admitted to the hospital because she wants to be home. She especially does not like the idea of having to go to rehab if she is not able to ambulate with her walker on her own. She lives by herself and she has her daughter and girlfriend help her with some cleaning. Otherwise, she ambulates independently with a walker, administer her own meds (although she appeared very frustrated when asked to verify her home med list). She insists that she knows what she takes at home. [place] [facility] [place]. Allergies/Medications Allergies: Coded Allergies: Sulfa (Sulfonamide Antibiotics) (HIVES 11/13/15) cyclobenzaprine (Severe, LIGHTHEADED 11/13/15) nitrofurantoin (Severe, SWEATING, DIZZY, RED ALL OVER, SHAKING 11/13/15) codeine (GI 11/13/15) mushroom (DIZZY 11/13/15) Home Med list Amlodipine Besylate 5 MG TABLET 1 TAB PO DAILY HIGH BLOOD PRESSURE (Reported) Atorvastatin Calcium (Lipitor) 10 MG TAB 1 TAB PO DAILY CHOLESTEROL (Reported ) Bisacodyl (Dulcolax) 5 MG TABLET.DR 2 TAB PO DAILY GI (Reported) Cholecalciferol (Vitamin D3) 1,000 IU TAB 1 TAB PO DAILY SUPPLEMENT Gabapentin 100 MG CAPSULE 1 CAP PO TID ANXIETY (Reported) Hydroxyzine Pamoate 25 MG CAPSULE 1 CAP PO BID ANXIETY (Reported) Levothyroxine Sodium 50 MCG TABLET 1 TAB PO DAILY THYROID (Reported) Metoprolol Tartrate 25 MG TABLET 1 TAB PO BID Atrial fibrillation (Reported) Past History Travel History Traveled to [place] past 21 day No Medical History Neurological: NONE (left-sided), CVA EENT: benign positional vertigo Cardiovascular: AFIB, hypertension Respiratory: NONE Gastrointestinal: GERD Hepatic: NONE Renal: NONE Musculoskeletal: osteoarthritis, osteoporosis, rheumatoid arthritis, L SCAPULA FX status post vertebroplasty Psychiatric: anxiety Endocrine: hypothyroidism Blood Disorders: DEHYDRATION Cancer(s): NONE 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 Home Who Do You Live With? self Services at Home: Home Health Aide ETOH Use: denies use Illicit Drug Use: denies illicit drug use Functional Ability ADLs Independent: dressing, eating, toileting. Needs Assist: bathing. Ambulation: walker IADLs Independent: telephone, medication admin. Needs Assist: shopping, housework, finances, food prep, transportation. Review of Systems Review of Systems Constitutional: Reports: unexplained weight loss (lack of appetite ). Denies: chills, fever. EENTM: Denies: visual changes. Cardiovascular: Reports: palpitations, peripheral edema. Denies: chest pain, orthopena. Respiratory: Denies: cough, short of breath, sputum production. GI: Denies: abdominal pain, bloating, constipation, diarrhea. Genitourinary: Denies: dysuria. Exam & Diagnostic Data Last 24 Hrs of Vital Signs/I&O Vital Signs Date Time Temp Pulse Resp B/P B/P Pulse O2 O2 Flow FiO2 Mean Ox Delivery Rate 08/17 1459 97.5 116 18 124/58 98 Room Air 08/17 1324 97.7 98 18 127/85 97 Room Air 08/17 1020 97.2 100 16 122/62 96 Room Air 08/17 1018 98 Room Air Intake & Output 08/17 1600 08/17 0800 08/17 0000 Intake Total Output Total Balance Patient 54.431 kg Weight Weight Reported by Patient Measurement Method Physical Exam General Appearance Alert, Oriented X3, Cooperative, No Acute Distress Skin right hand more red compared to left HEENT Atraumatic, Mucous Membr. moist/pink Neck No JVD, +2 Carotid Pulse wo Bruit Cardiovascular irregularly irregular rate Lungs Clear to Auscultation, Normal Air Movement Abdomen Normal Bowel Sounds, Soft, No Tenderness Extremities 3+ bilateral pitting edema up to mid thigh. appears red non tender , 15 degreees ROM on knee flexion bilaterally. rom limited due to pain Vascular radial pulse normal difficult to assess pulses on the feet due to edema , normal cap refill Last 24 Hrs of Labs/Karel: Laboratory Tests 08/17/16 1207: Urinalysis LIGHT H, Urine Color YEL, Urine Clarity HAZY H, Urine pH 6.0, Ur Specific [place] 1.020, Urine Protein TRACE H, Urine Ketones NEG, Urine Nitrite NEG, Urine Bilirubin NEG, Urine Urobilinogen 0.2, Ur Leukocyte Esterase TRACE H , Ur Microscopic SEDIMENT EXAMINED, Urine RBC RARE, Urine WBC 1-3 H, Ur Epithelial Cells RARE, Urine Bacteria MANY H, Hyaline Casts RARE H, Micro UA Comment BUDDING YEAST H, Urine Hemoglobin NEG, Urine Glucose NEG 08/17/16 1039: Anion Gap 11, Estimated GFR 60, BUN/Creatinine Ratio 43.3 H, Glucose 84, Calcium 8.7, Total Bilirubin 0.8, AST 38 H, ALT 38, Alkaline Phosphatase 71, Total Protein 6.8, Albumin 3.9, Globulin 2.9, Albumin/Globulin Ratio 1.3, CBC w Diff NO MAN DIFF REQ, RBC 2.98 L, MCV 94.4, MCH 31.9 H, RDW 15.1 H, MPV 6.7 L, Gran % 41.9 L, Lymphocytes % 34.6, Monocytes % 12.9 H, Eosinophils % 9.7 H , Basophils % 0.9, Absolute Granulocytes 1.6, Absolute Lymphocytes 1.3, Absolute Monocytes 0.5, Absolute Eosinophils 0.4, Absolute Basophils 0, PUBS MCHC 33.7 Assessment/Plan Assessment: 86-year-old female with PMH atrial fibrillation with RVR not on anticoagulation, hypertension, hypothyroidism, osteoarthritis, rheumatoid arthritis, presented to the ED for worsening right knee pain. # Right knee pain * PT consult, might need to go to rehab, although pt strongly resists # Atrial fibrillation with RVR # Hypertension # HLD * Continue metoprolol tatrate 25mg bid * Continue amlodipine 5 mg daily * Continue atorvastatin 10 mg daily * Continue aspirin # Hypothyroidism * Continue home meds levothyroxine 50 mcg daily # Anxiety * hydroxyzine 25 mg, 1 tab bid, not on lorazepam anymore * gabapentin 100 mg tid Diet: Heart healthy DVT ppx: mech and pharm FULL CODE As Ranked By This Provider Problem List: 1. Leg pain Qualifiers Laterality: bilateral Qualified Codes: M79.604 - Pain in right leg; M79.605 - Pain in left leg Core Measures/Miscellaneous Acute Coronary Syndrome ACS Diagnosis: No Cerebrovascular Accident CVA/TIA Diagnosis: No Congestive Heart Failure CHF Diagnosis: No Venous Thromboembolism VTE Risk Factors: Age > 40 No Mech VTE prophylaxis d/t: No contraindications No VTE Pharm Prophylaxis d/t: No contraindications VTE Diagnosis: No VTE Type: NONE VTE Confirmed by (Test): NONE Severe Sepsis Severe Sepsis Present: No Septic Shock Septic Shock Present: No Miscellaneous Documentation Attending Case Discussed With: GORDO SHAIKH,[facility] Primary Care Physician: WALDEMAR AUSTIN MD Patient sees these Specialists Dr Davila cardiology Level of Patient Care: General Medicine JOSELO SHAIKHJERRICA 08/17/16 1534: General Information and HPI MD Statement: Resident Review Statement Resident Statement: examined this patient, discussed with credit intern, agreed with credit intern, reviewed EMR data (avail), reviewed images Other Findings: 86 YO F with PMH of atrial fibrilliation only on rate control (not on AC due to hx of falls and GI bleed), hypothyroidism, HTN, OA and RA who presents with severe (8-9/10) pain in her Rt knee since last night resulting in being unable to ambulate. She has been taking 1 tab of tylenol every 4 hrs for the pain with only minimal relief. She denies a fever/chills, SOB, joint/leg swelling, rash, recent fall or trauma to her Rt knee but she reports a loss of appetite and small amount weight loss recently. She also complains of mild joint pains in her hands as well. She ambulates using a walker at home and is independent of all her ADLs. She lives alone and gets help from her daughter and girl friend ocassionally. She reports that does not want to go to STR. Vitals-T-97.5; BP 124/58; RR 18; HR-116, O2 sat 98 on RA Knee xray-Severe Rt knee OA; Dopplers neg for DVT Negative O/E-AAOx 3, no JVD, irregularly irregular HR, no crackles or wheezing, non- tender abdomen with normal BS, 3+ pitting pedal edema bilaterally-up to the mid thighs, Rt knee tender with reduced range of motion due to pain. Rt knee joint not red or warm, no noticeble rash and not more swollen that the left Ass- -Severe pain and difficulty ambulating due to Rt Knee OA -Afib with RVR Plan Admit to [facility] PT evaluation- she will likely need STR placement 20mg po lasix x 1 for edema Keep legs elevated as much as possible Pain mgt-Po tylenol, PO dilaudid, IV dialudid Stool softners Consider Ortho evaluation Continue current home meds Monitor I/Os Check labs in am Heart healthy diet Mech. and SC lovenox for DVT ppx FC
[2016-08-17] MEDS ORDERED: METOPROLOL TART25 M1 PO (16:33)
[2016-08-17] MEDS ORDERED: AMLODIPINE BESYL5 M1 PO (16:34)
[2016-08-17] MEDS ORDERED: GABAPENTIN100 M2 PO (16:34)
[2016-08-17] MEDS ORDERED: HYDROXYZINE PAM25 M2 PO (16:35)
--- NOTE | 2016-08-17 16:41 | NUR ---
PT GOING TO ROOM 215-2.
--- NOTE | 2016-08-17 16:55 | NUR ---
PT REFUSING TO CHANGE INTO HOSPITAL GOWN
--- NOTE | 2016-08-17 16:57 | NUR ---
pt refusing IV
--- NOTE | 2016-08-17 17:16 | NUR ---
PT STATES SHE DIDN'T TAKE HER HOME MEDS TODAY. UNABLE TO VERIFY MED REC WITH PT, PT REFUSING TO GO OVER DAILY MEDS WITH THIS RN
--- NOTE | 2016-08-17 17:23 | PN- Att Addend ---
Attending Addendum Attending Brief Note 86-year-old female with past medical history significant for atrial fibrillation with RVR not on anticoagulation, hypertension, hypothyroidism, osteoarthritis, rheumatoid arthritis, presented to the emergency room with worsening right knee pain. Patient has chronic knee pain but it has been getting worse. It is worse with movement. She took some Tylenol but that did not help. Her legs are also more swollen. She came into the emergency room because she was not able to manage her pain and it was difficult for her to ambulate. Vital Signs Date Time Temp Pulse Resp B/P B/P Pulse O2 O2 Flow FiO2 Mean Ox Delivery Rate 08/17 1703 96.6 115 18 129/67 98 Room Air 08/17 1459 97.5 116 18 124/58 98 Room Air 08/17 1324 97.7 98 18 127/85 97 Room Air 08/17 1020 97.2 100 16 122/62 96 Room Air 08/17 1018 98 Room Air on exam; aox3, nad. cv; s1,s2, irregular resp; clear abd; soft, nt, bs+ ext; 2+ edema. Right knee is swollen but no signs of infection. Laboratory Tests 08/17 08/17 1207 1039 Chemistry Sodium (137 - 145 mmol/L) 138 Potassium (3.5 - 5.1 mmol/L) 4.9 Chloride (98 - 107 mmol/L) 108 H Carbon Dioxide (22 - 30 mmol/L) 19 L Anion Gap (5 - 16) 11 BUN (7 - 17 mg/dL) 39 H Creatinine (0.5 - 1.0 mg/dL) 0.9 Estimated GFR (>60 ml/min) 60 BUN/Creatinine Ratio (7 - 25 %) 43.3 H Glucose (65 - 99 mg/dL) 84 Calcium (8.4 - 10.2 mg/dL) 8.7 Total Bilirubin (0.2 - 1.3 mg/dL) 0.8 AST (14 - 36 U/L) 38 H ALT (9 - 52 U/L) 38 Alkaline Phosphatase (<127 U/L) 71 Total Protein (6.3 - 8.2 g/dL) 6.8 Albumin (3.5 - 5.0 g/dL) 3.9 Globulin (1.9 - 4.2 gm/dL) 2.9 Albumin/Globulin Ratio (1.1 - 2.2 %) 1.3 Hematology CBC w Diff NO MAN DIFF REQ WBC (4.8 - 10.8 /CUMM) 3.8 L RBC (4.20 - 5.40 /CUMM) 2.98 L Hgb (12.0 - 16.0 G/DL) 9.5 L Hct (37 - 47 %) 28.2 L MCV (81.0 - 99.0 FL) 94.4 MCH (27.0 - 31.0 PG) 31.9 H RDW (11.5 - 14.5 %) 15.1 H Plt Count (130 - 400 /CUMM) 292 MPV (7.4 - 10.4 FL) 6.7 L Gran % (42.2 - 75.2 %) 41.9 L Lymphocytes % (20.5 - 51.1 %) 34.6 Monocytes % (1.7 - 9.3 %) 12.9 H Eosinophils % (0 - 5 %) 9.7 H Basophils % (0.0 - 2.0 %) 0.9 Absolute Granulocytes (1.4 - 6.5 /CUMM) 1.6 Absolute Lymphocytes (1.2 - 3.4 /CUMM) 1.3 Absolute Monocytes (0.10 - 0.60 /CUMM) 0.5 Absolute Eosinophils (0.0 - 0.7 /CUMM) 0.4 Absolute Basophils (0.0 - 0.2 /CUMM) 0 PUBS MCHC (33.0 - 37.0 G/DL) 33.7 Urines Urinalysis LIGHT H Urine Color (YEL,AMB,STR) YEL Urine Clarity (CLEAR) HAZY H Urine pH (5.0 - 8.0) 6.0 Ur Specific Brillion (1.001 - 1.035) 1.020 Urine Protein (NEG,<30 MG/DL) TRACE H Urine Ketones (NEG) NEG Urine Nitrite (NEG) NEG Urine Bilirubin (NEG) NEG Urine Urobilinogen (0.1 - 1.0 EU/dl) 0.2 Ur Leukocyte Esterase (NEG) TRACE H Ur Microscopic SEDIMENT EXAMINED Urine RBC (0 - 5 /HPF) RARE Urine WBC (0 - 2 /HPF) 1-3 H Ur Epithelial Cells (NONE,FEW) RARE Urine Bacteria (NEG/NONE) MANY H Hyaline Casts (0/LPF) RARE H Micro UA Comment BUDDING YEAST H Urine Hemoglobin (NEG) NEG Urine Glucose (N MG/DL) NEG Lower extremity Doppler ultrasound negative for DVT and knee x-ray shows osteoarthritis. A/P; 86-year-old female with past medical history significant for atrial fibrillation with RVR not on anticoagulation, hypertension, hypothyroidism, osteoarthritis, rheumatoid arthritis admitted with worsening/acute on chronic right knee pain and difficulty with ambulation. Patient will be admitted to medicine floor. Her pain can be managed with pain pathway. Please confirm and continue the rest of her home medications. She will be seen by physical therapy and might need to be placed in a rehabilitation. DVT px: Lovenox Full code.
[2016-08-17 23:05] VITALS: BP 96/58
[2016-08-18 06:47] VITALS: BP 130/72
--- NOTE | 2016-08-18 07:51 | PN- Housestaff ---
See Addendum Subjective Follow-up For: right knee pain Subjective: Pt continues to report pain to right knee, she is concerned because this is worse than her chronic pain. I was able to examine her lower extremities better today, the right knee is more edematous than the left, rom was about 10 degrees on right knee flexion, compared to 20 degrees on left knee flexion, limited due to pain. Dr. Murphy was consulted, and recc RICE - rest , ice, compression, elevation. Also considered toradol 15 Q 8 scheduled for pain control. HOWEVER PATIENT HAS BEEN REFUSING IV PLACEMENT, refuses, alps, refuses elevation. PT recc STR. Review of Systems Constitutional: Reports: see HPI. Objective Last 24 Hrs of Vital Signs/I&O Vital Signs Date Time Temp Pulse Resp B/P B/P Pulse O2 O2 Flow FiO2 Mean Ox Delivery Rate 08/18 0907 86 132/68 08/18 0907 86 132/68 08/18 0647 96.8 88 20 130/72 97 Room Air 08/17 2305 97.9 98 20 96/58 94 Room Air 08/17 2143 83 118/64 08/17 1703 96.6 115 18 129/67 98 Room Air 08/17 1459 97.5 116 18 124/58 98 Room Air 08/17 1324 97.7 98 18 127/85 97 Room Air Intake & Output 08/18 1600 08/18 0800 08/18 0000 Intake Total 240 240 Output Total 1050 350 Balance -810 -110 Intake, Oral 240 240 Number 2 Bowel Movements Output, Urine 1050 350 Patient 56.699 kg Weight Physical Exam General Appearance: Alert, Oriented X3, Cooperative, Mild Distress Cardiovascular: irregular rate Lungs: Clear to Auscultation, Normal Air Movement Abdomen: Normal Bowel Sounds, Soft, No Tenderness Extremities: see hpi , edema improved bilateral extremities , rom very limited on right knee flexion due to pain. Current Medications: Current Medications Sig/Yessenia Start time Last Medication Dose Route Stop Time Status Admin Acetaminophen 650 MG Q6P PRN 08/17 1615 AC 08/18 PO 1133 Acetaminophen 0 .STK-MED ONE 08/17 1500 DC PO Acetaminophen 650 MG ONCE ONE 08/17 1445 DC PO 08/17 1446 Amlodipine Besylate 5 MG DAILY 08/18 1000 AC 08/18 PO 0907 Aspirin Buffered 81 MG DAILY 08/17 1552 AC 08/18 PO 0906 Atorvastatin Calcium 10 MG DAILY 08/17 1556 AC 08/18 PO 0906 Bisacodyl 10 MG DAILY 08/17 1552 AC 08/18 PO 0906 Docusate Sodium 100 MG DAILY 08/17 1617 AC 08/18 PO 0906 Enoxaparin Sodium 40 MG DAILY 08/17 1617 AC 08/18 SC 0907 Furosemide 20 MG ONCE ONE 08/17 1715 DC 08/17 PO 08/17 1716 1755 Gabapentin 100 MG Q8 08/17 1626 AC 08/18 PO 0522 Hydromorphone HCl 2 MG Q8P PRN 08/17 1645 AC 08/18 PO 0522 Hydromorphone HCl 0.5 MG Q6P PRN 08/17 1630 AC IV Hydromorphone HCl 2 MG .[QHS] PRN 08/17 1600 DC PO Hydromorphone HCl 4 MG Q8P PRN 08/17 1600 DC PO Hydroxyzine HCl 25 MG BID 08/17 2200 AC 08/18 PO 0906 Ketorolac 15 MG Q8 08/18 1400 AC Tromethamine IV Levothyroxine Sodium 0.05 MG DAILY AC 08/17 1550 AC 08/18 PO 0522 Metoprolol Tartrate 0 .STK-MED ONE 08/17 1708 DC PO Metoprolol Tartrate 25 MG BID 08/17 1556 AC 08/18 PO 0907 Miconazole Nitrate 1 CARMITA AT BEDTIME 08/17 2200 08/17 VAG 2353 Patient Medication 1 UNIT ONE NR 08/17 1645 NM 08/18 [facility] 08/17 1700 0800 Patient Medication 1 UNIT ONE NR 08/17 1645 NM 08/18 [facility] 08/17 1700 0800 Patient Medication 1 UNIT ONE NR 08/17 1645 NM 08/18 [facility] 08/17 1700 0800 Patient Medication 1 UNIT ONE NR 08/17 1645 NM 08/18 [facility] 08/17 1700 0801 Patient Medication 1 UNIT ONE NR 08/17 164 NM 08/18 [facility] 08/17 1700 0800 Last 24 Hrs of Lab/Karel Results Last 24 Hrs of Labs/Mics: Laboratory Tests 08/18/16 0626: Anion Gap 7, Estimated GFR 53 L, BUN/Creatinine Ratio 33.0 H, CBC w Diff NO MAN DIFF REQ, RBC 2.80 L, MCV 94.0, MCH 31.9 H, RDW 15.2 H, MPV 6.8 L, Gran % 46.0, Lymphocytes % 31.8, Monocytes % 11.3 H, Eosinophils % 10.0 H, Basophils % 0.9, Absolute Granulocytes 1.8, Absolute Lymphocytes 1.2, Absolute Monocytes 0.4, Absolute Eosinophils 0.4, Absolute Basophils 0, PUBS MCHC 33.9 Assessment/Plan Assessment: 86-year-old female with PMH atrial fibrillation with RVR not on anticoagulation due to recurrent fall and GI bleed (which pt denies), hypertension, hypothyroidism, osteoarthritis, rheumatoid arthritis, presented to the ED for worsening right knee pain. She was not able to bear weight on the right lower extremity, hence she was admitted for possibly rehab placement. PT has recommended rehab placement # Right knee pain - No acute osseous abnormality demonstrated. - Right knee osteoarthritis, severe in the lateral tibiofemoral compartment. - Negative DVT * PT appreciated - STR * Appreciate ortho input, Dr. Murphy, LUDWIG and toradol, but pt refuses IV insertion, elevation * Pain control with dilaudid 2mg po q6p, lidoderm patch * F/U with Dr. Muñoz # Atrial fibrillation with RVR # Hypertension # HLD * Continue metoprolol tatrate 25mg bid * Continue amlodipine 5 mg daily * Continue atorvastatin 10 mg daily * Continue aspirin # Hypothyroidism * Continue home meds levothyroxine 50 mcg daily # Anxiety * hydroxyzine 25 mg, 1 tab bid, not on lorazepam anymore * gabapentin 100 mg tid Diet: Heart healthy DVT ppx: mech and pharm FULL CODE Problem List: 1. Leg pain Pain Ratin Pain Location: right knee Pain Goal: Pain 7 or less Pain Plan: dilaudid po Tomorrow's Labs & Rationales: cbc for anemia bep for kidney function DVT/Prophylaxis: mechanical, pharmacological
[2016-08-18 08:00] LABS: ABSOLUTE BASOPHIL COUNT 0 /CUMM (0.0-0.2); ABSOLUTE EOSINOPHIL COUNT 0.4 /CUMM (0.0-0.7); ABSOLUTE GRANULOCYTE CT 1.8 /CUMM (1.4-6.5); ABSOLUTE LYMPH COUNT 1.2 /CUMM (1.2-3.4); ABSOLUTE MONOCYTE COUNT 0.4 /CUMM (0.10-0.60); BASOPHIL % 0.9 % (0.0-2.0); HEMATOCRIT 26.3 % (37-47); MEAN CORPUSCULAR HGB 31.9 PG (27.0-31.0); MEAN CORPUSCULAR HGB CONC 33.9 G/DL (33.0-37.0); MEAN PLATELET VOLUME 6.8 FL (7.4-10.4); PLATELET COUNT 254 /CUMM (130-400); RBC DISTRIBUTION WIDTH 15.2 % (11.5-14.5); WHITE BLOOD CELL COUNT 3.9 /CUMM (4.8-10.8)
[2016-08-18 15:17] VITALS: BP 122/70
--- NOTE | 2016-08-18 16:06 | Cons- Orthopedic ---
General Information and HPI Consulting Request Date of Consult: 08/18/16 Requested By: GORDO SHAIKH,TRAVIS Reason for Consult: Right knee pain Source of Information: patient Exam Limitations: no limitations History of Present Illness: 86yo F with history of atrial fibrillation, HTN, anxiety, and osteoarthritis presented with [facility] with right knee pain. Pain localizes to the lateral patella and radiates along the anterior lower leg to the ankle with ambulation. Pain has prevented her from mobilizing. Denies injury or inciting event; denies history of knee pain on the right. Diffuse lower extremity edema bilaterally (per patient, chronic s/p vein surgery). She is followed by Dr. Muñoz with [facility]. Allergies/Medications Allergies: Coded Allergies: Sulfa (Sulfonamide Antibiotics) (HIVES 11/13/15) cyclobenzaprine (Severe, LIGHTHEADED 11/13/15) nitrofurantoin (Severe, SWEATING, DIZZY, RED ALL OVER, SHAKING 11/13/15) codeine (GI 11/13/15) mushroom (DIZZY 11/13/15) Home Med List: Amlodipine Besylate 5 MG TABLET 1 TAB PO DAILY HIGH BLOOD PRESSURE (Reported) Atorvastatin Calcium (Lipitor) 10 MG TAB 1 TAB PO DAILY CHOLESTEROL (Reported ) Bisacodyl (Dulcolax) 5 MG TABLET.DR 2 TAB PO DAILY GI (Reported) Cholecalciferol (Vitamin D3) 1,000 IU TAB 1 TAB PO DAILY SUPPLEMENT Gabapentin 100 MG CAPSULE 1 CAP PO TID ANXIETY (Reported) Hydroxyzine Pamoate 25 MG CAPSULE 1 CAP PO BID ANXIETY (Reported) Levothyroxine Sodium 50 MCG TABLET 1 TAB PO DAILY THYROID (Reported) Metoprolol Tartrate 25 MG TABLET 1 TAB PO BID Atrial fibrillation (Reported) Current Medications: Current Medications Sig/Yessenia Start time Last Medication Dose Route Stop Time Status Admin Acetaminophen 650 MG Q6P PRN 08/17 1615 AC 08/18 PO 1133 Amlodipine Besylate 5 MG DAILY 08/18 1000 AC 08/18 PO 0907 Aspirin Buffered 81 MG DAILY 08/17 1552 AC 08/18 PO 0906 Atorvastatin Calcium 10 MG DAILY 08/17 1556 AC 08/18 PO 0906 Bisacodyl 10 MG DAILY 08/17 1552 AC 08/18 PO 09 Docusate Sodium 100 MG DAILY 08/17 1617 AC 08/18 PO 0906 Enoxaparin Sodium 40 MG DAILY 08/17 1617 AC 08/18 SC 0907 Furosemide 20 MG ONCE ONE 08/17 1715 DC 08/17 PO 08/17 1716 1755 Gabapentin 100 MG Q8 08/17 1626 AC 08/18 PO 1319 Hydromorphone HCl 2 MG Q6P PRN 08/18 1245 AC 08/18 PO 1242 Hydromorphone HCl 2 MG Q8P PRN 08/17 1645 DC 08/18 PO 0522 Hydromorphone HCl 0.5 MG Q6P PRN 08/17 1630 AC IV Hydromorphone HCl 2 MG .[QHS] PRN 08/17 1600 DC PO Hydromorphone HCl 4 MG Q8P PRN 08/17 1600 DC PO Hydroxyzine HCl 25 MG BID 08/17 2200 AC 08/18 PO 0906 Ketorolac 15 MG Q8 08/18 1400 CAN Tromethamine IV Levothyroxine Sodium 0.05 MG DAILY AC 08/17 1550 AC 08/18 PO 0522 Lidocaine 1 PAT DAILY 08/18 1245 AC 08/18 EXT 1328 Metoprolol Tartrate 0 .STK-MED ONE 08/17 1708 DC PO Metoprolol Tartrate 25 MG BID 08/17 1556 AC 08/18 PO 0907 Miconazole Nitrate 1 CARMITA AT BEDTIME 08/17 2200 AC 08/17 VAG 2353 Patient Medication 1 UNIT ONE NR 08/17 1645 DC 08/18 [facility] 08/17 1700 0800 Patient Medication 1 UNIT ONE NR 08/17 1645 [place] 08/18 [facility] 08/17 1700 0800 Patient Medication 1 UNIT ONE NR 08/17 1645 [place] 08/18 [facility] 08/17 1700 0800 Patient Medication 1 UNIT ONE NR 08/17 1645 DC 08/18 [facility] 08/17 1700 0801 Patient Medication 1 UNIT ONE NR 08/17 1645 [place] 08/18 [facility] 08/17 1700 0800 Past History Medical History Neurological: NONE (left-sided), CVA EENT: benign positional vertigo Cardiovascular: AFIB, hypertension Respiratory: NONE Gastrointestinal: GERD Hepatic: NONE Renal: NONE Musculoskeletal: osteoarthritis, osteoporosis, rheumatoid arthritis, L SCAPULA FX status post vertebroplasty Psychiatric: anxiety Endocrine: hypothyroidism Blood Disorders: DEHYDRATION Cancer(s): NONE MEDICINAL CHEMIST/Reproductive: NONE Surgical History Pertinent Surgical History: appendectomy, cholecystectomy, hysterectomy, knee replacement (left knee), status post venous stripping status post bilateral carpal tunnel surgeries Family History Relations & Conditions If Any: DAUGHTER FH: diabetes mellitus Psychosocial History Where Do You Live? Home Who Do You Live With? self Services at Home: Home Health Aide Smoking Status: Never Smoked ETOH Use: denies use Illicit Drug Use: denies illicit drug use Functional Ability ADLs Independent: dressing, eating, toileting. Needs Assist: bathing. Ambulation: walker IADLs Independent: telephone, medication admin. Needs Assist: shopping, housework, finances, food prep, transportation. Exam & Diagnostic Data Vital Signs and I&O Vital Signs Date Time Temp Pulse Resp B/P B/P Pulse O2 O2 Flow FiO2 Mean Ox Delivery Rate 08/18 1517 98.0 64 20 122/70 93 Room Air 08/18 0907 86 132/68 08/18 0907 86 132/68 08/18 0647 96.8 88 20 130/72 97 Room Air 08/17 2305 97.9 98 20 96/58 94 Room Air 08/17 2143 83 118/64 08/17 1703 96.6 115 18 129/67 98 Room Air Intake & Output 08/18 1600 08/18 0800 08/18 0000 08/17 1600 08/17 0800 08/17 0000 Intake Total 600 240 240 Output Total 550 1050 350 Balance 50 -810 -110 Intake, IV 0 Intake, Oral 600 240 240 Number 2 Bowel Movements Output, Urine 550 1050 350 Patient 125 lb 120 lb Weight Weight Reported by Patient Measurement Method Physical Exam: Eldery female sitting in bed, alert, awake, and in no distress. RLE: Lidoderm patch over right anterior knee. Tender to palpation over right parapatellar region. No medial or lateral joint line tenderness, no pain over tibial tubercle or patellar tendon. No erythema, no cellulitis. Diffuse edema of bilateral lower extremities. Intact EHL/FHL; ankle DF/PF - anterior ankle pain with active dorsiflexion but no tenderness on palpation. Active knee flexion to ~25deg; patient reports pain. Passive knee flexion to ~ 60 deg results in right hip pain. Sensation intact to light touch over right foot. Feet warm, well-perfused. Imaging Results: XR right knee (08/17/16): "Decreased bone mineral density. No fracture or dislocation. Severe lateral tibiofemoral compartment cartilage space narrowing. Moderate medial tibiofemoral compartment cartilage space during. Tricompartmental osteophyte formation. No large knee joint effusion. Subcutaneous edema/soft tissue swelling diffusely about the visualized portion of the right lower extremity." Ultrasound RLE (08/17/16): "Respiratory variation, normal compression and augmented flow are noted throughout the left lower extremity. The visualized common femoral vein, superficial femoral vein, profunda femoral vein, popliteal vein and midcalf peroneal and posterior tibial venous segments show no evidence of deep venous thrombosis. There is no Ruvalcaba's cyst. Subcutaneous edema is present." Assessment/Plan Assessment/Plan 86yo F with right knee pain; xrays show advance lateral compartment arthritis. She reports some improvement with pain medication. 1. WBAT RLE 2. Rest, elevation, anti-inflammatories for conservative management of right knee pain 3. Recommend x-ray of right hip given pain with passive ROM of the knee. 4. May offer gentle compression of RLE with RITA wrap if patient is amenable. 5. Mobilization with PT assist. Consult Acknowledgment - Thank you for your consult request. Attending MD Review Statement Attending Statement Attending MD Statement: examined this patient, reviewed images
--- NOTE | 2016-08-18 19:03 | NUR ---
PATIENT REFUSED XRAYS TO HIP AND PELVIS. TRESTLE MECHANIC KARRIE LAO INFORMED. OK.
[2016-08-18 21:00] VITALS: BP 112/68
--- NOTE | 2016-08-18 21:02 | NUR ---
PATIENT C/O PAIN, 01/14, PO DILAUDID 2MG GIVEN AT 1999, ALONG WITH SCHEDULED ATATAX. PT CONTINUING TO MOAN IN PAIN, AND STARTING TO , THINKING SHE WAS HOME. AT APPROX 2099, GAVE 2 TYLENOL, THEN PT C/O NUMBNESS AND PAIN TO TOES. I SPOKE WITH DR BLACKMON, SHE WILL ORDER TRAMADOL. CONTINUE TO MONITOR.
[2016-08-18 22:39] VITALS: BP 136/74
[2016-08-19 06:44] VITALS: BP 134/70
--- NOTE | 2016-08-19 07:15 | PN- Housestaff ---
TED SHAIKH,TOMMY 08/19/16 0715: Subjective Follow-up For: knee pain Subjective: Pt was feeling miserable today, now complaining of new pain everywhere including left knee (in addition to right knee), right and left ankle, and right and left arm. she is very concerned she kept saying "I can't move my right feet in", but indeed she was moving it. she allowed elevation with pillow to her legs. she refused hip xray because of knee pain, and she doesn't think there is anything wrong with her hip despite me explaining to her that the knee pain might be referred pain from hip pathology. she reports transient relief of pain with dilaudid po, and would like another dose early. I told her that Dr. Murphy reccomended iv toradol but she has to let us put an IV in. she insists that she wants to try the po meds first, before letting us put an iv in. her pain score has been 3-10, and she has been getting dilaudid 2 mg po q6p and tylenol po. Review of Systems Constitutional: Reports: see HPI. Objective Last 24 Hrs of Vital Signs/I&O Vital Signs Date Time Temp Pulse Resp B/P B/P Pulse O2 O2 Flow FiO2 Mean Ox Delivery Rate 08/19 0644 97.7 89 20 134/70 93 Room Air 08/19 0000 Room Air 08/18 2239 97.3 82 20 136/74 98 Room Air 08/18 2100 97.8 84 20 112/68 95 Room Air 08/18 2004 84 112/68 08/18 1600 93 Room Air 08/18 1517 98.0 64 20 122/70 93 Room Air 08/18 0907 86 132/68 08/18 0907 86 132/68 Intake & Output 08/19 1600 08/19 0800 08/19 0000 Intake Total 110 500 Output Total 600 301 Balance -490 199 Intake, Oral 110 500 Number 1 Bowel Movements Output, Stool 1 Output, Urine 600 300 Physical Exam General Appearance: Alert, Oriented X3, Cooperative, Moderate Distress HEENT: Atraumatic Cardiovascular: No Murmurs, irregularly irregular Lungs: Clear to Auscultation, Normal Air Movement Extremities: both right and left knees edematous. , right medial ankle tender to touch Current Medications: Current Medications Sig/Yessenia Start time Last Medication Dose Route Stop Time Status Admin Acetaminophen 650 MG .STK-MED ONE 08/18 2052 DC PO 08/18 205 Acetaminophen 650 MG .STK-MED ONE 08/18 1125 DC PO 08/18 1126 Acetaminophen 650 MG Q6P PRN 08/17 1615 AC 08/19 PO 0801 Amlodipine Besylate 5 MG DAILY 08/18 1000 AC 08/18 PO 0907 Aspirin Buffered 81 MG DAILY 08/17 1552 AC 08/18 PO 0906 Atorvastatin Calcium 10 MG DAILY 08/17 1556 AC 08/18 PO 0906 Bisacodyl 10 MG DAILY 08/17 1552 AC 08/18 PO 0906 Docusate Sodium 100 MG DAILY 08/17 1617 AC 08/18 PO 0906 Enoxaparin Sodium 40 MG DAILY 08/17 1617 AC 08/18 SC 0907 Gabapentin 100 MG Q8 08/17 1626 AC 08/19 PO 0601 Hydromorphone HCl 2 MG ONCE ONE 08/19 0845 DC 08/19 PO 08/19 0846 0841 Hydromorphone HCl 2 MG Q6P PRN 08/18 1245 AC 08/18 PO 1956 Hydromorphone HCl 2 MG Q8P PRN 08/17 1645 DC 08/18 PO 0522 Hydromorphone HCl 0.5 MG Q6P PRN 08/17 1630 AC IV Hydroxyzine HCl 25 MG BID 08/17 2200 AC 08/18 PO 2004 Ketorolac 15 MG Q6 08/19 0845 AC Tromethamine IV Ketorolac 15 MG Q8 08/18 1400 CAN Tromethamine IV Levothyroxine Sodium 0.05 MG DAILY AC 08/17 1550 AC 08/19 PO 0601 Lidocaine 1 PAT DAILY 08/18 1245 AC 08/19 EXT 0803 Metoprolol Tartrate 25 MG BID 08/17 1556 AC 08/18 PO 2004 Miconazole Nitrate 1 CARMITA AT BEDTIME 08/17 2200 AC 08/18 VAG 2012 Tramadol HCl 50 MG ONCE ONE 08/18 2114 DC 08/18 PO 08/18 Last 24 Hrs of Lab/Karel Results Last 24 Hrs of Labs/Mics: Laboratory Tests 08/19/16 0624: Sodium Pending, Potassium Pending, Chloride Pending, Carbon Dioxide Pending, Anion Gap Pending, BUN Pending, Creatinine Pending, BUN/Creatinine Ratio Pending , CBC w Diff Pending, WBC Pending, RBC Pending, Hgb Pending, Hct Pending, MCV Pending, MCH Pending, RDW Pending, Plt Count Pending, MPV Pending, PUBS MCHC Pending Assessment/Plan Assessment: 86-year-old female with PMH atrial fibrillation with RVR not on anticoagulation due to recurrent fall and GI bleed (which pt denies), hypertension, hypothyroidism, osteoarthritis, rheumatoid arthritis, presented to the ED for worsening right knee pain. She was not able to bear weight on the right lower extremity, hence she was admitted for possibly rehab placement. PT has recommended rehab placement # Right knee pain, left knee pain, right and left ankle pain, right and left arm pain - No acute osseous abnormality demonstrated - Right knee osteoarthritis, severe in the lateral tibiofemoral compartment - Negative DVT * PT appreciated - recc STR, pt wants to go home * Appreciate ortho input, LUDWIG Faith and toradol, but pt currently has no IV access because she refuses IV placement. continue elevation * Pain control with dilaudid 2mg po q6p,tramadol 50q6, lidoderm patch. toradol 15 q 6 scheduled if allow IV (discontinued bc pt refuses iv placement) * WBAT * Right hip xray when pt agrees * F/U with Dr. Muñoz * Attempted to get inpatient consult with Dr. Mckeon however Dr. Mckeon not in this week # Atrial fibrillation with RVR # Hypertension # HLD * Continue metoprolol tatrate 25mg bid * Continue amlodipine 5 mg daily * Continue atorvastatin 10 mg daily * Continue aspirin # Hypothyroidism * Continue home meds levothyroxine 50 mcg daily # Anxiety * hydroxyzine 25 mg, 1 tab bid, not on lorazepam anymore * gabapentin 100 mg tid Diet: Heart healthy DVT ppx: mech and pharm FULL CODE Problem List: 1. Leg pain Pain Ratin Pain Location: right and left ankle, knee, arm Pain Goal: Pain 7 or less Pain Plan: toradol dilaudid po dilaudid iv tylenol po Tomorrow's Labs & Rationales: bep for kyperkalemia DVT/Prophylaxis: mechanical, pharmacological ARIELLE GONZALEZ 08/19/16 1222: Attending MD Review Statement Attending Statement Attending MD Statement: examined this patient, discuss w/resident/PA/REEL SLITTER, agreed w/resident/PA/REEL SLITTER, discussed with family, reviewed EMR data (avail), discussed with nursing, discussed with case mgmt, reviewed images, amended to note Attending Assessment/Plan: A/P; 86-year-old female with past medical history significant for atrial fibrillation with RVR not on anticoagulation, hypertension, hypothyroidism, osteoarthritis, rheumatoid arthritis admitted with worsening/acute on chronic right knee pain and difficulty with ambulation. Patient not coperative with current management. Orthopedic consult was called and Dr. Murphy recommended RICE. Pain control, consider rheum consult for advanced arthropathy if she is coperative. Continue current pain medications, avoid NSAIDS with history of GI bleed. DVT prophylaxis: Lovenox. Patient seen by PT and they recommended STR. Patient refusing STR despite explaining risks/benefits of current management.
[2016-08-19 08:36] LABS: ABSOLUTE BASOPHIL COUNT 0 /CUMM (0.0-0.2); ABSOLUTE EOSINOPHIL COUNT 0.4 /CUMM (0.0-0.7); ABSOLUTE GRANULOCYTE CT 1.7 /CUMM (1.4-6.5); ABSOLUTE LYMPH COUNT 1.3 /CUMM (1.2-3.4); ABSOLUTE MONOCYTE COUNT 0.4 /CUMM (0.10-0.60); BASOPHIL % 0.8 % (0.0-2.0); EOSINOPHIL % 10.5 % (0-5); GRANULOCYTE % 43.7 % (42.2-75.2); MEAN CORPUSCULAR HGB 31.5 PG (27.0-31.0); MEAN CORPUSCULAR HGB CONC 33.6 G/DL (33.0-37.0); MEAN CORPUSCULAR VOLUME 93.8 FL (81.0-99.0); MEAN PLATELET VOLUME 6.8 FL (7.4-10.4); PLATELET COUNT 253 /CUMM (130-400); RBC DISTRIBUTION WIDTH 15.5 % (11.5-14.5); RED BLOOD CELL CT 2.89 /CUMM (4.20-5.40); WHITE BLOOD CELL COUNT 3.8 /CUMM (4.8-10.8)
[2016-08-19] MEDS ORDERED: TRAMADOL HCL50 M1 PO (13:42)
--- NOTE | 2016-08-19 13:48 | Patient Discharge Instructions ---
Discharge Instructions General Discharge Information You were seen/treated for: Knee pain Special Instructions: Please follow up with PCP and Dr. Muñoz in week Weight bear as tolerated Please restart amlodipine if blood pressure consistently more than systolic 140 Diet Continue normal diet: Yes Activity Full Activity/No Limits: Yes Acute Coronary Syndrome Inclusion Criteria At DC or during hospital stay patient has or had the following: ACS DIAGNOSIS No Discharge Core Measures Meds if any: Prescribed or Continued at Discharge Meds if any: NOT Prescribed or Continued at Discharge Congestive Heart Failure Inclusion Criteria At DC or during hospital stay patient has or had the following: CHF DIAGNOSIS No Discharge Core Measures Meds if any: Prescribed or Continued at Discharge Meds if any: NOT Prescribed or Continued at Discharge Cerebrovascular accident Inclusion Criteria At DC or during hospital stay patient has or had the following: CVA/TIA Diagnosis No Discharge Core Measures Meds if any: Prescribed or Continued at Discharge Meds if any: NOT Prescribed or Continued at Discharge Venous thromboembolism Inclusion Criteria VTE Diagnosis No VTE Type NONE VTE Confirmed by (Test) NONE Discharge Core Measures - Per Current guidelines, there needs to be overlap - treatment for the first 5 days of Warfarin therapy. - If discharged on Warfarin prior to 5 days of - overlap therapy, the patient will need to be - assessed for post discharge needs including - *Post discharge parental anticoagulation - *Warfarin and/or parental anticoagulation education - *Follow up date to check INR post discharge At least 5 days overlap therapy as Inpatient No Meds if any: Prescribed or Continued at Discharge Note: Overlap Therapy is Warfarin and Anticoagulant Meds if any: NOT Prescribed or Continued at Discharge
[2016-08-19 14:35] VITALS: BP 128/70; BP 98/68
--- NOTE | 2016-08-19 15:57 | PN- Orthopedic ---
Surgical Brief Attending Note Brief Attending Note: Patient seen and examined this morning; doing well. Reports relief in right knee pain with dilaudid. Able to sleep well through the night. Exam: Lidoderm patch to anterior right knee. Tender to palpation over right lateral parapatellar knee, anterior lower leg and calf, and right ankle. Knee flexion limited to 30deg this morning. Pain in right hip with knee motion. Diffuse edema to RLE. Intact EHL/FHL, ankle DF/PF. Sensation intact to light touch over right foot; foot warm and well-perfused. A/P: 86yo F with right knee pain; advanced degenerative arthritis of left lateral compartment. Recommend conservative treatment with ice, elevation, anti -inflammatories, and compression. Would highly recommend limited use of narcotic medication in this patient. PT evaluation for mobilization. Recommend xray of right hip given hip pain with knee motion (ordered but not done yet). Plan for follow up with with Dr. Muñoz as outpatient.
[2016-08-19] MEDS ORDERED: LIDODERM1 EACH TOP (16:15)
--- NOTE | 2016-08-19 16:15 | NUR ---
wound care: requested by nursing staff to evluate pt for skin alteration poa - pt in bed c/o severe pain to legs, feet, hips, and back - pt refusing this mortgage or loan underwriter to assess, reposition, or evaluate skin integrity - pt also refusing any type of hands on care to support extremities to allow for offloading - after much emotional support, pt allowed this mortgage or loan underwriter to evaluate skin to buttocks briefly - aren buttocks slightly violaceous hue intact skin - pt reported she frequently gets dry skin, in which she has been followed by dermatology - currently on size elam mattress recommendation: due to pts severe immobility and increase c/o of pain with refusal to reposition and offload by nursing staff, i would strongly recommend a clinitron mattress to prevent any further deterioration of skin integrity as pt is non adherent to current plan of care - reported to nurse - pt to be dc tomorrow to [facility] - cont with skin protocol
[2016-08-19 22:50] VITALS: BP 110/70
--- NOTE | 2016-08-20 00:15 | NUR ---
08/19/16 AT 2254. PATIENT BP 96/58. APICAL PULSE 72. PATIENT STABLE. PT DENIES DIZINESS AND LIGHT HEADEDNESS. NO S&S OF HYPOTENTION. NO DISTRESS NOTED. SCHEDULED 2200 LOPRESSOR HELD. MD ARIZA AWARE. WILL CONTINUE TO MONITOR.
[2016-08-20 06:15] VITALS: BP 110/60
--- NOTE | 2016-08-20 07:06 | PN- Housestaff ---
TED SHAIKH,TOMMY 08/20/16 0706: Subjective Follow-up For: knee pain Subjective: Pain scores reviewed: 8,8,5,5,9,3,6,4,3,6,4. pt has been getting tramadol around the clock and dilaudid po for pain control. Pt aware that she will most likely go to rehab today even though she would prefer to go home or stay in the hospital. this morning she complains of right knee stiffness, and back pain. vitals overnight reviewed - pt's bp was 96/58 with hr of 70, metoprolol pm was held. she was also saturating 89% on ra, hence she was put on o2 via nc for short period of time. otherwise pt was stable. labs still pending from this morning. Review of Systems Constitutional: Reports: see HPI. Objective Last 24 Hrs of Vital Signs/I&O Vital Signs Date Time Temp Pulse Resp B/P B/P Pulse O2 O2 Flow FiO2 Mean Ox Delivery Rate 08/20 0615 97.7 83 20 110/60 90 Room Air 08/19 2257 72 96/58 08/19 2250 98.0 68 20 110/70 94 Nasal Cannula 08/19 1435 98.1 62 20 98/68 92 Room Air 08/19 1046 Room Air 08/19 0939 88 130/68 08/19 0939 88 130/68 Intake & Output 08/20 0800 08/20 0000 08/19 1600 Intake Total 360 480 Output Total 25 300 450 Balance -25 60 30 Intake, Oral 360 480 Number 2 Bowel Movements Output, Urine 25 300 450 Physical Exam General Appearance: Alert, Oriented X3, Cooperative, Mild Distress HEENT: Atraumatic Cardiovascular: irregularly irregular rate Lungs: Clear to Auscultation, Normal Air Movement Abdomen: Normal Bowel Sounds, Soft, No Tenderness Neurological: Normal Speech Extremities: chronic edema of bilateral lower extremities Current Medications: Current Medications Sig/Yessenia Start time Last Medication Dose Route Stop Time Status Admin Acetaminophen 650 MG .STK-MED ONE 08/19 0800 DC PO 08/19 0801 Acetaminophen 650 MG Q6P PRN 08/17 1615 AC 08/19 PO 0801 Amlodipine Besylate 5 MG DAILY 08/18 1000 AC 08/19 PO 0939 Aspirin Buffered 81 MG DAILY 08/17 1552 AC 08/19 PO 0939 Atorvastatin Calcium 10 MG DAILY 08/17 1556 AC 08/19 PO 0939 Bisacodyl 10 MG DAILY 08/17 1552 AC 08/19 PO 0939 Docusate Sodium 100 MG DAILY 08/17 1617 AC 08/19 PO 0939 Enoxaparin Sodium 40 MG DAILY 08/17 1617 AC 08/19 SC 0939 Gabapentin 100 MG Q8 08/17 1626 AC 08/20 PO 0631 Hydromorphone HCl 2 MG Q6P PRN 08/19 1415 AC 08/20 PO 0359 Hydromorphone HCl 2 MG Q4P PRN 08/19 1015 DC 08/19 PO 1043 Hydromorphone HCl 2 MG ONCE ONE 08/19 0845 DC 08/19 PO 08/19 0846 0841 Hydromorphone HCl 2 MG Q6P PRN 08/18 1245 DC 08/18 PO 1956 Hydromorphone HCl 0.5 MG Q6P PRN 08/17 1630 AC IV Hydroxyzine HCl 25 MG BID 08/17 2200 AC 08/19 PO 2254 Ketorolac 15 MG Q6 08/19 0845 DC Tromethamine IV Levothyroxine Sodium 0.05 MG DAILY AC 08/17 1550 AC 08/20 PO 0631 Lidocaine 1 PAT DAILY 08/18 1245 AC 08/19 EXT 0803 Metoprolol Tartrate 25 MG BID 08/17 1556 AC 08/19 PO 0939 Miconazole Nitrate 1 CARMITA AT BEDTIME 08/17 2200 AC 08/19 VAG 2254 Patient Medication 1 ED .STK-MED ONE 08/19 1253 DC Teaching ED 08/19 1254 Polyethylene Glycol 17 GM DAILY 08/19 1028 AC 08/19 PO 1135 Tramadol HCl 50 MG Q6 08/19 1344 AC 08/20 PO 0631 Assessment/Plan Assessment: 86-year-old female with PMH atrial fibrillation with RVR not on anticoagulation due to recurrent fall and GI bleed (which pt denies), hypertension, hypothyroidism, osteoarthritis, rheumatoid arthritis, presented to the ED for worsening right knee pain. She was not able to bear weight on the right lower extremity, hence she was admitted for possibly rehab placement. PT has recommended rehab placement # Right knee pain, left knee pain, right and left ankle pain, right and left arm pain - No acute osseous abnormality demonstrated - Right knee osteoarthritis, severe in the lateral tibiofemoral compartment - Negative DVT * PT appreciated - recc STR, pt wants to go home * Appreciate ortho input, Dr. Murphy, LUDWIG and toradol, but pt currently has no IV access because she refuses IV placement. continue elevation * Pain control with dilaudid 2mg po q6p,tramadol 50q6 scheduled, lidoderm patch. * WBAT * Right hip xray when pt agrees (pt has been refusing) * F/U with Dr. Muñoz * Attempted to get inpatient consult with Dr. Mckeon however Dr. Mckeon not in this week # Atrial fibrillation with RVR # Hypertension # HLD * Continue metoprolol tatrate 25mg bid (hold if hypotensive) * Continue amlodipine 5 mg daily * Continue atorvastatin 10 mg daily * Continue aspirin # Hypothyroidism * Continue home meds levothyroxine 50 mcg daily # Anxiety * hydroxyzine 25 mg, 1 tab bid, not on lorazepam anymore * gabapentin 100 mg tid Diet: Heart healthy DVT ppx: mech and pharm FULL CODE Problem List: 1. Leg pain Pain Ratin Pain Location: knee and back Pain Goal: Pain 7 or less Pain Plan: dilaudid tramadol Tomorrow's Labs & Rationales: none DVT/Prophylaxis: mechanical, pharmacological ARIELLE GONZALEZ 08/20/16 1124: Attending MD Review Statement Attending Statement Attending MD Statement: examined this patient, discuss w/resident/PA/MECHANICAL TECHNICAL SERVICE SPECIALIST, agreed w/resident/PA/MECHANICAL TECHNICAL SERVICE SPECIALIST, discussed with family, reviewed EMR data (avail), discussed with nursing, discussed with case mgmt, reviewed images, amended to note Attending Assessment/Plan: A/P; 86-year-old female with past medical history significant for atrial fibrillation with RVR not on anticoagulation, hypertension, hypothyroidism, osteoarthritis, rheumatoid arthritis admitted with worsening/acute on chronic right knee pain and difficulty with ambulation. Patient not coperative with current management. Orthopedic consult was called and Dr. Murphy recommended LUDWIG. Pain control, consider rheum consult for advanced arthropathy if she is coperative. Continue current pain medications, avoid NSAIDS with history of GI bleed. DVT prophylaxis: Lovenox. Patient seen by PT and they recommended STR. Patient refusing STR despite explaining risks/benefits of current management. anticipate d/c soon.
--- NOTE | 2016-08-20 12:10 | NUR ---
PT. VOMITTED X1 SUDDENLY, NO NAUSEA PRIOR. DR. JEAN CONTACTED AND ZOFRAN 4MG ODT ORDERED AND ADMIN. PT. HAS STATED NO RELIEF FROM NAUSEA, THOUGH NO FURTHER VOMITTING EPISODES.
--- NOTE | 2016-08-20 12:28 | Discharge Summary ---
Visit Information Visit Dates Admission Date: 08/17/16 Discharge Date: 08/21/2016 Hospital Course Course Attending Physician: ARIELLE GONZALEZ MD Primary Care Physician: GEOVANNA SHAIKH,WALDEMAR Monet Consulting Request: Consulting Specialty: Orthopedics Hospital Course: This is a 86-year-old lady with PMH atrial fibrillation with RVR not on anticoagulation, hypertension, hypothyroidism, osteoarthritis, rheumatoid arthritis, presented to the ED for worsening right knee pain. Ph/ex at the time of admission: Vital Signs Date Time Temp Pulse Resp B/P B/P Pulse O2 O2 Flow FiO2 Mean Ox Delivery Rate 08/17 1459 97.5 116 18 124/58 98 Room Air 08/17 1324 97.7 98 18 127/85 97 Room Air 08/17 1020 97.2 100 16 122/62 96 Room Air 08/17 1018 98 Room Air General Appearance Alert, Oriented X3, Cooperative, No Acute Distress Skin right hand more red compared to left HEENT Atraumatic, Mucous Membr. moist/pink Neck No JVD, +2 Carotid Pulse wo Bruit Cardiovascular irregularly irregular rate Lungs Clear to Auscultation, Normal Air Movement Abdomen Normal Bowel Sounds, Soft, No Tenderness Extremities 3+ bilateral pitting edema up to mid thigh. appears red non tender , 15 degreees ROM on knee flexion bilaterally. ROM limited due to pain Vascular radial pulse normal difficult to assess pulses on the feet due to edema , normal cap refill Pertinent Lab data on admission: 08/17/16 1207: Urinalysis LIGHT H, Urine Color YEL, Urine Clarity HAZY H, Urine pH 6.0, Ur Specific [place] 1.020, Urine Protein TRACE H, Urine Ketones NEG, Urine Nitrite NEG, Urine Bilirubin NEG, Urine Urobilinogen 0.2, Ur Leukocyte Esterase TRACE H , Ur Microscopic SEDIMENT EXAMINED, Urine RBC RARE, Urine WBC 1-3 H, Ur Epithelial Cells RARE, Urine Bacteria MANY H, Hyaline Casts RARE H, Micro UA Comment [place] YEAST H, Urine Hemoglobin NEG, Urine Glucose NEG 08/17/16 1039: Anion Gap 11, Estimated GFR 60, BUN/Creatinine Ratio 43.3 H, Glucose 84, Calcium 8.7, Total Bilirubin 0.8, AST 38 H, ALT 38, Alkaline Phosphatase 71, Total Protein 6.8, Albumin 3.9, Globulin 2.9, Albumin/Globulin Ratio 1.3, CBC w Diff NO MAN DIFF REQ, RBC 2.98 L, MCV 94.4, MCH 31.9 H, RDW 15.1 H, MPV 6.7 L, Gran % 41.9 L, Lymphocytes % 34.6, Monocytes % 12.9 H, Eosinophils % 9.7 H , Basophils % 0.9, Absolute Granulocytes 1.6, Absolute Lymphocytes 1.3, Absolute Monocytes 0.5, Absolute Eosinophils 0.4, Absolute Basophils 0, PUBS MCHC 33.7 Pertinent Imaging on admission: -US TRIPLEX LOWER EXTREMITY, RIGHT:There is no evidence of deep vein thrombosis, Subcutaneous edema is noted. -XR KNEE, RIGHT:No acute osseous abnormality demonstrated. Right knee osteoarthritis, severe in the lateral tibiofemoral compartment. The patient was admitted to [facility] floor, the following problems were addressed during the course of her hospital stay: #Worsening/acute on chronic right knee pain and difficulty with ambulation. During her hospital stay patient also reported left knee pain, right and left ankle pain, right and left arm pain all of which were chronic. DVT negative. PT and ortho consult placed. Orhto recommended RICE. Patient was maintained on dilaudid ,tramadol and lidoderm patch for pain control. Ortho also recommended right hip x-ray has however patient refused. Weightbearing as tolerated. Was maintained on aggressive bowel regimen while on pain meds. Patient reported nausea on 08/20/2016 which was controlled with Zofran. * Right hip xray when patient agrees. * F/U with Dr. Muñoz as outpatient * Consider rheum consult for advanced arthropathy if she is cooperative. * Avoid NSAIDS with history of GI bleed. [facility] website checked before prescribing pain meds for discharge. # Atrial fibrillation with RVR, Hypertension, HLD The patient was maintained on metoprolol tatrate 25mg bid (hold if hypotensive), amlodipine 5 mg daily and atorvastatin 10 mg daily and aspirin. Amlodipine held on 08/21/16 for borderline blood pressure. To be stopped upon discharge; patient should be reassessed by a physician within few days of discharge for possible restarting of amlodipine if BP tolerates. 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 of hydroxyzine 25 mg, 1 tab bid, and gabapentin 100 mg tid Diet: Heart healthy DVT ppx: SC Lovenox Complications: None Allergies: Coded Allergies: Sulfa (Sulfonamide Antibiotics) (HIVES 11/13/15) cyclobenzaprine (Severe, LIGHTHEADED 11/13/15) nitrofurantoin (Severe, SWEATING, DIZZY, RED ALL OVER, SHAKING 11/13/15) codeine (GI 11/13/15) mushroom (DIZZY 11/13/15) Pertinent Lab Results: Laboratory Tests 08/20/16 0820: Anion Gap 7, Estimated GFR 60, BUN/Creatinine Ratio 28.9 H 08/19/16 0624: Anion Gap 9, Estimated GFR 53 L, BUN/Creatinine Ratio 34.0 H, CBC w Diff NO MAN DIFF REQ, RBC 2.89 L, MCV 93.8, MCH 31.5 H, RDW 15.5 H, MPV 6.8 L, Gran % 43.7, Lymphocytes % 34.6, Monocytes % 10.4 H, Eosinophils % 10.5 H, Basophils % 0.8, Absolute Granulocytes 1.7, Absolute Lymphocytes 1.3, Absolute Monocytes 0.4, Absolute Eosinophils 0.4, Absolute Basophils 0, PUBS MCHC 33.6 08/18/16 0626: Anion Gap 7, Estimated GFR 53 L, BUN/Creatinine Ratio 33.0 H, CBC w Diff NO MAN DIFF REQ, RBC 2.80 L, MCV 94.0, MCH 31.9 H, RDW 15.2 H, MPV 6.8 L, Gran % 46.0, Lymphocytes % 31.8, Monocytes % 11.3 H, Eosinophils % 10.0 H, Basophils % 0.9, Absolute Granulocytes 1.8, Absolute Lymphocytes 1.2, Absolute Monocytes 0.4, Absolute Eosinophils 0.4, Absolute Basophils 0, PUBS MCHC 33.9 Disposition Summary Disposition Principal Diagnosis: Rt Knee pain Additional Diagnosis: A.fib HTN HLD Discharge Disposition: SNF Discharge Instructions General Discharge Information Code Status: Full Code Patient's Diet: Cardiac Patient's Activity: As tolerated Follow-Up Instructions/Appts: Please follow up with PCP and Dr. Muñoz in week Weight bear as tolerated Please restart amlodipine if blood pressure consistently more than systolic 140 Medications at Discharge Discharge Medications: Stop taking the following medications: Amlodipine Besylate (Amlodipine Besylate) 5 MG TABLET ORAL DAILY Continue taking these medications: Atorvastatin Calcium (Lipitor) 10 MG TAB 1 Tablet ORAL DAILY Comments: LAST DOSE GIVEN ON 03/30/15 AT 4:00PM Cholecalciferol (Vitamin D3) 1,000 IU TAB 1 Tablet ORAL DAILY Days = 30 Comments: NOT GIVEN IN HOSPITAL Bisacodyl (Dulcolax) 5 MG TABLET.DR 2 Tablet ORAL DAILY Comments: Last Taken: 08/21/16 Time: 9:00 AM Levothyroxine Sodium (Levothyroxine Sodium) 50 MCG TABLET 1 Tablet ORAL DAILY Qty = 90 Comments: Last Taken: 08/21/16 Time: 6:00 AM Metoprolol Tartrate (Metoprolol Tartrate) 25 MG TABLET 1 Tablet ORAL TWICE DAILY Comments: Last Taken: 08/21/16 Time: 9:00 AM Gabapentin (Gabapentin) 100 MG CAPSULE 1 Capsule ORAL THREE TIMES DAILY Comments: Last Taken: 08/21/16 Time: 6:00 AM Hydroxyzine Pamoate (Hydroxyzine Pamoate) 25 MG CAPSULE 1 Capsule ORAL TWICE DAILY Comments: Last Taken: 08/21/16 Time: 9:00 AM Aspirin (Aspirin*) 81 MG TAB.CHEW 1 Tablet ORAL DAILY Days = 30 Start taking the following new medications: Hydromorphone HCl (Hydromorphone HCl) 2 MG TABLET 2 Milligram ORAL EVERY SIX HOURS NEEDED as needed for SEVERE PAIN Qty = 15 No Refills Comments: Last Taken: 08/21/16 Time: 9:00 AM Tramadol HCl (Tramadol HCl) 50 MG TABLET 1 Tablet ORAL THREE TIMES A DAY NEEDED Qty = 30 No Refills Comments: Last Taken: 08/21/16 Time: 6:30 AM Lidocaine (Lidoderm) 5 % ADH..PATCH 1 Patch On the skin DAILY Qty = 10 No Refills Instructions: may wear up to 12 hours Comments: Last Taken: 08/21/16 Time: 9:00 AM Ondansetron HCl (Zofran) 4 MG TABLET 1 Tablet ORAL Every 6-8 Hours as Needed Qty = 5 No Refills Comments: Last Taken: 08/20/16 Time: 12:00 PM Calcium Carbonate/Simethicone (Maalox Advanced Tab Chew) 1,000 MG-60 MG TAB.CHEW 1 Tablet ORAL DAILY as needed for GAS Qty = 5 No Refills Comments: NOT GIVEN IN HOSPTIAL Copies To: GEOVANNA SHAIKH,WALDEMAR Monet
[2016-08-20] MEDS ORDERED: ASPIRIN81 M4 PO (13:19)
[2016-08-20] MEDS ORDERED: ZOFRAN4 M2 PO (14:24)
[2016-08-20] MEDS ORDERED: MAALOX ADVANCE1 EACH PO (14:24)
--- NOTE | 2016-08-20 14:46 | Event Note ---
Event Note Event Note: Pt was feeling nauseous, did not eat her lunch, threw up her breakfast from this morning, and dinner from last night. She is feeling better with zofran but she does not feel comfortable going to rehab with the nausea. Plan for discharge to rehab tomorrow if patient tolerates diet well.
[2016-08-20 15:46] VITALS: BP 104/60
[2016-08-20 22:26] VITALS: BP 98/62
--- NOTE | 2016-08-21 07:02 | PN- Housestaff ---
TED SHAIKH,TOMMY 08/21/16 0702: Subjective Follow-up For: knee pain Subjective: she had just received tramadol about an hour before i saw her, and she reports "no pain at all". she is agreeable to go to rehab this morning. she ate 100% of her dinner. denies nausea and vomiting at this time. as her bp is borderline on the pain meds, we will hold amlodipine, and continue metoprolol Review of Systems Constitutional: Reports: see HPI. Objective Last 24 Hrs of Vital Signs/I&O Vital Signs Date Time Temp Pulse Resp B/P B/P Pulse O2 O2 Flow FiO2 Mean Ox Delivery Rate 08/21 0703 98.9 97 18 100/60 97 Room Air 08/20 2226 98.7 95 18 98/62 99 Room Air 08/20 1600 Room Air 08/20 1546 97.7 84 20 104/60 92 Room Air Intake & Output 08/21 0800 08/21 0000 08/20 1600 Intake Total 210 350 540 Output Total 250 350 280 Balance -40 0 260 Intake, IV 0 Intake, Oral 210 350 540 Number 0 Bowel Movements Output, 80 Emesis Output, Urine 250 350 200 Patient 56.699 kg Weight Physical Exam General Appearance: Alert, Oriented X3, Cooperative, No Acute Distress Cardiovascular: irregularly irregular rate Lungs: Clear to Auscultation Abdomen: Normal Bowel Sounds, Soft, No Tenderness Neurological: Normal Speech Extremities: chronic edema both legs Current Medications: Current Medications Sig/Yessenia Start time Last Medication Dose Route Stop Time Status Admin Acetaminophen 650 MG Q6P PRN 08/17 1615 AC 08/19 PO 0801 Al Hydroxide/Mg 30 ML Q4-6 PRN PRN 08/20 1500 AC Hydroxide PO Amlodipine Besylate 5 MG DAILY 08/18 1000 AC 08/20 PO 0914 Aspirin Buffered 81 MG DAILY 08/17 1552 AC 08/20 PO 0913 Atorvastatin Calcium 10 MG DAILY 08/17 1556 AC 08/20 PO 0914 Bisacodyl 10 MG DAILY 08/17 1552 AC 08/20 PO 0913 Docusate Sodium 100 MG DAILY 08/17 1617 AC 08/20 PO 0913 Enoxaparin Sodium 40 MG DAILY 08/17 1617 AC 08/20 SC 0915 Gabapentin 100 MG Q8 08/17 1626 AC 08/21 PO 0633 Hydromorphone HCl 2 MG Q6P PRN 08/19 1415 AC 08/21 PO 0128 Hydromorphone HCl 0.5 MG Q6P PRN 08/17 1630 AC IV Hydroxyzine HCl 25 MG BID 08/17 2200 AC 08/20 PO 2026 Levothyroxine Sodium 0.05 MG DAILY AC 08/17 1550 AC 08/21 PO 0633 Lidocaine 1 PAT DAILY 08/18 1245 AC 08/20 EXT 0914 Metoprolol Tartrate 25 MG BID 08/17 1556 AC 08/20 PO 0913 Miconazole Nitrate 1 CARMITA AT BEDTIME 08/17 2200 AC 08/20 VAG 2025 Ondansetron HCl 4 MG Q6P PRN 08/20 1445 AC PO Ondansetron HCl 4 MG ONCE ONE 08/20 1215 DC 08/20 PO 08/20 1216 1238 Polyethylene Glycol 17 GM DAILY 08/19 1028 AC 08/20 PO 0915 Tramadol HCl 50 MG Q6 08/19 1344 AC 08/21 PO 0633 Last 24 Hrs of Lab/Karel Results Last 24 Hrs of Labs/Mics: Laboratory Tests 08/20/16 0820: Anion Gap 7, Estimated GFR 60, BUN/Creatinine Ratio 28.9 H Assessment/Plan Assessment: 86-year-old female with PMH atrial fibrillation with RVR not on anticoagulation due to recurrent fall and GI bleed (which pt denies), hypertension, hypothyroidism, osteoarthritis, rheumatoid arthritis, presented to the ED for worsening right knee pain. She was not able to bear weight on the right lower extremity, hence she was admitted for possibly rehab placement. PT has recommended rehab placement # Right knee pain, left knee pain, right and left ankle pain, right and left arm pain - No acute osseous abnormality demonstrated - Right knee osteoarthritis, severe in the lateral tibiofemoral compartment - Negative DVT * PT appreciated - recc STR, pt wants to go home * Appreciate ortho input, LUDWIG Faith and laci, but pt currently has no IV access because she refuses IV placement. continue elevation * Pain control with dilaudid 2mg po q6p,tramadol 50q6 scheduled, lidoderm patch. * WBAT * Right hip xray when pt agrees (pt has been refusing) * F/U with Dr. Muñoz * Attempted to get inpatient consult with Dr. Mckeon however Dr. Mckeon not in this week # Atrial fibrillation with RVR # Hypertension # HLD * Continue metoprolol tatrate 25mg bid (hold if hypotensive) * HOLD amlodipine 5 mg daily as BP borderline with pain meds, will restart if BP > 140 * Continue atorvastatin 10 mg daily * Continue aspirin # Hypothyroidism * Continue home meds levothyroxine 50 mcg daily # Anxiety * hydroxyzine 25 mg, 1 tab bid, not on lorazepam anymore * gabapentin 100 mg tid Diet: Heart healthy DVT ppx: mech and pharm FULL CODE Problem List: 1. Leg pain Pain Ratin Pain Location: none Pain Goal: Pain 4 or less Pain Plan: tramadol dilaudid [facility] & Rationales: none Consulting Request: Consulting Specialty: Orthopedics ARIELLE GONZALEZ 08/21/16 1111: Attending MD Review Statement Attending Statement Attending MD Statement: examined this patient, discuss w/resident/PA/WOOD PANEL INSPECTOR, agreed w/resident/PA/WOOD PANEL INSPECTOR, discussed with family, reviewed EMR data (avail), discussed with nursing, discussed with case mgmt, reviewed images, amended to note Attending Assessment/Plan: A/P; 86-year-old female with past medical history significant for atrial fibrillation with RVR not on anticoagulation, hypertension, hypothyroidism, osteoarthritis, rheumatoid arthritis admitted with worsening/acute on chronic right knee pain and difficulty with ambulation. Orthopedic consult was called and Dr. Murphy recommended RICE. Pain control, consider rheum consult for advanced arthropathy if she is coperative. Continue current pain medications, avoid NSAIDS with history of GI bleed. DVT prophylaxis: Lovenox. Patient seen by PT and they recommended STR. Patient acceptable to STR now. anticipate d/c soon.
[2016-08-21 07:03] VITALS: BP 100/60
[2016-08-21 08:00] VITALS: BP 100/60
[2016-08-21 08:54] VITALS: BP 102/62
[2016-08-21] MEDS ORDERED: HYDROMORPHONE HC2 M1 PO (09:04)
[2016-08-21] MEDS ORDERED: VITAMIN D31000 UNI2 PO (09:53)
[2016-08-21] MEDS ORDERED: ATORVASTATIN CA10 M1 PO (09:53)
== END 2016-08-21 11:50 | DRG 554 ==
LOC: ERH 10:08 → 2NB 16:24 → ERHI 16:24 → ENRESERV 16:38 → 2NB 17:29 → ENPENDDIS 08-21 07:46 → 2NB 08-21 11:50
PROVIDERS: Emergency Medicine; Radiology Diagnostic Radiology; Student in an Organized Health Care Education/Training Program; ADMIT Hospitalist
DX: M17.11 Unilateral primary osteoarthritis, right knee (principal); I48.91 Unspecified atrial fibrillation; M06.9 Rheumatoid arthritis, unspecified; R26.2 Difficulty in walking, not elsewhere classified; I10 Essential (primary) hypertension; E03.9 Hypothyroidism, unspecified; K21.9 Gastro-esophageal reflux disease without esophagitis; F41.9 Anxiety disorder, unspecified
CPT/HCPCS: 2NBSP; 36415; 73562-RT; 81001; 82436; 96372; 97110-GO; 97116-GO; 97161-GP; 97530-GO; J1650; J1885; J3101